=== PATIENT | female | born 1945 | race Caucasian/White ===

== ENCOUNTER → 2018-04-21 13:24 | Outpatient (CLI) | payer MEDICARE, OTHER, SELFPAY ==
--- NOTE | 2018-04-21 | DI.MG.S_ITS ---
BILATERAL DIGITAL SCREENING MAMMOGRAM 3D/2D WITH CAD: 04/21/2018 CLINICAL: Routine screening. Comparison is made to exams dated: 05/31/2012 mammogram and 01/06/2005 mammogram - [facility]. The tissue of both breasts is predominantly fatty. Current study was also evaluated with a Computer Aided Detection (CAD) system. No significant masses, calcifications, or other findings are seen in either breast. There has been no significant interval change. IMPRESSION: NEGATIVE There is no mammographic evidence of malignancy. A 1 year screening mammogram is recommended.(04/22/2019) This exam was interpreted at Station ID: [id number]. NOTE: For mammograms, a report in lay terms will be sent to the patient. Approximately 15% of breast malignancies will not be visualized mammographically. In the management of a palpable breast mass, a negative mammogram must not discourage biopsy of a clinically suspicious lesion. Electronically Signed By: Diana [email or web address]:04/21/2018 14:06:22 letter sent: Normal Exam ACR BI-RADS Category 1: Negative 3341F
== END ==
PROVIDERS: PCP Physician Assistant; Visit Provider Physician Assistant
DX: Z12.31 Encounter for screening mammogram for malignant neoplasm of breast (principal)
CPT/HCPCS: 77063; 77067

== ENCOUNTER → 2020-05-06 19:31 | Outpatient (ROUT) | payer MEDICARE, OTHER, SELFPAY ==
[2020-05-06 20:04] LABS: Alanine Aminotransferase 18 IU/L (<35); Albumin 4.3 g/dL (3.5-5.0); Albumin Globulin Ratio 1.4 (1.0-2.8); Alkaline Phosphatase 97 U/L (38-126); Aspartate Aminotransferase 25 IU/L (14-36); BUN Creatinine Ratio 23.1 (6-22); Bilirubin Total 0.5 mg/dL (0.2-1.3); Blood Urea Nitrogen 12 mg/dL (7-17); Calcium 9.4 mg/dL (8.4-10.2); Carbon Dioxide 30 mmol/L (22-32); Chloride 105 mmol/L (98-107); Cholesterol 258 mg/dL (140-199); Estimated Glomerular Filt Rate > 60.0 mL/min (>60); Globulin 3.1 g/dL (1.7-4.1); Glucose 105 mg/dL (80-110); HDL Cholesterol 58 mg/dL (40-60); HEMOLYSIS < 15 (0-50); LDL Cholesterol Calculated 154 mg/dL (<100); Potassium 4.4 mmol/L (3.4-5.1); Sodium 140 mmol/L (137-145); Total Protein 7.4 g/dL (6.3-8.2); Triglycerides 229 mg/dL (35-150)
== END ==
PROVIDERS: PCP Physician Assistant; Visit Provider Internal Medicine
DX: E78.5 Hyperlipidemia, unspecified (principal); I10 Essential (primary) hypertension
CPT/HCPCS: 80053; 80061

== ENCOUNTER → 2020-07-08 12:13 | Outpatient (CLI) | payer MEDICARE, OTHER, SELFPAY ==
--- NOTE | 2020-07-08 | DI.MG.S_ITS ---
BILATERAL DIGITAL SCREENING MAMMOGRAM 3D/2D WITH CAD: 07/08/2020 CLINICAL: Routine screening. Comparison is made to exams dated: 04/21/2018 mammogram - [facility], 05/31/2012 mammogram, and 01/06/2005 mammogram - [facility]. The tissue of both breasts is predominantly fatty. Current study was also evaluated with a Computer Aided Detection (CAD) system. There is a stable benign focal asymmetry in the right breast 2cm posterior to the nipple. No significant masses, calcifications, or other findings are seen in either breast. There has been no significant interval change. IMPRESSION: BENIGN There is no mammographic evidence of malignancy. A 1 year screening mammogram is recommended. This exam was interpreted at Station ID: [id number]. NOTE: For mammograms, a report in lay terms will be sent to the patient. Approximately 15% of breast malignancies will not be visualized mammographically. In the management of a palpable breast mass, a negative mammogram must not discourage biopsy of a clinically suspicious lesion. Electronically Signed By: Carlo Melo acr/:07/08/2020 12:54:03 letter sent: Normal Exam ACR BI-RADS Category 2: Benign Finding(s) 3342F
== END ==
PROVIDERS: PCP Internal Medicine; Referring Provider Internal Medicine; Visit Provider Internal Medicine
DX: Z12.31 Encounter for screening mammogram for malignant neoplasm of breast (principal); M85.88 Other specified disorders of bone density and structure, other site; Z78.0 Asymptomatic menopausal state; Z90.722 Acquired absence of ovaries, bilateral; Z87.891 Personal history of nicotine dependence
CPT/HCPCS: 77063; 77067; 77080

== ENCOUNTER → 2023-05-19 14:44 | Outpatient (CLI) | payer MEDICARE, OTHER, SELFPAY ==
--- NOTE | 2023-05-19 | DI.RAD.S_ITS ---
Bone Density Report Name: DEEDEE LIN Age: 77 Sex: Female Ethnicity: White Date of : 1945 Indication: osteopenia; Referring Provider: FANI CONTRERAS Study: Bone densitometry was performed. Exam Date: May 19, 2023 Accession number: [id number] Bone Density: Region BMD T-score Z-score Classification AP Spine(L1-L4) 0.950 -0.9 1.6 Normal Femoral Neck (Left) 0.681 -1.5 0.6 Osteopenia Total Hip (Left) 0.829 -0.9 0.9 Normal Femoral Neck (Right) 0.744 -0.9 1.2 Normal Total Hip (Right) 0.790 -1.2 0.6 Osteopenia Total Hip Mean 0.809 -1.1 0.8 Osteopenia World Health Organization criteria for BMD impression classify patients as: Normal (T-score at or above -1.0), Osteopenia (T-score between -1.0 and -2.5), or Osteoporosis (T-score at or below -2.5). 10-year Fracture Risk(1): Major Osteoporotic Fracture 12% Hip Fracture 2.5% Reported Risk Factors: [place] (), Neck BMD=0.681, BMI=28.7 (1) FRAX(R) Version 3.08. Fracture probability calculated for an untreated patient. Fracture probability may be lower if the patient has received treatment. Previous Exams: -- Region Exam Age BMD T-score BMD Change BMD Change Date g/cm2 vs Baseline vs Previous -- AP Spine (L1-L4) 05/19/2023 77 0.950 -0.9 0.002 (0.3%)# 0.002 (0.3%)# 07/08/2020 74 0.948 -0.9 Total Hip(Left) 05/19/2023 77 0.829 -0.9 0.031 (3.9%)# 0.031 (3.9%)# 07/08/2020 74 0.798 -1.2 Total Hip(Right) 05/19/2023 77 0.790 -1.2 0.027 (3.6%)# 0.027 (3.6%)# 07/08/2020 74 0.763 -1.5 -- *Denotes significance at 95% confidence level, LSC for AP Spine = 0.022 g/cm2, LSC for Total Hip = 0.027 g/cm2 # Denotes dissimilar scan types or analysis methods Impression: The patient has low bone mass, based on the Left Femoral Neck T-score. The patient has an estimated ten-year risk of hip fracture of 2.5% and an estimated ten-year risk of major fracture of 12%, based on the WHO FRAX algorithm. No significant bone loss was observed. Discussion: BONE DENSITY IS LOW AT ONE OR MORE SKELETAL SITES. This patient's lowest T-score is low at one or more skeletal sites. It meets the World Health Organization's (WHO) criteria for low bone mass (T-score between -1.0 and -2.5). The patient's 10-year risk of fracture as calculated by FRAX is less than the threshold where pharmacological therapy is recommended by the National Osteoporosis Foundation (NOF). However, all treatment decisions require clinical judgment and consideration of individual patient factors, including patient preferences, comorbidities, previous drug use, risk factors not captured in the FRAX model (e.g., frailty, falls, vitamin D deficiency, increased bone turnover, interval significant decline in bone density) and possible under or overestimation of fracture risk by FRAX. The patient should follow a healthful lifestyle (good nutrition with adequate calcium and vitamin D, and appropriate weight-bearing exercise). Follow-Up: Consider repeating this study in 2 to 3 years to reassess this patient's status, or sooner if there is some new clinical indication. Reported by: JOVANI MOTT M.D. on 05/19/2023 3:09:00 PM.
== END ==
PROVIDERS: Family Provider Physician Assistant; PCP Internal Medicine; Referring Provider Internal Medicine; Visit Provider Internal Medicine
DX: Z78.0 Asymptomatic menopausal state (principal); M85.852 Other specified disorders of bone density and structure, left thigh
CPT/HCPCS: 77080

== ENCOUNTER 2023-07-04 09:00 | Outpatient (RCR) | payer MEDICARE, OTHER, SELFPAY ==
--- NOTE | 2023-03-29 12:04 | PT.OIE ---
Current Diagnoses Nondisplaced fracture of shaft of right clavicle, initial encounter for closed fracture (03/29/23) Visit Care Team Role Provider Type Abbie Sandhu MD Primary Care Provider Physician Specialty: Internal Medicine Address: [place], [address] Phone: Email: Baltazar Sanford PA-C Attending Provider Non-Staff Family Provider Referring Provider Specialty: Medical Address: [address] [place] [address], [id number] Phone: Email: Physical Therapy Initial Evaluation PT-OP-A Visit Information Start: 03/29/23 09:19 Freq: Status: Active Protocol: Document 03/29/23 09:22 AB (Rec: 03/29/23 12:03 AB [id number]) Out-Patient Physical Therapy Visit Information Visit Information Visit Type Initial Evaluation Visit Start Time 09:15 Visit Stop Time 10:00 Total Visit Minutes 45 Visit Number 1 Number of 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 She was in a sling for about 2 weeks, then was instructed to do minimal activity, but avoid reaching up or lifting anything. Currently, she reports a tightness on the right side of her chest near her clavicle, pain/tension on the right side of her neck. She also states she started to get carpal tunnel from wearing the sling, as she sometimes gets pain down to her arm, and was given carpal tunnel exercises. The pt states she was instructed by her doctor to only perform stretching for her right arm. She is right hand dominant. Future Testing and Treatments Planned 04/05/23 ortho follow up Treatment Goals Patient/Caregiver Goals To be able to perform ADLs, IADLs and recreational activities Prior Functional Status Baseline Function- ADL's Independent Baseline Function- Mobility Independent Baseline Function- Work/School Retired Baseline Function- Recreation/Hobbies Gardening/yard work Current Functional Impairments (Reported) Functional Limitations- ADL's Difficulty grooming and getting dressed due to mobility deficits Functional Limitations- Work/School Retired Functional Limitations- Recreation/ Unable to perform gardening or Hobbies yardwork Functional Limitations- Other Unable to perform heavier IADLs PT-OP-C Subjective Start: 03/29/23 09:19 Freq: Status: Active Protocol: Document 03/29/23 09:22 AB (Rec: 03/29/23 12:03 AB [id number]) OP-PT Subjective Patient Comments Patient Comments See hx of current condition Patient Questionnaires Neck Disability Index NDI Score 24/50 Neck Disability Index Impairment 40 to 59% Impaired (Score 20- 29) Quick Dash- Upper Extremity Quick Dash UE Score 63.6% Quick Dash UE Impairment 60 to 79% Impaired (Score 60- 79) PT-OP-J Posture/Palpation/Skin Start: 03/29/23 09:19 Freq: Status: Active Protocol: Document 03/29/23 09:22 AB (Rec: 03/29/23 12:03 AB [id number]) Posture Evaluation Position Sitting Shoulder Posture (L) Elevated PT-OP-K Range of Motion Start: 03/29/23 09:19 Freq: Status: Active Protocol: Document 03/29/23 09:22 AB (Rec: 03/29/23 12:03 AB [id number]) Cervical Spine Range of Motion Cervical Spine Active Degrees Testing Position Sitting Flexion 52 Extension 30 Rotation Left 46 Rotation Right 55 Lateral Flexion Left 20 Lateral Flexion Right 30 ROM Limitations Soft Tissue Tightness,Pain Comments mild pain with rotation and SB to left Shoulder Goniometric Range of Motion Shoulder Right Active Shoulder ROM WFL No Testing Position Sitting Flexion 108 Abduction 86 External Rotation at 0 degrees Abduction 60 Internal Rotation Behind Back (text) L4 Comments Functional ER: occiput Pain with all motions except ER at 0D of ABD Left Active Shoulder ROM WFL Yes Testing Position Sitting Flexion 147 Abduction 160 External Rotation at 0 degrees Abduction 65 Internal Rotation Behind Back (text) T10 Comments Functional ER: T3 PT-OP-M Strength Start: 03/29/23 09:19 Freq: Status: Active Protocol: Document 03/29/23 09:22 AB (Rec: 03/29/23 12:03 AB [id number]) Shoulder Strength Shoulder Manual Muscle Testing Right Flexion 3- Fair- Extension 4 Good Abduction (C5) 3 Fair External Rotation 4- Good- Internal Rotation 4- Good- Comments Pain with flexion and ABD Left Flexion 4+ Good+ Extension 5 Normal Abduction (C5) 4+ Good+ External Rotation 4+ Good+ Internal Rotation 4+ Good+ Elbow/Forearm Strength Elbow and Forearm Manual Muscle Testing Right Flexion (C6) 5 Normal Extension (C7) 5 Normal Left Flexion (C6) 5 Normal Extension (C7) 5 Normal 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/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 Strength Hand Dominance Hand Dominance Right Hand Strength Right Comments WFL Left Comments WFL PT-OP-Q Treatments Start: 03/29/23 09:19 Freq: Status: Active Protocol: Document 03/29/23 09:22 AB (Rec: 03/29/23 12:03 AB [id number]) Therapeutic Exercises Supine Exercises Cervical rotation Side bilateral Comments to be performed 2x10 ea, 3 sec hold Standing Exercises IR strap stretch Side right Equipment Used towel Reps/Minutes x2, 5 sec hold Comments to be performed 2x10, 10 sec holds Cane shldr ER AAROM Standing Exercise Name cane shoulder ER at 0D of ABD Side right Equipment Used dowel/stick Reps/Minutes x2, 5 sec hold Comments to be performed 2x10, 10 sec holds Cane shldr ABD AAROM Side right Equipment Used dowel/stick Reps/Minutes x2, 5 sec hold Comments to be performed 2x10, 10 sec holds Cane shldr flex AAROM Side right Equipment Used dowel/stick Reps/Minutes x2, 5 sec hold Comments to be performed 2x10, 10 sec holds Self-Care/Home Management Treatment Education Patient Education Home Exercise Program,Pain Management PT-OP-T Assessment and Plan Start: 03/29/23 09:19 Freq: Status: Active Protocol: Document 03/29/23 09:22 AB (Rec: 03/29/23 12:03 AB [id number]) Physical Therapy Assessment Rehab Potential Rehabilitation Potential Good Evaluation Complexity Number of Personal Factors/Comorbidities 1-2 Number of Body Systems Impaired 1-2 Clinical Presentation at Evaluation Stable Impairments Impairments Functional Activities,Pain, Posture,ROM,Soft Tissue Mobility,Strength Goals Seven Impairment Patient questionnaire Short Term Goal (STG) Pt's QuickDASH score to improve to 50% or better and NDI score to improve to 14/50 or better to demonstrate improving symptoms for an improved QOL. STG Duration 4 Penitentiary Goal (LTG) Pt's QuickDASH score to improve to 30% or better and NDI score to improve to 4/50 or better to demonstrate improving symptoms for an improved QOL. LTG Duration 8 Six Impairment C spine AROM deficits Short Term Goal (STG) Pt's cervical spine left lateral flexion AROM to improve to 25 degrees or better to show improving ROM in order to improve ability to perform ADLs and IADLs. STG Duration 4 Public Relations Supervisor Goal (LTG) Pt's cervical spine left lateral flexion AROM to improve to 30 degrees or better to show improving ROM in order to improve ability to perform ADLs and IADLs. Five Impairment C spine AROM deficits Short Term Goal (STG) Pt's cervical spine left rotation AROM to improve to 50 degrees or better to show improving ROM in order to improve ability to perform ADLs and IADLs. STG Duration 4 Penitentiary Goal (LTG) Pt's cervical spine left rotation AROM to improve to 55 degrees or better to show improving ROM in order to improve ability to perform ADLs and IADLs. LTG Duration 8 Four Impairment Shoulder AROM deficits Short Term Goal (STG) Pt to improve shoulder functional IR AROM to L1 or better to show improving ROM in order to improve ability to perform ADLs and IADLs. STG Duration 4 Penitentiary Goal (LTG) Pt to improve shoulder functional IR AROM to T10 or better to show improving ROM in order to improve ability to perform ADLs and IADLs. LTG Duration 8 Three Impairment Shoulder AROM deficits Short Term Goal (STG) Pt to improve shoulder functional ER AROM to C7 or better to show improving ROM in order to improve ability to perform ADLs and IADLs. STG Duration 4 Public Relations Supervisor Goal (LTG) Pt to improve shoulder functional ER AROM to T3 or better to show improving ROM in order to improve ability to perform ADLs and IADLs. LTG Duration 8 Two Impairment Shoulder AROM deficits Short Term Goal (STG) Pt to improve shoulder ABD AROM to 110 degrees or better to show improving ROM in order to improve ability to perform ADLs and IADLs. STG Duration 4 Public Relations Supervisor Goal (LTG) Pt to improve shoulder ABD AROM to 160 degrees or better to show improving ROM in order to improve ability to perform ADLs and IADLs. LTG Duration 8 One Impairment Shoulder AROM deficits Short Term Goal (STG) Pt to improve shoulder flexion AROM to 120 degrees or better to show improving ROM in order to improve ability to perform ADLs and IADLs. STG Duration 4 Public Relations Supervisor Goal (LTG) Pt to improve shoulder flexion AROM to 150 degrees or better to show improving ROM in order to improve ability to perform ADLs and IADLs. LTG Duration 8 Assessment Summary Assessment Nighat Hernandez is a 77 year old female patient presenting to outpatient PT clinic s/p right clavicle fracture which occurred on 01/13/23. Today's PT evaluation revealed deficits consistent with this type of injury including right UE AROM deficits, UE weakness , cervical spine AROM deficits, and pain that was reproduced with ROM and MMT testing. Based on these findings, the pt would benefit from skilled PT to improve these impairments in order to be able to perform ADLs, IADLs and recreational activities, to return to her PLOF. The pt' s rehab potential is good, based on her PLOF and motivation to improve her symptoms. Physical Therapy Plan Frequency and Duration Frequency of Treatment 2x/Week Duration of treatment (weeks) 8 Plan of Care Start Date 03/29/23 Plan of Care End Date 05/24/23 Therapeutic Interventions Therapeutic Interventions Home Exercise Program,Joint Mobilizations,Manual Therapy, Neuromuscular Re-education, Patient/Caregiver Education, Self-Care/Home Management,Soft Tissue Mobilization,Taping, Therapeutic Activities, Therapeutic Exercises Modalities Cold Pack/Ice Massage,Electric Stimulation,Hot Packs Next Visit Focus/Plan Next Note Type Treatment Note Next Visit Plan Review HEP. Add UE and cervical spine mobility exercises as tolerated, and low level periscapular strengthening exercises.
--- NOTE | 2023-03-29 12:05 | PT.OPPOC ---
Physical, Occupational & Speech Therapy At [facility] Current Diagnoses Nondisplaced fracture of shaft of right clavicle, initial encounter for closed fracture (03/29/23) Visit Care Team Role Provider Type Abbie Sandhu MD Primary Care Provider Physician Specialty: Internal Medicine Address: [place], [address] Phone: Email: Baltazar Sanford PA-C Attending Provider Non-Staff Family Provider Referring Provider Specialty: Medical Address: [address] [place] [address], [address] Phone: Email: Plan Of Care PT-OP-T Assessment and Plan Start: 03/29/23 09:19 Freq: Status: Active Protocol: Document 03/29/23 09:22 AB (Rec: 03/29/23 12:03 AB [id number]) Physical Therapy Assessment Rehab Potential Rehabilitation Potential Good Evaluation Complexity Number of Personal Factors/Comorbidities 1-2 Number of Body Systems Impaired 1-2 Clinical Presentation at Evaluation Stable Impairments Impairments Functional Activities,Pain, Posture,ROM,Soft Tissue Mobility,Strength Goals Seven Impairment Patient questionnaire Short Term Goal (STG) Pt's QuickDASH score to improve to 50% or better and NDI score to improve to 14/50 or better to demonstrate improving symptoms for an improved QOL. STG Duration 4 Paper Coater Goal (LTG) Pt's QuickDASH score to improve to 30% or better and NDI score to improve to 4/50 or better to demonstrate improving symptoms for an improved QOL. LTG Duration 8 Six Impairment C spine AROM deficits Short Term Goal (STG) Pt's cervical spine left lateral flexion AROM to improve to 25 degrees or better to show improving ROM in order to improve ability to perform ADLs and IADLs. STG Duration 4 Long-Term Goal (LTG) Pt's cervical spine left lateral flexion AROM to improve to 30 degrees or better to show improving ROM in order to improve ability to perform ADLs and IADLs. Five Impairment C spine AROM deficits Short Term Goal (STG) Pt's cervical spine left rotation AROM to improve to 50 degrees or better to show improving ROM in order to improve ability to perform ADLs and IADLs. STG Duration 4 Paper Coater Goal (LTG) Pt's cervical spine left rotation AROM to improve to 55 degrees or better to show improving ROM in order to improve ability to perform ADLs and IADLs. LTG Duration 8 Four Impairment Shoulder AROM deficits Short Term Goal (STG) Pt to improve shoulder functional IR AROM to L1 or better to show improving ROM in order to improve ability to perform ADLs and IADLs. STG Duration 4 Long-Term Goal (LTG) Pt to improve shoulder functional IR AROM to T10 or better to show improving ROM in order to improve ability to perform ADLs and IADLs. LTG Duration 8 Three Impairment Shoulder AROM deficits Short Term Goal (STG) Pt to improve shoulder functional ER AROM to C7 or better to show improving ROM in order to improve ability to perform ADLs and IADLs. STG Duration 4 Paper Coater Goal (LTG) Pt to improve shoulder functional ER AROM to T3 or better to show improving ROM in order to improve ability to perform ADLs and IADLs. LTG Duration 8 Two Impairment Shoulder AROM deficits Short Term Goal (STG) Pt to improve shoulder ABD AROM to 110 degrees or better to show improving ROM in order to improve ability to perform ADLs and IADLs. STG Duration 4 Paper Coater Goal (LTG) Pt to improve shoulder ABD AROM to 160 degrees or better to show improving ROM in order to improve ability to perform ADLs and IADLs. LTG Duration 8 One Impairment Shoulder AROM deficits Short Term Goal (STG) Pt to improve shoulder flexion AROM to 120 degrees or better to show improving ROM in order to improve ability to perform ADLs and IADLs. STG Duration 4 Paper Coater Goal (LTG) Pt to improve shoulder flexion AROM to 150 degrees or better to show improving ROM in order to improve ability to perform ADLs and IADLs. LTG Duration 8 Assessment Summary Assessment Nighat Hernandez is a 77 year old female patient presenting to outpatient PT clinic s/p right clavicle fracture which occurred on 01/13/23. Today's PT evaluation revealed deficits consistent with this type of injury including right UE AROM deficits, UE weakness , cervical spine AROM deficits, and pain that was reproduced with ROM and MMT testing. Based on these findings, the pt would benefit from skilled PT to improve these impairments in order to be able to perform ADLs, IADLs and recreational activities, to return to her PLOF. The pt' s rehab potential is good, based on her PLOF and motivation to improve her symptoms. Physical Therapy Plan Frequency and Duration Frequency of Treatment 2x/Week Duration of treatment (weeks) 8 Plan of Care Start Date 03/29/23 Plan of Care End Date 05/24/23 Therapeutic Interventions Therapeutic Interventions Home Exercise Program,Joint Mobilizations,Manual Therapy, Neuromuscular Re-education, Patient/Caregiver Education, Self-Care/Home Management,Soft Tissue Mobilization,Taping, Therapeutic Activities, Therapeutic Exercises Modalities Cold Pack/Ice Massage,Electric Stimulation,Hot Packs Next Visit Focus/Plan Next Note Type Treatment Note Next Visit Plan Review HEP. Add UE and cervical spine mobility exercises as tolerated, and low level periscapular strengthening exercises. Plan of Care Dates Plan of Care Start Date 03/29/23 Plan of Care End Date 05/24/23 Electronically Signed by: Luis Peoples, PT 03/29/23 1060 If you are in agreement with this Plan of Care, please return a signed and dated copy. I have reviewed this Plan of Care and certify that the skilled therapy services above are required to meet the patient?s needs. Physician Signature Date Printed Name and Credentials Clinical Instructor Signature Printed Name and Credentials
--- NOTE | 2023-04-01 08:15 | PT.OTN ---
Current Diagnoses Nondisplaced fracture of shaft of right clavicle, initial encounter for closed fracture (04/01/23) Physical Therapy Treatment Note PT-OP-A Visit Information Start: 03/29/23 09:19 Freq: Status: Active Protocol: Document 04/01/23 07:30 SP (Rec: 04/01/23 08:44 SP [id number]) Out-Patient Physical Therapy Visit Information Visit Information Visit Type Treatment Note Visit Start Time 07:30 Visit Stop Time 08:15 Total Visit Minutes 45 Visit Number 2 Number of MATTRESS PACKER Visits 1 Precautions Precautions Osteopenia PT-OP-B Current Condition Start: 03/29/23 09:19 Freq: Status: Active Protocol: Document 03/29/23 09:22 AB (Rec: 03/29/23 12:03 AB [id number]) Current Condition History of Current Condition Onset Date 01/13/23 History of Current Condition Pt reports she passed out after giving blood and fell, which caused a right clavicular fracture. She was in a sling for about 2 weeks, then was instructed to do minimal activity, but avoid reaching up or lifting anything. Currently, she reports a tightness on the right side of her chest near her clavicle, pain/tension on the right side of her neck. She also states she started to get carpal tunnel from wearing the sling, as she sometimes gets pain down to her arm, and was given carpal tunnel exercises. The pt states she was instructed by her doctor to only perform stretching for her right arm. She is right hand dominant. Future Testing and Treatments Planned 04/05/23 ortho follow up Treatment Goals Patient/Caregiver Goals To be able to perform ADLs, IADLs and recreational activities Prior Functional Status Baseline Function- ADL's Independent Baseline Function- Mobility Independent Baseline Function- Work/School Retired Baseline Function- Recreation/Hobbies Gardening/yard work Current Functional Impairments (Reported) Functional Limitations- ADL's Difficulty grooming and getting dressed due to mobility deficits Functional Limitations- Work/School Retired Functional Limitations- Recreation/ Unable to perform gardening or Hobbies yardwork Functional Limitations- Other Unable to perform heavier IADLs PT-OP-C Subjective Start: 03/29/23 09:19 Freq: Status: Active Protocol: Document 04/01/23 07:30 SP (Rec: 04/01/23 08:44 SP [id number]) OP-PT Subjective Patient Comments Patient Comments Pt reports did ok with HEP using wand and can't go as high as think the PT wanted. PT-OP-J Posture/Palpation/Skin Start: 03/29/23 09:19 Freq: Status: Active Protocol: Document 03/29/23 09:22 AB (Rec: 03/29/23 12:03 AB [id number]) Posture Evaluation Position Sitting Shoulder Posture (L) Elevated PT-OP-K Range of Motion Start: 03/29/23 09:19 Freq: Status: Active Protocol: Document 03/29/23 09:22 AB (Rec: 03/29/23 12:03 AB [id number]) Cervical Spine Range of Motion Cervical Spine Active Degrees Testing Position Sitting Flexion 52 Extension 30 Rotation Left 46 Rotation Right 55 Lateral Flexion Left 20 Lateral Flexion Right 30 ROM Limitations Soft Tissue Tightness,Pain Comments mild pain with rotation and SB to left Shoulder Goniometric Range of Motion Shoulder Right Active Shoulder ROM WFL No Testing Position Sitting Flexion 108 Abduction 86 External Rotation at 0 degrees Abduction 60 Internal Rotation Behind Back (text) L4 Comments Functional ER: occiput Pain with all motions except ER at 0D of ABD Left Active Shoulder ROM WFL Yes Testing Position Sitting Flexion 147 Abduction 160 External Rotation at 0 degrees Abduction 65 Internal Rotation Behind Back (text) T10 Comments Functional ER: T3 PT-OP-M Strength Start: 03/29/23 09:19 Freq: Status: Active Protocol: Document 03/29/23 09:22 AB (Rec: 03/29/23 12:03 AB [id number]) Shoulder Strength Shoulder Manual Muscle Testing Right Flexion 3- Fair- Extension 4 Good Abduction (C5) 3 Fair External Rotation 4- Good- Internal Rotation 4- Good- Comments Pain with flexion and ABD Left Flexion 4+ Good+ Extension 5 Normal Abduction (C5) 4+ Good+ External Rotation 4+ Good+ Internal Rotation 4+ Good+ Elbow/Forearm Strength Elbow and Forearm Manual Muscle Testing Right Flexion (C6) 5 Normal Extension (C7) 5 Normal Left Flexion (C6) 5 Normal Extension (C7) 5 Normal Hand Search Engine Marketing Specialist/Pinch Strength Hand Dominance Hand Dominance Right Hand Strength Right Comments WFL Left Comments WFL PT-OP-Q Treatments Start: 03/29/23 09:19 Freq: Status: Active Protocol: Document 04/01/23 07:30 SP (Rec: 04/01/23 08:44 SP [id number]) Therapeutic Exercises Supine Exercises Cervical rotation Supine Exercise Name HEP reviewed: supine, standing back to wall (towel behind head) Side bilateral Reps/Minutes 10 reps x3 SH during tx (2x10 HEP discussed) Comments occasional cue for chin tuck neutral before rotate. Sidelying Exercises open book Sidelying Exercise Name added HEP: modified hand on head Side right Reps/Minutes x5 reps Comments cued slow scapular retraction glide and TS rotation- good feedback response Sitting Exercises UT, LS, scalene stretch Sitting Exercise Name added HEP Side right Reps/Minutes 3 reps x10 SH Comments cued set up and gentle stretch - good response Standing Exercises scap retraction Standing Exercise Name added to HEP Side bilateral Reps/Minutes 5 reps x5 SH Comments discussed perform through day, good feedback less neck/R shld tension IR strap stretch Standing Exercise Name HEP reviewed Side right Equipment Used towel Reps/Minutes 2x10, 10 sec holds Cane shldr ER AAROM Standing Exercise Name cane shoulder ER at 0D of ABD: HEP reviewed Side right Equipment Used dowel/stick, towel between elbow/trunk Reps/Minutes 2x10, 10 sec holds Comments performed back to wall, awareness not let trunk rotate - helpful Cane shldr ABD AAROM Standing Exercise Name HEP reviewed Side right Equipment Used dowel/stick Reps/Minutes 2x10, 10 sec holds Comments good form Cane shldr flex AAROM Standing Exercise Name HEP reviewed Side right Equipment Used dowel/stick Reps/Minutes 2x10, 10 sec holds Comments good form Other Exercises Self STMs Other Exercise Name added HEP Side right Equipment Used racquetball wall Reps/Minutes 1 min Manual Therapy Treatment Soft Tissue Mobilization R shld Body Location supra, infras, pec, subclavius Mobilization Type Strumming,Sustained Pressure, Other Intensity/Depth Superficial Body Position Sidelying Comments manual and ed sustained pressure over pec MWM R UE small AROM, ed use ball wall over posterior scap for self massage decrease muscular tightness application home. neck Body Location suboccipitals, SOR, UT, LS Mobilization Type Strumming,Sustained Pressure Intensity/Depth Superficial Body Position Hooklying Comments manual, added stretching UT/ LS self Joint Mobilizations R scapulothoracic Direction retraction, depression Grade II Body Position Sidelying Reps/Duration 1 min Comments AAROM with STMs posterior scap , then ed self scap retraction , better fluid glide understanding, good feedback response less neck/shld tension. PT-OP-T Assessment and Plan Start: 03/29/23 09:19 Freq: Status: Active Protocol: Document 04/01/23 07:30 SP (Rec: 04/01/23 08:44 SP [id number]) Physical Therapy Assessment Goals Seven Impairment Patient questionnaire Short Term Goal (STG) Pt's QuickDASH score to improve to 50% or better and NDI score to improve to 14/50 or better to demonstrate improving symptoms for an improved QOL. STG Duration 4 Racing Driver Goal (LTG) Pt's QuickDASH score to improve to 30% or better and NDI score to improve to 4/50 or better to demonstrate improving symptoms for an improved QOL. LTG Duration 8 Six Impairment C spine AROM deficits Short Term Goal (STG) Pt's cervical spine left lateral flexion AROM to improve to 25 degrees or better to show improving ROM in order to improve ability to perform ADLs and IADLs. STG Duration 4 Racing Driver Goal (LTG) Pt's cervical spine left lateral flexion AROM to improve to 30 degrees or better to show improving ROM in order to improve ability to perform ADLs and IADLs. Five Impairment C spine AROM deficits Short Term Goal (STG) Pt's cervical spine left rotation AROM to improve to 50 degrees or better to show improving ROM in order to improve ability to perform ADLs and IADLs. STG Duration 4 Racing Driver Goal (LTG) Pt's cervical spine left rotation AROM to improve to 55 degrees or better to show improving ROM in order to improve ability to perform ADLs and IADLs. LTG Duration 8 Four Impairment Shoulder AROM deficits Short Term Goal (STG) Pt to improve shoulder functional IR AROM to L1 or better to show improving ROM in order to improve ability to perform ADLs and IADLs. STG Duration 4 Racing Driver Goal (LTG) Pt to improve shoulder functional IR AROM to T10 or better to show improving ROM in order to improve ability to perform ADLs and IADLs. LTG Duration 8 Three Impairment Shoulder AROM deficits Short Term Goal (STG) Pt to improve shoulder functional ER AROM to C7 or better to show improving ROM in order to improve ability to perform ADLs and IADLs. STG Duration 4 Racing Driver Goal (LTG) Pt to improve shoulder functional ER AROM to T3 or better to show improving ROM in order to improve ability to perform ADLs and IADLs. LTG Duration 8 Two Impairment Shoulder AROM deficits Short Term Goal (STG) Pt to improve shoulder ABD AROM to 110 degrees or better to show improving ROM in order to improve ability to perform ADLs and IADLs. STG Duration 4 Racing Driver Goal (LTG) Pt to improve shoulder ABD AROM to 160 degrees or better to show improving ROM in order to improve ability to perform ADLs and IADLs. LTG Duration 8 One Impairment Shoulder AROM deficits Short Term Goal (STG) Pt to improve shoulder flexion AROM to 120 degrees or better to show improving ROM in order to improve ability to perform ADLs and IADLs. STG Duration 4 Correction Goal (LTG) Pt to improve shoulder flexion AROM to 150 degrees or better to show improving ROM in order to improve ability to perform ADLs and IADLs. LTG Duration 8 Assessment Summary Assessment Pt responded well to manual and education for scapular fluid mobility with added scap retraction, modified open book and neck stretching, reported decreased neck and shoulder tension able to perform cane exercises more mobiltiy. Physical Therapy Plan Frequency and Duration Frequency of Treatment 2x/Week Duration of treatment (weeks) 8 Plan of Care Start Date 03/29/23 Plan of Care End Date 05/24/23 Therapeutic Interventions Therapeutic Interventions Home Exercise Program,Joint Mobilizations,Manual Therapy, Neuromuscular Re-education, Patient/Caregiver Education, Self-Care/Home Management,Soft Tissue Mobilization,Taping, Therapeutic Activities, Therapeutic Exercises Modalities Cold Pack/Ice Massage,Electric Stimulation,Hot Packs Next Visit Focus/Plan Next Note Type Treatment Note Next Visit Plan Review HEP. Assess manual to Lat, subscap, Teres for scap mobility to reach OH. POC: Add UE and cervical spine mobility exercises as tolerated, and low level periscapular strengthening exercises.
--- NOTE | 2023-04-04 10:45 | PT.OTN ---
Current Diagnoses Nondisplaced fracture of shaft of right clavicle, initial encounter for closed fracture (04/04/23) Physical Therapy Treatment Note PT-OP-A Visit Information Start: 03/29/23 09:19 Freq: Status: Active Protocol: Document 04/04/23 09:17 AB (Rec: 04/04/23 10:45 AB [id number]) Out-Patient Physical Therapy Visit Information Visit Information Visit Type Treatment Note Visit Start Time 09:17 Visit Stop Time 10:00 Total Visit Minutes 43 Visit Number 3 Number of DIRECTOR OF DEMENTIA OPERATIONS Visits 1 PT-OP-B Current Condition Start: 03/29/23 09:19 Freq: Status: Active Protocol: Document 03/29/23 09:22 AB (Rec: 03/29/23 12:03 AB [id number]) Current Condition History of Current Condition Onset Date 01/13/23 History of Current Condition Pt reports she passed out after giving blood and fell, which caused a right clavicular fracture. She was in a sling for about 2 weeks, then was instructed to do minimal activity, but avoid reaching up or lifting anything. Currently, she reports a tightness on the right side of her chest near her clavicle, pain/tension on the right side of her neck. She also states she started to get carpal tunnel from wearing the sling, as she sometimes gets pain down to her arm, and was given carpal tunnel exercises. The pt states she was instructed by her doctor to only perform stretching for her right arm. She is right hand dominant. Future Testing and Treatments Planned 04/05/23 ortho follow up Treatment Goals Patient/Caregiver Goals To be able to perform ADLs, IADLs and recreational activities Prior Functional Status Baseline Function- ADL's Independent Baseline Function- Mobility Independent Baseline Function- Work/School Retired Baseline Function- Recreation/Hobbies Gardening/yard work Current Functional Impairments (Reported) Functional Limitations- ADL's Difficulty grooming and getting dressed due to mobility deficits Functional Limitations- Work/School Retired Functional Limitations- Recreation/ Unable to perform gardening or Hobbies yardwork Functional Limitations- Other Unable to perform heavier IADLs PT-OP-C Subjective Start: 03/29/23 09:19 Freq: Status: Active Protocol: Document 04/04/23 09:17 AB (Rec: 04/04/23 10:45 AB [id number]) OP-PT Subjective Patient Comments Patient Comments The pt reports she is noticing improvements in her mobility and her neck pain discomfort is also improving. PT-OP-J Posture/Palpation/Skin Start: 03/29/23 09:19 Freq: Status: Active Protocol: Document 03/29/23 09:22 AB (Rec: 03/29/23 12:03 AB [id number]) Posture Evaluation Position Sitting Shoulder Posture (L) Elevated PT-OP-K Range of Motion Start: 03/29/23 09:19 Freq: Status: Active Protocol: Document 03/29/23 09:22 AB (Rec: 03/29/23 12:03 AB [id number]) Cervical Spine Range of Motion Cervical Spine Active Degrees Testing Position Sitting Flexion 52 Extension 30 Rotation Left 46 Rotation Right 55 Lateral Flexion Left 20 Lateral Flexion Right 30 ROM Limitations Soft Tissue Tightness,Pain Comments mild pain with rotation and SB to left Shoulder Goniometric Range of Motion Shoulder Right Active Shoulder ROM WFL No Testing Position Sitting Flexion 108 Abduction 86 External Rotation at 0 degrees Abduction 60 Internal Rotation Behind Back (text) L4 Comments Functional ER: occiput Pain with all motions except ER at 0D of ABD Left Active Shoulder ROM WFL Yes Testing Position Sitting Flexion 147 Abduction 160 External Rotation at 0 degrees Abduction 65 Internal Rotation Behind Back (text) T10 Comments Functional ER: T3 PT-OP-M Strength Start: 03/29/23 09:19 Freq: Status: Active Protocol: Document 03/29/23 09:22 AB (Rec: 03/29/23 12:03 AB [id number]) Shoulder Strength Shoulder Manual Muscle Testing Right Flexion 3- Fair- Extension 4 Good Abduction (C5) 3 Fair External Rotation 4- Good- Internal Rotation 4- Good- Comments Pain with flexion and ABD Left Flexion 4+ Good+ Extension 5 Normal Abduction (C5) 4+ Good+ External Rotation 4+ Good+ Internal Rotation 4+ Good+ Elbow/Forearm Strength Elbow and Forearm Manual Muscle Testing Right Flexion (C6) 5 Normal Extension (C7) 5 Normal Left Flexion (C6) 5 Normal Extension (C7) 5 Normal Hand Vat Operator/Pinch Strength Hand Dominance Hand Dominance Right Hand Strength Right Comments WFL Left Comments WFL PT-OP-Q Treatments Start: 03/29/23 09:19 Freq: Status: Active Protocol: Document 04/04/23 09:17 AB (Rec: 04/04/23 10:45 AB [id number]) Cardio Equipment Upper Body Ergometer (UBE) Duration (Minutes) 5 Other 2.5 fwd, 2.5 bwd Therapeutic Exercises Supine Exercises Snow angels on 1/2 foam roller Side bilateral Reps/Minutes x5 Comments cues for scap retraction Sidelying Exercises open book Sidelying Exercise Name reviewed; modified hand on head Side right Reps/Minutes x10 reps Sitting Exercises UT, LS, scalene stretch Sitting Exercise Name reviewed Side right Reps/Minutes 3 reps x10 SH Standing Exercises Corner pec stretch Standing Exercise Name Arms in A, W and Y position Side bilateral Reps/Minutes 2x20 sec ea TB rows Side bilateral Resistance peach TB Reps/Minutes 2x15 Comments cues for proper posture Ball on wall shldr flex Side bilateral Equipment Used blue montserratian ball Reps/Minutes 10x 5 sec hold Comments walk ball up wall scap retraction Standing Exercise Name reviewed Side bilateral Reps/Minutes 10 reps x5 SH PT-OP-T Assessment and Plan Start: 03/29/23 09:19 Freq: Status: Active Protocol: Document 04/04/23 09:17 AB (Rec: 04/04/23 10:45 AB [id number]) Physical Therapy Assessment Goals Seven Impairment Patient questionnaire Short Term Goal (STG) Pt's QuickDASH score to improve to 50% or better and NDI score to improve to 14/50 or better to demonstrate improving symptoms for an improved QOL. STG Duration 4 Half-Way Goal (LTG) Pt's QuickDASH score to improve to 30% or better and NDI score to improve to 4/50 or better to demonstrate improving symptoms for an improved QOL. LTG Duration 8 Six Impairment C spine AROM deficits Short Term Goal (STG) Pt's cervical spine left lateral flexion AROM to improve to 25 degrees or better to show improving ROM in order to improve ability to perform ADLs and IADLs. STG Duration 4 Certified Registered Nurse Anesthetist Goal (LTG) Pt's cervical spine left lateral flexion AROM to improve to 30 degrees or better to show improving ROM in order to improve ability to perform ADLs and IADLs. Five Impairment C spine AROM deficits Short Term Goal (STG) Pt's cervical spine left rotation AROM to improve to 50 degrees or better to show improving ROM in order to improve ability to perform ADLs and IADLs. STG Duration 4 Certified Registered Nurse Anesthetist Goal (LTG) Pt's cervical spine left rotation AROM to improve to 55 degrees or better to show improving ROM in order to improve ability to perform ADLs and IADLs. LTG Duration 8 Four Impairment Shoulder AROM deficits Short Term Goal (STG) Pt to improve shoulder functional IR AROM to L1 or better to show improving ROM in order to improve ability to perform ADLs and IADLs. STG Duration 4 Half-Way Goal (LTG) Pt to improve shoulder functional IR AROM to T10 or better to show improving ROM in order to improve ability to perform ADLs and IADLs. LTG Duration 8 Three Impairment Shoulder AROM deficits Short Term Goal (STG) Pt to improve shoulder functional ER AROM to C7 or better to show improving ROM in order to improve ability to perform ADLs and IADLs. STG Duration 4 Certified Registered Nurse Anesthetist Goal (LTG) Pt to improve shoulder functional ER AROM to T3 or better to show improving ROM in order to improve ability to perform ADLs and IADLs. LTG Duration 8 Two Impairment Shoulder AROM deficits Short Term Goal (STG) Pt to improve shoulder ABD AROM to 110 degrees or better to show improving ROM in order to improve ability to perform ADLs and IADLs. STG Duration 4 Half-Way Goal (LTG) Pt to improve shoulder ABD AROM to 160 degrees or better to show improving ROM in order to improve ability to perform ADLs and IADLs. LTG Duration 8 One Impairment Shoulder AROM deficits Short Term Goal (STG) Pt to improve shoulder flexion AROM to 120 degrees or better to show improving ROM in order to improve ability to perform ADLs and IADLs. STG Duration 4 Certified Registered Nurse Anesthetist Goal (LTG) Pt to improve shoulder flexion AROM to 150 degrees or better to show improving ROM in order to improve ability to perform ADLs and IADLs. LTG Duration 8 Assessment Summary Assessment The pt demonstrated good recall of HEP added last visit . Overall, she demonstrates some improvements in UE mobility but continues to require verbal cues for good posture and to retract shoulder blades for better GH and scapulothoracic mechanics. The pt continues to benefit from skilled PT to improve her deficits to increase her level of function. Physical Therapy Plan Frequency and Duration Frequency of Treatment 2x/Week Duration of treatment (weeks) 8 Plan of Care Start Date 03/29/23 Plan of Care End Date 05/24/23 Therapeutic Interventions Therapeutic Interventions Home Exercise Program,Joint Mobilizations,Manual Therapy, Neuromuscular Re-education, Patient/Caregiver Education, Self-Care/Home Management,Soft Tissue Mobilization,Taping, Therapeutic Activities, Therapeutic Exercises Modalities Cold Pack/Ice Massage,Electric Stimulation,Hot Packs Next Visit Focus/Plan Next Note Type Treatment Note Next Visit Plan Add UE and cervical spine mobility exercises as tolerated, and low level periscapular strengthening exercises.
--- NOTE | 2023-04-11 12:20 | PT.OTN ---
Current Diagnoses Nondisplaced fracture of shaft of right clavicle, initial encounter for closed fracture (04/11/23) Physical Therapy Treatment Note PT-OP-A Visit Information Start: 03/29/23 09:19 Freq: Status: Active Protocol: Document 04/11/23 11:31 NBM (Rec: 04/11/23 12:19 NBM [id number]) Out-Patient Physical Therapy Visit Information Visit Information Visit Type Treatment Note Visit Start Time 11:31 Visit Stop Time 12:15 Total Visit Minutes 44 Visit Number 4 Number of CHIEF ANALYTICS OFFICER Visits 1 Precautions Precautions Osteopenia PT-OP-B Current Condition Start: 03/29/23 09:19 Freq: Status: Active Protocol: Document 03/29/23 09:22 AB (Rec: 03/29/23 12:03 AB [id number]) Current Condition History of Current Condition Onset Date 01/13/23 History of Current Condition Pt reports she passed out after giving blood and fell, which caused a right clavicular fracture. She was in a sling for about 2 weeks, then was instructed to do minimal activity, but avoid reaching up or lifting anything. Currently, she reports a tightness on the right side of her chest near her clavicle, pain/tension on the right side of her neck. She also states she started to get carpal tunnel from wearing the sling, as she sometimes gets pain down to her arm, and was given carpal tunnel exercises. The pt states she was instructed by her doctor to only perform stretching for her right arm. She is right hand dominant. Future Testing and Treatments Planned 04/05/23 ortho follow up Treatment Goals Patient/Caregiver Goals To be able to perform ADLs, IADLs and recreational activities Prior Functional Status Baseline Function- ADL's Independent Baseline Function- Mobility Independent Baseline Function- Work/School Retired Baseline Function- Recreation/Hobbies Gardening/yard work Current Functional Impairments (Reported) Functional Limitations- ADL's Difficulty grooming and getting dressed due to mobility deficits Functional Limitations- Work/School Retired Functional Limitations- Recreation/ Unable to perform gardening or Hobbies yardwork Functional Limitations- Other Unable to perform heavier IADLs PT-OP-C Subjective Start: 03/29/23 09:19 Freq: Status: Active Protocol: Document 04/11/23 11:31 NBM (Rec: 04/11/23 12:19 NBM [id number]) OP-PT Subjective Patient Comments Patient Comments Nighat reports her range is improving and she can reach her top shelf in the cupboard. She can bend over and pick things up off the floor now. Flower pots are still too heavy to move. She has one corner in the house to do pec stretch but it's a bit difficult. Open book stretch is not comfortable and sometimes hurts. She has an appt with orthopedic surgeon this week or next. She dropped spouse of at ER today. PT-OP-J Posture/Palpation/Skin Start: 03/29/23 09:19 Freq: Status: Active Protocol: Document 03/29/23 09:22 AB (Rec: 03/29/23 12:03 AB [id number]) Posture Evaluation Position Sitting Shoulder Posture (L) Elevated PT-OP-K Range of Motion Start: 03/29/23 09:19 Freq: Status: Active Protocol: Document 03/29/23 09:22 AB (Rec: 03/29/23 12:03 AB [id number]) Cervical Spine Range of Motion Cervical Spine Active Degrees Testing Position Sitting Flexion 52 Extension 30 Rotation Left 46 Rotation Right 55 Lateral Flexion Left 20 Lateral Flexion Right 30 ROM Limitations Soft Tissue Tightness,Pain Comments mild pain with rotation and SB to left Shoulder Goniometric Range of Motion Shoulder Right Active Shoulder ROM WFL No Testing Position Sitting Flexion 108 Abduction 86 External Rotation at 0 degrees Abduction 60 Internal Rotation Behind Back (text) L4 Comments Functional ER: occiput Pain with all motions except ER at 0D of ABD Left Active Shoulder ROM WFL Yes Testing Position Sitting Flexion 147 Abduction 160 External Rotation at 0 degrees Abduction 65 Internal Rotation Behind Back (text) T10 Comments Functional ER: T3 PT-OP-M Strength Start: 03/29/23 09:19 Freq: Status: Active Protocol: Document 03/29/23 09:22 AB (Rec: 03/29/23 12:03 AB [id number]) Shoulder Strength Shoulder Manual Muscle Testing Right Flexion 3- Fair- Extension 4 Good Abduction (C5) 3 Fair External Rotation 4- Good- Internal Rotation 4- Good- Comments Pain with flexion and ABD Left Flexion 4+ Good+ Extension 5 Normal Abduction (C5) 4+ Good+ External Rotation 4+ Good+ Internal Rotation 4+ Good+ Elbow/Forearm Strength Elbow and Forearm Manual Muscle Testing Right Flexion (C6) 5 Normal Extension (C7) 5 Normal Left Flexion (C6) 5 Normal Extension (C7) 5 Normal Hand Rough Planer Tender/Pinch Strength Hand Dominance Hand Dominance Right Hand Strength Right Comments WFL Left Comments WFL PT-OP-Q Treatments Start: 03/29/23 09:19 Freq: Status: Active Protocol: Document 04/11/23 11:31 [facility] (Rec: 04/11/23 12:19 [facility] [id number]) Cardio Equipment Upper Body Ergometer (UBE) Duration (Minutes) 5 Other 2.5 fwd, 2.5 bwd Therapeutic Exercises Supine Exercises Cervical rotation Supine Exercise Name verbal review Standing Exercises Y of the wall Side bilateral Equipment Used wall Reps/Minutes x8 Comments cues for UT overactivation bandwalking Side bilateral Resistance Lvl 1 Tb peach Equipment Used handrail Reps/Minutes x20ft ea Comments no pain reported Corner pec stretch Standing Exercise Name Arms in A, W and Y position Side bilateral Equipment Used corner>doorway Reps/Minutes 2x30 sec ea Comments pt cued to inch up from W to Y pain-free range gradually Ball on wall shldr flex Standing Exercise Name 1. shld flex 2. shld abd Side bilateral Equipment Used blue qatari ball Reps/Minutes 10x 5 sec hold Comments walk ball up wall scap retraction Standing Exercise Name reviewed w/ UBE Side bilateral Reps/Minutes 10 reps x5 Manual Therapy Treatment Soft Tissue Mobilization R shld Body Location pec, subclavius Mobilization Type Strumming,Sustained Pressure, Other Intensity/Depth Superficial Body Position Sidelying neck Body Location R>L UT, LS Mobilization Type Strumming,Sustained Pressure Intensity/Depth Superficial Body Position Hooklying PT-OP-T Assessment and Plan Start: 03/29/23 09:19 Freq: Status: Active Protocol: Document 04/11/23 11:31 [facility] (Rec: 04/11/23 12:19 [facility] [id number]) Physical Therapy Assessment Goals Seven Impairment Patient questionnaire Short Term Goal (STG) Pt's QuickDASH score to improve to 50% or better and NDI score to improve to 14/50 or better to demonstrate improving symptoms for an improved QOL. STG Duration 4 Fci Goal (LTG) Pt's QuickDASH score to improve to 30% or better and NDI score to improve to 4/50 or better to demonstrate improving symptoms for an improved QOL. LTG Duration 8 Six Impairment C spine AROM deficits Short Term Goal (STG) Pt's cervical spine left lateral flexion AROM to improve to 25 degrees or better to show improving ROM in order to improve ability to perform ADLs and IADLs. STG Duration 4 In Shop Service Technician Goal (LTG) Pt's cervical spine left lateral flexion AROM to improve to 30 degrees or better to show improving ROM in order to improve ability to perform ADLs and IADLs. Five Impairment C spine AROM deficits Short Term Goal (STG) Pt's cervical spine left rotation AROM to improve to 50 degrees or better to show improving ROM in order to improve ability to perform ADLs and IADLs. STG Duration 4 In Shop Service Technician Goal (LTG) Pt's cervical spine left rotation AROM to improve to 55 degrees or better to show improving ROM in order to improve ability to perform ADLs and IADLs. LTG Duration 8 Four Impairment Shoulder AROM deficits Short Term Goal (STG) Pt to improve shoulder functional IR AROM to L1 or better to show improving ROM in order to improve ability to perform ADLs and IADLs. STG Duration 4 Fci Goal (LTG) Pt to improve shoulder functional IR AROM to T10 or better to show improving ROM in order to improve ability to perform ADLs and IADLs. LTG Duration 8 Three Impairment Shoulder AROM deficits Short Term Goal (STG) Pt to improve shoulder functional ER AROM to C7 or better to show improving ROM in order to improve ability to perform ADLs and IADLs. STG Duration 4 Fci Goal (LTG) Pt to improve shoulder functional ER AROM to T3 or better to show improving ROM in order to improve ability to perform ADLs and IADLs. LTG Duration 8 Two Impairment Shoulder AROM deficits Short Term Goal (STG) Pt to improve shoulder ABD AROM to 110 degrees or better to show improving ROM in order to improve ability to perform ADLs and IADLs. STG Duration 4 Fci Goal (LTG) Pt to improve shoulder ABD AROM to 160 degrees or better to show improving ROM in order to improve ability to perform ADLs and IADLs. LTG Duration 8 One Impairment Shoulder AROM deficits Short Term Goal (STG) Pt to improve shoulder flexion AROM to 120 degrees or better to show improving ROM in order to improve ability to perform ADLs and IADLs. STG Duration 4 Fci Goal (LTG) Pt to improve shoulder flexion AROM to 150 degrees or better to show improving ROM in order to improve ability to perform ADLs and IADLs. LTG Duration 8 Assessment Summary Assessment Nighat is better able to perform open book stretch with positive feedback response with cues for UT overactivation, scapular setting, and spinal alignment. Pec stretch is modified from corner to doorway per pt's home, and pt is encouraged to increase range from W to Y gradual staying in pain-free range of motion. Educated on sleeping positions - HO given. She requires occasional cues for breathholding and posture but demonstrates improved self -awareness by end of treatment session. Palpable tension to R UT and LS decreases after manual therapy. Physical Therapy Plan Frequency and Duration Frequency of Treatment 2x/Week Duration of treatment (weeks) 8 Plan of Care Start Date 03/29/23 Plan of Care End Date 05/24/23 Therapeutic Interventions Therapeutic Interventions Home Exercise Program,Joint Mobilizations,Manual Therapy, Neuromuscular Re-education, Patient/Caregiver Education, Self-Care/Home Management,Soft Tissue Mobilization,Taping, Therapeutic Activities, Therapeutic Exercises Modalities Cold Pack/Ice Massage,Electric Stimulation,Hot Packs Next Visit Focus/Plan Next Note Type Treatment Note Next Visit Plan Add UE and cervical spine mobility exercises as tolerated, and low level periscapular strengthening exercises.
--- NOTE | 2023-04-25 10:21 | PT.OTN ---
Current Diagnoses Nondisplaced fracture of shaft of right clavicle, initial encounter for closed fracture (04/25/23) Physical Therapy Treatment Note PT-OP-A Visit Information Start: 03/29/23 09:19 Freq: Status: Active Protocol: Document 04/25/23 09:21 AB (Rec: 04/25/23 10:17 AB [id number]) Out-Patient Physical Therapy Visit Information Visit Information Visit Type Treatment Note Visit Start Time 09:18 Visit Stop Time 10:00 Total Visit Minutes 42 Visit Number 5 PT-OP-B Current Condition Start: 03/29/23 09:19 Freq: Status: Active Protocol: Document 03/29/23 09:22 AB (Rec: 03/29/23 12:03 AB [id number]) Current Condition History of Current Condition Onset Date 01/13/23 History of Current Condition Pt reports she passed out after giving blood and fell, which caused a right clavicular fracture. She was in a sling for about 2 weeks, then was instructed to do minimal activity, but avoid reaching up or lifting anything. Currently, she reports a tightness on the right side of her chest near her clavicle, pain/tension on the right side of her neck. She also states she started to get carpal tunnel from wearing the sling, as she sometimes gets pain down to her arm, and was given carpal tunnel exercises. The pt states she was instructed by her doctor to only perform stretching for her right arm. She is right hand dominant. Future Testing and Treatments Planned 04/05/23 ortho follow up Treatment Goals Patient/Caregiver Goals To be able to perform ADLs, IADLs and recreational activities Prior Functional Status Baseline Function- ADL's Independent Baseline Function- Mobility Independent Baseline Function- Work/School Retired Baseline Function- Recreation/Hobbies Gardening/yard work Current Functional Impairments (Reported) Functional Limitations- ADL's Difficulty grooming and getting dressed due to mobility deficits Functional Limitations- Work/School Retired Functional Limitations- Recreation/ Unable to perform gardening or Hobbies yardwork Functional Limitations- Other Unable to perform heavier IADLs PT-OP-C Subjective Start: 03/29/23 09:19 Freq: Status: Active Protocol: Document 04/25/23 09:21 AB (Rec: 04/25/23 10:17 AB [id number]) OP-PT Subjective Patient Comments Patient Comments Pt reports she has been able to do all her chores with only reports of tightness. She reports she is able to sleep through the night as well. Patient Reported Progress Improving PT-OP-J Posture/Palpation/Skin Start: 03/29/23 09:19 Freq: Status: Active Protocol: Document 03/29/23 09:22 AB (Rec: 03/29/23 12:03 AB [id number]) Posture Evaluation Position Sitting Shoulder Posture (L) Elevated PT-OP-K Range of Motion Start: 03/29/23 09:19 Freq: Status: Active Protocol: Document 03/29/23 09:22 AB (Rec: 03/29/23 12:03 AB [id number]) Cervical Spine Range of Motion Cervical Spine Active Degrees Testing Position Sitting Flexion 52 Extension 30 Rotation Left 46 Rotation Right 55 Lateral Flexion Left 20 Lateral Flexion Right 30 ROM Limitations Soft Tissue Tightness,Pain Comments mild pain with rotation and SB to left Shoulder Goniometric Range of Motion Shoulder Right Active Shoulder ROM WFL No Testing Position Sitting Flexion 108 Abduction 86 External Rotation at 0 degrees Abduction 60 Internal Rotation Behind Back (text) L4 Comments Functional ER: occiput Pain with all motions except ER at 0D of ABD Left Active Shoulder ROM WFL Yes Testing Position Sitting Flexion 147 Abduction 160 External Rotation at 0 degrees Abduction 65 Internal Rotation Behind Back (text) T10 Comments Functional ER: T3 PT-OP-M Strength Start: 03/29/23 09:19 Freq: Status: Active Protocol: Document 03/29/23 09:22 AB (Rec: 03/29/23 12:03 AB [id number]) Shoulder Strength Shoulder Manual Muscle Testing Right Flexion 3- Fair- Extension 4 Good Abduction (C5) 3 Fair External Rotation 4- Good- Internal Rotation 4- Good- Comments Pain with flexion and ABD Left Flexion 4+ Good+ Extension 5 Normal Abduction (C5) 4+ Good+ External Rotation 4+ Good+ Internal Rotation 4+ Good+ Elbow/Forearm Strength Elbow and Forearm Manual Muscle Testing Right Flexion (C6) 5 Normal Extension (C7) 5 Normal Left Flexion (C6) 5 Normal Extension (C7) 5 Normal Hand Wallpaper Remover Steam/Pinch Strength Hand Dominance Hand Dominance Right Hand Strength Right Comments WFL Left Comments WFL PT-OP-Q Treatments Start: 03/29/23 09:19 Freq: Status: Active Protocol: Document 04/25/23 09:21 AB (Rec: 04/25/23 10:17 AB [id number]) Cardio Equipment Upper Body Ergometer (UBE) Duration (Minutes) 5 Other 2.5 fwd, 2.5 bwd Therapeutic Exercises Sitting Exercises Prayer stretch Reps/Minutes 2x15 sec hold Comments sitting on stool UT, LS, scalene stretch Sitting Exercise Name UT stretch only Side right Reps/Minutes 1x15 Standing Exercises Front and lat raises Side bilateral Resistance 2# DBs front raises, 0# lat raises Reps/Minutes 2x10 TB shldr ext Side bilateral Resistance peach TB Reps/Minutes 2x10 TB IR and ER Standing Exercise Name IR and ER walk outs Side right Resistance peach TB Reps/Minutes 2x10 Comments VCs to keep UE in proper position TB rows Side bilateral Resistance [place] green TB Reps/Minutes 2x15 Comments cues for proper posture PT-OP-T Assessment and Plan Start: 03/29/23 09:19 Freq: Status: Active Protocol: Document 04/25/23 09:21 AB (Rec: 04/25/23 10:17 AB [id number]) Physical Therapy Assessment Goals Seven Impairment Patient questionnaire Short Term Goal (STG) Pt's QuickDASH score to improve to 50% or better and NDI score to improve to 14/50 or better to demonstrate improving symptoms for an improved QOL. STG Duration 4 Decating Machine Operator Goal (LTG) Pt's QuickDASH score to improve to 30% or better and NDI score to improve to 4/50 or better to demonstrate improving symptoms for an improved QOL. LTG Duration 8 Six Impairment C spine AROM deficits Short Term Goal (STG) Pt's cervical spine left lateral flexion AROM to improve to 25 degrees or better to show improving ROM in order to improve ability to perform ADLs and IADLs. STG Duration 4 Decating Machine Operator Goal (LTG) Pt's cervical spine left lateral flexion AROM to improve to 30 degrees or better to show improving ROM in order to improve ability to perform ADLs and IADLs. Five Impairment C spine AROM deficits Short Term Goal (STG) Pt's cervical spine left rotation AROM to improve to 50 degrees or better to show improving ROM in order to improve ability to perform ADLs and IADLs. STG Duration 4 Fdc Goal (LTG) Pt's cervical spine left rotation AROM to improve to 55 degrees or better to show improving ROM in order to improve ability to perform ADLs and IADLs. LTG Duration 8 Four Impairment Shoulder AROM deficits Short Term Goal (STG) Pt to improve shoulder functional IR AROM to L1 or better to show improving ROM in order to improve ability to perform ADLs and IADLs. STG Duration 4 Decating Machine Operator Goal (LTG) Pt to improve shoulder functional IR AROM to T10 or better to show improving ROM in order to improve ability to perform ADLs and IADLs. LTG Duration 8 Three Impairment Shoulder AROM deficits Short Term Goal (STG) Pt to improve shoulder functional ER AROM to C7 or better to show improving ROM in order to improve ability to perform ADLs and IADLs. STG Duration 4 Fdc Goal (LTG) Pt to improve shoulder functional ER AROM to T3 or better to show improving ROM in order to improve ability to perform ADLs and IADLs. LTG Duration 8 Two Impairment Shoulder AROM deficits Short Term Goal (STG) Pt to improve shoulder ABD AROM to 110 degrees or better to show improving ROM in order to improve ability to perform ADLs and IADLs. STG Duration 4 Fdc Goal (LTG) Pt to improve shoulder ABD AROM to 160 degrees or better to show improving ROM in order to improve ability to perform ADLs and IADLs. LTG Duration 8 One Impairment Shoulder AROM deficits Short Term Goal (STG) Pt to improve shoulder flexion AROM to 120 degrees or better to show improving ROM in order to improve ability to perform ADLs and IADLs. STG Duration 4 Decating Machine Operator Goal (LTG) Pt to improve shoulder flexion AROM to 150 degrees or better to show improving ROM in order to improve ability to perform ADLs and IADLs. LTG Duration 8 Assessment Summary Assessment A brief shoulder AROM screen revealed the pt's RUE AROM is nearly symmetrical to LUE AROM , with pt lacking less than 5D in flexion and ABD compared to LUE, and still lacking some mild functional IR. Based on her improvement, she was progressed today by adding strengthening exercises to periscapular and RTC musculature. The pt reported mild ache and muscule fatigue, but denied pain. Some of these exercises should be added to an updated HEP next visit if the pt reports good tolerance to today's session. The pt continues to benefit from skilled PT to improve her symptoms and return to PLOF. Physical Therapy Plan Frequency and Duration Frequency of Treatment 2x/Week Duration of treatment (weeks) 8 Plan of Care Start Date 03/29/23 Plan of Care End Date 05/24/23 Therapeutic Interventions Therapeutic Interventions Home Exercise Program,Joint Mobilizations,Manual Therapy, Neuromuscular Re-education, Patient/Caregiver Education, Self-Care/Home Management,Soft Tissue Mobilization,Taping, Therapeutic Activities, Therapeutic Exercises Modalities Cold Pack/Ice Massage,Electric Stimulation,Hot Packs Next Visit Focus/Plan Next Note Type Treatment Note Next Visit Plan Add therex performed today to HEP if pt reported good tolerance to today's session.
--- NOTE | 2023-04-28 15:44 | PT.OTN ---
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 She was in a sling for about 2 weeks, then was instructed to do minimal activity, but avoid reaching up or lifting anything. Currently, she reports a tightness on the right side of her chest near her clavicle, pain/tension on the right side of her neck. She also states she started to get carpal tunnel from wearing the sling, as she sometimes gets pain down to her arm, and was given carpal tunnel exercises. The pt states she was instructed by her doctor to only perform stretching for her right arm. She is right hand dominant. Future Testing and Treatments Planned 04/05/23 ortho follow up Treatment Goals Patient/Caregiver Goals To be able to perform ADLs, IADLs and recreational activities Prior Functional Status Baseline Function- ADL's Independent Baseline Function- Mobility Independent Baseline Function- Work/School Retired Baseline Function- Recreation/Hobbies Gardening/yard work Current Functional Impairments (Reported) Functional Limitations- ADL's Difficulty grooming and getting dressed due to mobility deficits Functional Limitations- Work/School Retired Functional Limitations- Recreation/ Unable to perform gardening or Hobbies yardwork Functional Limitations- Other Unable to perform heavier IADLs PT-OP-C Subjective Start: 03/29/23 09:19 Freq: Status: Active Protocol: Document 04/28/23 14:46 SW (Rec: 04/28/23 15:44 SW [id number]) OP-PT Subjective Patient Comments Patient Comments Pt reports she has tightness, and soreness two days after, maybe did a little more because how it was feeling. Pt was reaching up more, cleaning gutters and in cabinets. PT-OP-J Posture/Palpation/Skin Start: 03/29/23 09:19 Freq: Status: Active Protocol: Document 03/29/23 09:22 AB (Rec: 03/29/23 12:03 AB [id number]) Posture Evaluation Position Sitting Shoulder Posture (L) Elevated PT-OP-K Range of Motion Start: 03/29/23 09:19 Freq: Status: Active Protocol: Document 03/29/23 09:22 AB (Rec: 03/29/23 12:03 AB [id number]) Cervical Spine Range of Motion Cervical Spine Active Degrees Testing Position Sitting Flexion 52 Extension 30 Rotation Left 46 Rotation Right 55 Lateral Flexion Left 20 Lateral Flexion Right 30 ROM Limitations Soft Tissue Tightness,Pain Comments mild pain with rotation and SB to left Shoulder Goniometric Range of Motion Shoulder Right Active Shoulder ROM WFL No Testing Position Sitting Flexion 108 Abduction 86 External Rotation at 0 degrees Abduction 60 Internal Rotation Behind Back (text) L4 Comments Functional ER: occiput Pain with all motions except ER at 0D of ABD Left Active Shoulder ROM WFL Yes Testing Position Sitting Flexion 147 Abduction 160 External Rotation at 0 degrees Abduction 65 Internal Rotation Behind Back (text) T10 Comments Functional ER: T3 PT-OP-M Strength Start: 03/29/23 09:19 Freq: Status: Active Protocol: Document 03/29/23 09:22 AB (Rec: 03/29/23 12:03 AB [id number]) Shoulder Strength Shoulder Manual Muscle Testing Right Flexion 3- Fair- Extension 4 Good Abduction (C5) 3 Fair External Rotation 4- Good- Internal Rotation 4- Good- Comments Pain with flexion and ABD Left Flexion 4+ Good+ Extension 5 Normal Abduction (C5) 4+ Good+ External Rotation 4+ Good+ Internal Rotation 4+ Good+ Elbow/Forearm Strength Elbow and Forearm Manual Muscle Testing Right Flexion (C6) 5 Normal Extension (C7) 5 Normal Left Flexion (C6) 5 Normal Extension (C7) 5 Normal Hand Child Day Care Provider/Pinch Strength Hand Dominance Hand Dominance Right Hand Strength Right Comments WFL Left Comments WFL PT-OP-Q Treatments Start: 03/29/23 09:19 Freq: Status: Active Protocol: Document 04/28/23 14:46 (Rec: 04/28/23 15:44 [id number]) Cardio Equipment Upper Body Ergometer (UBE) Duration (Minutes) 5 Other 2.5 fwd, 2.5 bwd Therapeutic Exercises Sidelying Exercises open book Sidelying Exercise Name reviewed; modified hand on head Side right Reps/Minutes x10 reps Sitting Exercises Prayer stretch Reps/Minutes 2x15 sec hold Comments sitting on stool UT, LS, scalene stretch Sitting Exercise Name UT stretch only Side right Reps/Minutes 1x15 Standing Exercises Front and lat raises Side bilateral Resistance 2# DBs front raises, 0# lat raises Reps/Minutes 2x10 TB shldr ext Side bilateral Resistance peach TB Reps/Minutes 2x10 TB IR and ER Standing Exercise Name IR and ER walk outs Side right Resistance peach TB Reps/Minutes 2x10 Comments VCs to keep UE in proper position, extended time for education TB rows Side bilateral Resistance [place] TB Reps/Minutes 2x15 Comments cues for proper posture PT-OP-T Assessment and Plan Start: 03/29/23 09:19 Freq: Status: Active Protocol: Document 04/28/23 14:46 (Rec: 04/28/23 15:44 [id number]) Physical Therapy Assessment Goals Seven Impairment Patient questionnaire Short Term Goal (STG) Pt's QuickDASH score to improve to 50% or better and NDI score to improve to 14/50 or better to demonstrate improving symptoms for an improved QOL. STG Duration 4 Assisted Goal (LTG) Pt's QuickDASH score to improve to 30% or better and NDI score to improve to 4/50 or better to demonstrate improving symptoms for an improved QOL. LTG Duration 8 Six Impairment C spine AROM deficits Short Term Goal (STG) Pt's cervical spine left lateral flexion AROM to improve to 25 degrees or better to show improving ROM in order to improve ability to perform ADLs and IADLs. STG Duration 4 Assisted Goal (LTG) Pt's cervical spine left lateral flexion AROM to improve to 30 degrees or better to show improving ROM in order to improve ability to perform ADLs and IADLs. Five Impairment C spine AROM deficits Short Term Goal (STG) Pt's cervical spine left rotation AROM to improve to 50 degrees or better to show improving ROM in order to improve ability to perform ADLs and IADLs. STG Duration 4 Assisted Goal (LTG) Pt's cervical spine left rotation AROM to improve to 55 degrees or better to show improving ROM in order to improve ability to perform ADLs and IADLs. LTG Duration 8 Four Impairment Shoulder AROM deficits Short Term Goal (STG) Pt to improve shoulder functional IR AROM to L1 or better to show improving ROM in order to improve ability to perform ADLs and IADLs. STG Duration 4 Audio Specialist Goal (LTG) Pt to improve shoulder functional IR AROM to T10 or better to show improving ROM in order to improve ability to perform ADLs and IADLs. LTG Duration 8 Three Impairment Shoulder AROM deficits Short Term Goal (STG) Pt to improve shoulder functional ER AROM to C7 or better to show improving ROM in order to improve ability to perform ADLs and IADLs. STG Duration 4 Assisted Goal (LTG) Pt to improve shoulder functional ER AROM to T3 or better to show improving ROM in order to improve ability to perform ADLs and IADLs. LTG Duration 8 Two Impairment Shoulder AROM deficits Short Term Goal (STG) Pt to improve shoulder ABD AROM to 110 degrees or better to show improving ROM in order to improve ability to perform ADLs and IADLs. STG Duration 4 Audio Specialist Goal (LTG) Pt to improve shoulder ABD AROM to 160 degrees or better to show improving ROM in order to improve ability to perform ADLs and IADLs. LTG Duration 8 One Impairment Shoulder AROM deficits Short Term Goal (STG) Pt to improve shoulder flexion AROM to 120 degrees or better to show improving ROM in order to improve ability to perform ADLs and IADLs. STG Duration 4 Assisted Goal (LTG) Pt to improve shoulder flexion AROM to 150 degrees or better to show improving ROM in order to improve ability to perform ADLs and IADLs. LTG Duration 8 Assessment Summary Assessment Pt reports increased soreness and discomfort but was unsure whether it was from the strenthening exercises started last session. Reviewed last sessions progressions and instructed patient to take note of symptoms throughout the next few days. Did not add last sessions ex to HEP d/t pt increased symptoms. Plan to get a better assessment of tolerance next session and review exercises for form prior to issueing; pt required frequent verbal cues for form and visual cues for activation of the correct muscles. Physical Therapy Plan Frequency and Duration Frequency of Treatment 2x/Week Duration of treatment (weeks) 8 Plan of Care Start Date 03/29/23 Plan of Care End Date 05/24/23 Therapeutic Interventions Therapeutic Interventions Home Exercise Program,Joint Mobilizations,Manual Therapy, Neuromuscular Re-education, Patient/Caregiver Education, Self-Care/Home Management,Soft Tissue Mobilization,Taping, Therapeutic Activities, Therapeutic Exercises Modalities Cold Pack/Ice Massage,Electric Stimulation,Hot Packs Next Visit Focus/Plan Next Note Type Treatment Note Next Visit Plan Add therex performed today to HEP if pt reported good tolerance to today's session.
--- NOTE | 2023-05-02 10:25 | PT.OTN ---
Current Diagnoses Nondisplaced fracture of shaft of right clavicle, initial encounter for closed fracture (05/02/23) Physical Therapy Treatment Note PT-OP-A Visit Information Start: 03/29/23 09:19 Freq: Status: Active Protocol: Document 05/02/23 09:21 AB (Rec: 05/02/23 10:25 AB [id number]) Out-Patient Physical Therapy Visit Information Visit Information Visit Type Treatment Note Visit Start Time 09:17 Visit Stop Time 10:00 Total Visit Minutes 42 Visit Number 7 Evaluation Information Evaluation Date 03/29/23 PT-OP-B Current Condition Start: 03/29/23 09:19 Freq: Status: Active Protocol: Document 03/29/23 09:22 AB (Rec: 03/29/23 12:03 AB [id number]) Current Condition History of Current Condition Onset Date 01/13/23 History of Current Condition Pt reports she passed out after giving blood and fell, which caused a right clavicular fracture. She was in a sling for about 2 weeks, then was instructed to do minimal activity, but avoid reaching up or lifting anything. Currently, she reports a tightness on the right side of her chest near her clavicle, pain/tension on the right side of her neck. She also states she started to get carpal tunnel from wearing the sling, as she sometimes gets pain down to her arm, and was given carpal tunnel exercises. The pt states she was instructed by her doctor to only perform stretching for her right arm. She is right hand dominant. Future Testing and Treatments Planned 04/05/23 ortho follow up Treatment Goals Patient/Caregiver Goals To be able to perform ADLs, IADLs and recreational activities Prior Functional Status Baseline Function- ADL's Independent Baseline Function- Mobility Independent Baseline Function- Work/School Retired Baseline Function- Recreation/Hobbies Gardening/yard work Current Functional Impairments (Reported) Functional Limitations- ADL's Difficulty grooming and getting dressed due to mobility deficits Functional Limitations- Work/School Retired Functional Limitations- Recreation/ Unable to perform gardening or Hobbies yardwork Functional Limitations- Other Unable to perform heavier IADLs PT-OP-C Subjective Start: 03/29/23 09:19 Freq: Status: Active Protocol: Document 05/02/23 09:21 AB (Rec: 05/02/23 10:25 AB [id number]) OP-PT Subjective Patient Comments Patient Comments The pt reports she felt sore the day after her last session , but this resolved after a day with application of ice. Otherwise, she feels like she is progressing well. PT-OP-J Posture/Palpation/Skin Start: 03/29/23 09:19 Freq: Status: Active Protocol: Document 03/29/23 09:22 AB (Rec: 03/29/23 12:03 AB [id number]) Posture Evaluation Position Sitting Shoulder Posture (L) Elevated PT-OP-K Range of Motion Start: 03/29/23 09:19 Freq: Status: Active Protocol: Document 03/29/23 09:22 AB (Rec: 03/29/23 12:03 AB [id number]) Cervical Spine Range of Motion Cervical Spine Active Degrees Testing Position Sitting Flexion 52 Extension 30 Rotation Left 46 Rotation Right 55 Lateral Flexion Left 20 Lateral Flexion Right 30 ROM Limitations Soft Tissue Tightness,Pain Comments mild pain with rotation and SB to left Shoulder Goniometric Range of Motion Shoulder Right Active Shoulder ROM WFL No Testing Position Sitting Flexion 108 Abduction 86 External Rotation at 0 degrees Abduction 60 Internal Rotation Behind Back (text) L4 Comments Functional ER: occiput Pain with all motions except ER at 0D of ABD Left Active Shoulder ROM WFL Yes Testing Position Sitting Flexion 147 Abduction 160 External Rotation at 0 degrees Abduction 65 Internal Rotation Behind Back (text) T10 Comments Functional ER: T3 PT-OP-M Strength Start: 03/29/23 09:19 Freq: Status: Active Protocol: Document 03/29/23 09:22 AB (Rec: 03/29/23 12:03 AB [id number]) Shoulder Strength Shoulder Manual Muscle Testing Right Flexion 3- Fair- Extension 4 Good Abduction (C5) 3 Fair External Rotation 4- Good- Internal Rotation 4- Good- Comments Pain with flexion and ABD Left Flexion 4+ Good+ Extension 5 Normal Abduction (C5) 4+ Good+ External Rotation 4+ Good+ Internal Rotation 4+ Good+ Elbow/Forearm Strength Elbow and Forearm Manual Muscle Testing Right Flexion (C6) 5 Normal Extension (C7) 5 Normal Left Flexion (C6) 5 Normal Extension (C7) 5 Normal Hand Board Certified Family Physician/Pinch Strength Hand Dominance Hand Dominance Right Hand Strength Right Comments WFL Left Comments WFL PT-OP-Q Treatments Start: 03/29/23 09:19 Freq: Status: Active Protocol: Document 05/02/23 09:21 AB (Rec: 05/02/23 10:25 AB [id number]) Cardio Equipment Upper Body Ergometer (UBE) Duration (Minutes) 5 Other 2.5 fwd, 2.5 bwd Therapeutic Exercises Standing Exercises Cheerleaders Standing Exercise Name Horiz. ABD only (for today) Side bilateral Resistance peach TB Reps/Minutes 1x5 Comments add diagonals next visit Front and lat raises Side bilateral Resistance 1# DBs front raises, 0# lat raises Reps/Minutes 2x10 TB shldr ext Side bilateral Resistance peach TB Reps/Minutes 2x10 TB IR and ER Standing Exercise Name IR and ER walk outs Side right Resistance peach TB Reps/Minutes 2x10 Comments VCs to keep UE in proper position, extended time for education TB rows Side bilateral Resistance [place] green TB Reps/Minutes 2x15 Comments cues for proper posture Manual Therapy Treatment Taping 1 Body Location right pec major Treatment Focus improve swelling Type of Tape Kinesio Tape Skin Inspection No abnormalities noted Comments 4 tape cut into 4 strips on one end (end with 4 strips closer to midline and intact end towards shoulder) PT-OP-T Assessment and Plan Start: 03/29/23 09:19 Freq: Status: Active Protocol: Document 05/02/23 09:21 AB (Rec: 05/02/23 10:25 AB [id number]) Physical Therapy Assessment Goals Seven Impairment Patient questionnaire Short Term Goal (STG) Pt's QuickDASH score to improve to 50% or better and NDI score to improve to 14/50 or better to demonstrate improving symptoms for an improved QOL. STG Duration 4 Kaiako Kura [place] Goal (LTG) Pt's QuickDASH score to improve to 30% or better and NDI score to improve to 4/50 or better to demonstrate improving symptoms for an improved QOL. LTG Duration 8 Six Impairment C spine AROM deficits Short Term Goal (STG) Pt's cervical spine left lateral flexion AROM to improve to 25 degrees or better to show improving ROM in order to improve ability to perform ADLs and IADLs. STG Duration 4 Nursing Home Goal (LTG) Pt's cervical spine left lateral flexion AROM to improve to 30 degrees or better to show improving ROM in order to improve ability to perform ADLs and IADLs. Five Impairment C spine AROM deficits Short Term Goal (STG) Pt's cervical spine left rotation AROM to improve to 50 degrees or better to show improving ROM in order to improve ability to perform ADLs and IADLs. STG Duration 4 Kaiako Kura [place] Goal (LTG) Pt's cervical spine left rotation AROM to improve to 55 degrees or better to show improving ROM in order to improve ability to perform ADLs and IADLs. LTG Duration 8 Four Impairment Shoulder AROM deficits Short Term Goal (STG) Pt to improve shoulder functional IR AROM to L1 or better to show improving ROM in order to improve ability to perform ADLs and IADLs. STG Duration 4 Kaiako Kura [place] Goal (LTG) Pt to improve shoulder functional IR AROM to T10 or better to show improving ROM in order to improve ability to perform ADLs and IADLs. LTG Duration 8 Three Impairment Shoulder AROM deficits Short Term Goal (STG) Pt to improve shoulder functional ER AROM to C7 or better to show improving ROM in order to improve ability to perform ADLs and IADLs. STG Duration 4 Nursing Home Goal (LTG) Pt to improve shoulder functional ER AROM to T3 or better to show improving ROM in order to improve ability to perform ADLs and IADLs. LTG Duration 8 Two Impairment Shoulder AROM deficits Short Term Goal (STG) Pt to improve shoulder ABD AROM to 110 degrees or better to show improving ROM in order to improve ability to perform ADLs and IADLs. STG Duration 4 Nursing Home Goal (LTG) Pt to improve shoulder ABD AROM to 160 degrees or better to show improving ROM in order to improve ability to perform ADLs and IADLs. LTG Duration 8 One Impairment Shoulder AROM deficits Short Term Goal (STG) Pt to improve shoulder flexion AROM to 120 degrees or better to show improving ROM in order to improve ability to perform ADLs and IADLs. STG Duration 4 Kaiako Kura [place] Goal (LTG) Pt to improve shoulder flexion AROM to 150 degrees or better to show improving ROM in order to improve ability to perform ADLs and IADLs. LTG Duration 8 Assessment Summary Assessment The pt's HEP was updated with additional strength exercises that have been performed over the last 2 sessions. The pt reports some muscles fatigue and tightness over her pec major, but denies pain. She continues to require verbal cues to perform exercises with good posture. KinesioTape was applied to help improve swelling, as described above, with education to the pt regarding it's use and application. The pt would benefit from continued progression next session as tolerated. Physical Therapy Plan Next Visit Focus/Plan Next Note Type Treatment Note Next Visit Plan Review tolerance to updated HEP.
--- NOTE | 2023-05-05 14:30 | PT.OTN ---
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 She was in a sling for about 2 weeks, then was instructed to do minimal activity, but avoid reaching up or lifting anything. Currently, she reports a tightness on the right side of her chest near her clavicle, pain/tension on the right side of her neck. She also states she started to get carpal tunnel from wearing the sling, as she sometimes gets pain down to her arm, and was given carpal tunnel exercises. The pt states she was instructed by her doctor to only perform stretching for her right arm. She is right hand dominant. Future Testing and Treatments Planned 04/05/23 ortho follow up Treatment Goals Patient/Caregiver Goals To be able to perform ADLs, IADLs and recreational activities Prior Functional Status Baseline Function- ADL's Independent Baseline Function- Mobility Independent Baseline Function- Work/School Retired Baseline Function- Recreation/Hobbies Gardening/yard work Current Functional Impairments (Reported) Functional Limitations- ADL's Difficulty grooming and getting dressed due to mobility deficits Functional Limitations- Work/School Retired Functional Limitations- Recreation/ Unable to perform gardening or Hobbies yardwork Functional Limitations- Other Unable to perform heavier IADLs PT-OP-C Subjective Start: 03/29/23 09:19 Freq: Status: Active Protocol: Document 05/05/23 09:13 SW (Rec: 05/05/23 09:58 SW [id number]) OP-PT Subjective Patient Comments Patient Comments Pt reports the tape helped. Pt has been using real time, which has seemed to help as well. PT-OP-J Posture/Palpation/Skin Start: 03/29/23 09:19 Freq: Status: Active Protocol: Document 03/29/23 09:22 AB (Rec: 03/29/23 12:03 AB [id number]) Posture Evaluation Position Sitting Shoulder Posture (L) Elevated PT-OP-K Range of Motion Start: 03/29/23 09:19 Freq: Status: Active Protocol: Document 03/29/23 09:22 AB (Rec: 03/29/23 12:03 AB [id number]) Cervical Spine Range of Motion Cervical Spine Active Degrees Testing Position Sitting Flexion 52 Extension 30 Rotation Left 46 Rotation Right 55 Lateral Flexion Left 20 Lateral Flexion Right 30 ROM Limitations Soft Tissue Tightness,Pain Comments mild pain with rotation and SB to left Shoulder Goniometric Range of Motion Shoulder Right Active Shoulder ROM WFL No Testing Position Sitting Flexion 108 Abduction 86 External Rotation at 0 degrees Abduction 60 Internal Rotation Behind Back (text) L4 Comments Functional ER: occiput Pain with all motions except ER at 0D of ABD Left Active Shoulder ROM WFL Yes Testing Position Sitting Flexion 147 Abduction 160 External Rotation at 0 degrees Abduction 65 Internal Rotation Behind Back (text) T10 Comments Functional ER: T3 PT-OP-M Strength Start: 03/29/23 09:19 Freq: Status: Active Protocol: Document 03/29/23 09:22 AB (Rec: 03/29/23 12:03 AB [id number]) Shoulder Strength Shoulder Manual Muscle Testing Right Flexion 3- Fair- Extension 4 Good Abduction (C5) 3 Fair External Rotation 4- Good- Internal Rotation 4- Good- Comments Pain with flexion and ABD Left Flexion 4+ Good+ Extension 5 Normal Abduction (C5) 4+ Good+ External Rotation 4+ Good+ Internal Rotation 4+ Good+ Elbow/Forearm Strength Elbow and Forearm Manual Muscle Testing Right Flexion (C6) 5 Normal Extension (C7) 5 Normal Left Flexion (C6) 5 Normal Extension (C7) 5 Normal Hand Power Cutting Machine Operator/Pinch Strength Hand Dominance Hand Dominance Right Hand Strength Right Comments WFL Left Comments WFL PT-OP-Q Treatments Start: 03/29/23 09:19 Freq: Status: Active Protocol: Document 05/05/23 09:13 SW (Rec: 05/05/23 09:58 SW [id number]) Cardio Equipment Upper Body Ergometer (UBE) Duration (Minutes) 5 Other 2.5 fwd, 2.5 bwd Therapeutic Exercises Standing Exercises Pulleys Standing Exercise Name Shldr flex/abd stretch Equipment Used Pulleys Reps/Minutes 2x30 each Comments cues for stretch w/out increase in pn Cheerleaders Standing Exercise Name Horiz. ABD, Diagonals Side bilateral Resistance peach TB Reps/Minutes 1x10 Front and lat raises Side bilateral Resistance 1# DBs front raises, 0# lat raises Reps/Minutes 2x10 TB shldr ext Side bilateral Resistance peach TB Reps/Minutes 2x10 TB IR and ER Standing Exercise Name IR and ER walk outs Side right Resistance peach TB Reps/Minutes 2x10 Comments VCs to keep UE in proper position, extended time for education TB rows Side bilateral Resistance kaguyuk green TB Reps/Minutes 2x15 Comments cues for proper posture PT-OP-T Assessment and Plan Start: 03/29/23 09:19 Freq: Status: Active Protocol: Document 05/05/23 09:13 (Rec: 05/05/23 09:58 [id number]) Physical Therapy Assessment Goals Seven Impairment Patient questionnaire Short Term Goal (STG) Pt's QuickDASH score to improve to 50% or better and NDI score to improve to 14/50 or better to demonstrate improving symptoms for an improved QOL. STG Duration 4 Care Home Goal (LTG) Pt's QuickDASH score to improve to 30% or better and NDI score to improve to 4/50 or better to demonstrate improving symptoms for an improved QOL. LTG Duration 8 Six Impairment C spine AROM deficits Short Term Goal (STG) Pt's cervical spine left lateral flexion AROM to improve to 25 degrees or better to show improving ROM in order to improve ability to perform ADLs and IADLs. STG Duration 4 Care Home Goal (LTG) Pt's cervical spine left lateral flexion AROM to improve to 30 degrees or better to show improving ROM in order to improve ability to perform ADLs and IADLs. Five Impairment C spine AROM deficits Short Term Goal (STG) Pt's cervical spine left rotation AROM to improve to 50 degrees or better to show improving ROM in order to improve ability to perform ADLs and IADLs. STG Duration 4 Molder Foam Rubber Goal (LTG) Pt's cervical spine left rotation AROM to improve to 55 degrees or better to show improving ROM in order to improve ability to perform ADLs and IADLs. LTG Duration 8 Four Impairment Shoulder AROM deficits Short Term Goal (STG) Pt to improve shoulder functional IR AROM to L1 or better to show improving ROM in order to improve ability to perform ADLs and IADLs. STG Duration 4 Molder Foam Rubber Goal (LTG) Pt to improve shoulder functional IR AROM to T10 or better to show improving ROM in order to improve ability to perform ADLs and IADLs. LTG Duration 8 Three Impairment Shoulder AROM deficits Short Term Goal (STG) Pt to improve shoulder functional ER AROM to C7 or better to show improving ROM in order to improve ability to perform ADLs and IADLs. STG Duration 4 Care Home Goal (LTG) Pt to improve shoulder functional ER AROM to T3 or better to show improving ROM in order to improve ability to perform ADLs and IADLs. LTG Duration 8 Two Impairment Shoulder AROM deficits Short Term Goal (STG) Pt to improve shoulder ABD AROM to 110 degrees or better to show improving ROM in order to improve ability to perform ADLs and IADLs. STG Duration 4 Molder Foam Rubber Goal (LTG) Pt to improve shoulder ABD AROM to 160 degrees or better to show improving ROM in order to improve ability to perform ADLs and IADLs. LTG Duration 8 One Impairment Shoulder AROM deficits Short Term Goal (STG) Pt to improve shoulder flexion AROM to 120 degrees or better to show improving ROM in order to improve ability to perform ADLs and IADLs. STG Duration 4 Molder Foam Rubber Goal (LTG) Pt to improve shoulder flexion AROM to 150 degrees or better to show improving ROM in order to improve ability to perform ADLs and IADLs. LTG Duration 8 Assessment Summary Assessment Progressed pt with the addition of diagonals, widened dietary cook on TB for appropriate level of resistance, pt challenged, felt correct muscles working, denied pain. Added pulleys today for R shldr stretch to work toward ROM goal, minimal pn with abd, instructed in postural adjustments and to not push into pain. Physical Therapy Plan Frequency and Duration Frequency of Treatment 2x/Week Duration of treatment (weeks) 8 Plan of Care Start Date 03/29/23 Plan of Care End Date 05/24/23 Therapeutic Interventions Therapeutic Interventions Home Exercise Program,Joint Mobilizations,Manual Therapy, Neuromuscular Re-education, Patient/Caregiver Education, Self-Care/Home Management,Soft Tissue Mobilization,Taping, Therapeutic Activities, Therapeutic Exercises Modalities Cold Pack/Ice Massage,Electric Stimulation,Hot Packs Next Visit Focus/Plan Next Note Type Treatment Note Next Visit Plan Review tolerance to updated HEP.
--- NOTE | 2023-05-09 11:31 | PT.OTN ---
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 She was in a sling for about 2 weeks, then was instructed to do minimal activity, but avoid reaching up or lifting anything. Currently, she reports a tightness on the right side of her chest near her clavicle, pain/tension on the right side of her neck. She also states she started to get carpal tunnel from wearing the sling, as she sometimes gets pain down to her arm, and was given carpal tunnel exercises. The pt states she was instructed by her doctor to only perform stretching for her right arm. She is right hand dominant. Future Testing and Treatments Planned 04/05/23 ortho follow up Treatment Goals Patient/Caregiver Goals To be able to perform ADLs, IADLs and recreational activities Prior Functional Status Baseline Function- ADL's Independent Baseline Function- Mobility Independent Baseline Function- Work/School Retired Baseline Function- Recreation/Hobbies Gardening/yard work Current Functional Impairments (Reported) Functional Limitations- ADL's Difficulty grooming and getting dressed due to mobility deficits Functional Limitations- Work/School Retired Functional Limitations- Recreation/ Unable to perform gardening or Hobbies yardwork Functional Limitations- Other Unable to perform heavier IADLs PT-OP-C Subjective Start: 03/29/23 09:19 Freq: Status: Active Protocol: Document 05/09/23 10:37 NBM (Rec: 05/09/23 11:28 NBM [id number]) OP-PT Subjective Patient Comments Patient Comments Nighat reports she felt good after last visit but her shoulder is tight. She's been doing her ex's. Her grandkids visited. PT-OP-J Posture/Palpation/Skin Start: 03/29/23 09:19 Freq: Status: Active Protocol: Document 03/29/23 09:22 AB (Rec: 03/29/23 12:03 AB [id number]) Posture Evaluation Position Sitting Shoulder Posture (L) Elevated PT-OP-K Range of Motion Start: 03/29/23 09:19 Freq: Status: Active Protocol: Document 03/29/23 09:22 AB (Rec: 03/29/23 12:03 AB [id number]) Cervical Spine Range of Motion Cervical Spine Active Degrees Testing Position Sitting Flexion 52 Extension 30 Rotation Left 46 Rotation Right 55 Lateral Flexion Left 20 Lateral Flexion Right 30 ROM Limitations Soft Tissue Tightness,Pain Comments mild pain with rotation and SB to left Shoulder Goniometric Range of Motion Shoulder Right Active Shoulder ROM WFL No Testing Position Sitting Flexion 108 Abduction 86 External Rotation at 0 degrees Abduction 60 Internal Rotation Behind Back (text) L4 Comments Functional ER: occiput Pain with all motions except ER at 0D of ABD Left Active Shoulder ROM WFL Yes Testing Position Sitting Flexion 147 Abduction 160 External Rotation at 0 degrees Abduction 65 Internal Rotation Behind Back (text) T10 Comments Functional ER: T3 PT-OP-M Strength Start: 03/29/23 09:19 Freq: Status: Active Protocol: Document 03/29/23 09:22 AB (Rec: 03/29/23 12:03 AB [id number]) Shoulder Strength Shoulder Manual Muscle Testing Right Flexion 3- Fair- Extension 4 Good Abduction (C5) 3 Fair External Rotation 4- Good- Internal Rotation 4- Good- Comments Pain with flexion and ABD Left Flexion 4+ Good+ Extension 5 Normal Abduction (C5) 4+ Good+ External Rotation 4+ Good+ Internal Rotation 4+ Good+ Elbow/Forearm Strength Elbow and Forearm Manual Muscle Testing Right Flexion (C6) 5 Normal Extension (C7) 5 Normal Left Flexion (C6) 5 Normal Extension (C7) 5 Normal Hand Fish And Wildlife Warden/Pinch Strength Hand Dominance Hand Dominance Right Hand Strength Right Comments WFL Left Comments WFL PT-OP-Q Treatments Start: 03/29/23 09:19 Freq: Status: Active Protocol: Document 05/09/23 10:37 NBM (Rec: 05/09/23 11:28 [facility] [id number]) Cardio Equipment Upper Body Ergometer (UBE) Duration (Minutes) 6 Height 2.5 Other 3' fwd, 3' bwd Therapeutic Exercises Sitting Exercises UT, LS, scalene stretch Sitting Exercise Name UT/LS Side right Reps/Minutes 2 x 30s Comments chin tuck, w/ chair hold for R shoulder stabilization Standing Exercises Pulleys Standing Exercise Name Shldr flex/abd stretch Resistance sitting Equipment Used Pulleys Reps/Minutes 3x30 each Comments cues for stretch w/out increase in pn Front and lat raises Side bilateral Resistance 1# DBs front raises, 0#>1# lat raises Equipment Used mirror Reps/Minutes 2x10 Comments initial cues for R UT overactivation and chin tuck TB shldr ext Side bilateral Resistance peach TB Reps/Minutes 2x10 Corner pec stretch Standing Exercise Name Arms in A, W and Y position Side bilateral Equipment Used doorway Reps/Minutes 2x30 sec ea Comments pt cues for R justa UT overactivation TB rows Side bilateral Resistance hoh green TB Reps/Minutes 2x15 Comments cues for proper posture PT-OP-T Assessment and Plan Start: 03/29/23 09:19 Freq: Status: Active Protocol: Document 05/09/23 10:37 [facility] (Rec: 05/09/23 11:28 [facility] [id number]) Physical Therapy Assessment Goals Seven Impairment Patient questionnaire Short Term Goal (STG) Pt's QuickDASH score to improve to 50% or better and NDI score to improve to 14/50 or better to demonstrate improving symptoms for an improved QOL. STG Duration 4 Skilled Nursing Goal (LTG) Pt's QuickDASH score to improve to 30% or better and NDI score to improve to 4/50 or better to demonstrate improving symptoms for an improved QOL. LTG Duration 8 Six Impairment C spine AROM deficits Short Term Goal (STG) Pt's cervical spine left lateral flexion AROM to improve to 25 degrees or better to show improving ROM in order to improve ability to perform ADLs and IADLs. STG Duration 4 Skilled Nursing Goal (LTG) Pt's cervical spine left lateral flexion AROM to improve to 30 degrees or better to show improving ROM in order to improve ability to perform ADLs and IADLs. Five Impairment C spine AROM deficits Short Term Goal (STG) Pt's cervical spine left rotation AROM to improve to 50 degrees or better to show improving ROM in order to improve ability to perform ADLs and IADLs. STG Duration 4 Skilled Nursing Goal (LTG) Pt's cervical spine left rotation AROM to improve to 55 degrees or better to show improving ROM in order to improve ability to perform ADLs and IADLs. LTG Duration 8 Four Impairment Shoulder AROM deficits Short Term Goal (STG) Pt to improve shoulder functional IR AROM to L1 or better to show improving ROM in order to improve ability to perform ADLs and IADLs. STG Duration 4 Finger Lift Operator Goal (LTG) Pt to improve shoulder functional IR AROM to T10 or better to show improving ROM in order to improve ability to perform ADLs and IADLs. LTG Duration 8 Three Impairment Shoulder AROM deficits Short Term Goal (STG) Pt to improve shoulder functional ER AROM to C7 or better to show improving ROM in order to improve ability to perform ADLs and IADLs. STG Duration 4 Finger Lift Operator Goal (LTG) Pt to improve shoulder functional ER AROM to T3 or better to show improving ROM in order to improve ability to perform ADLs and IADLs. LTG Duration 8 Two Impairment Shoulder AROM deficits Short Term Goal (STG) Pt to improve shoulder ABD AROM to 110 degrees or better to show improving ROM in order to improve ability to perform ADLs and IADLs. STG Duration 4 Skilled Nursing Goal (LTG) Pt to improve shoulder ABD AROM to 160 degrees or better to show improving ROM in order to improve ability to perform ADLs and IADLs. LTG Duration 8 One Impairment Shoulder AROM deficits Short Term Goal (STG) Pt to improve shoulder flexion AROM to 120 degrees or better to show improving ROM in order to improve ability to perform ADLs and IADLs. STG Duration 4 Skilled Nursing Goal (LTG) Pt to improve shoulder flexion AROM to 150 degrees or better to show improving ROM in order to improve ability to perform ADLs and IADLs. LTG Duration 8 Assessment Summary Assessment Treatment focus on stretching, posture and UE strengthening. Pt requires cues with cervical stretches for chin tuck and R shoulder stabilization with positive feedback response. She requires cues for staying in pain-free ROM with AAROM on pulleys and consistent cues for R UT overactivation and eccentric control throughout treatment session. Pt's self- awareness and form for both improves with cueing and repetition and pt reports no pain, including w/ addition of 1# weights w/ lateral shoulder raises in mirror. Physical Therapy Plan Frequency and Duration Frequency of Treatment 2x/Week Duration of treatment (weeks) 8 Plan of Care Start Date 03/29/23 Plan of Care End Date 05/24/23 Therapeutic Interventions Therapeutic Interventions Home Exercise Program,Joint Mobilizations,Manual Therapy, Neuromuscular Re-education, Patient/Caregiver Education, Self-Care/Home Management,Soft Tissue Mobilization,Taping, Therapeutic Activities, Therapeutic Exercises Modalities Cold Pack/Ice Massage,Electric Stimulation,Hot Packs Next Visit Focus/Plan Next Note Type Treatment Note Next Visit Plan Review tolerance to updated HEP.
--- NOTE | 2023-05-12 12:44 | PT.OTN ---
Current Diagnoses Nondisplaced fracture of shaft of right clavicle, initial encounter for closed fracture (05/12/23) Physical Therapy Treatment Note PT-OP-A Visit Information Start: 03/29/23 09:19 Freq: Status: Active Protocol: Document 05/12/23 09:12 SW (Rec: 05/12/23 10:00 SW [id number]) Out-Patient Physical Therapy Visit Information Visit Information Visit Type Treatment Note Visit Start Time 09:15 Visit Stop Time 09:55 Total Visit Minutes 40 Visit Number 10 Number of COMPLIANCE PROJECT MANAGER Visits 3 Precautions Precautions Osteopenia PT-OP-B Current Condition Start: 03/29/23 09:19 Freq: Status: Active Protocol: Document 03/29/23 09:22 AB (Rec: 03/29/23 12:03 AB [id number]) Current Condition History of Current Condition Onset Date 01/13/23 History of Current Condition Pt reports she passed out after giving blood and fell, which caused a right clavicular fracture. She was in a sling for about 2 weeks, then was instructed to do minimal activity, but avoid reaching up or lifting anything. Currently, she reports a tightness on the right side of her chest near her clavicle, pain/tension on the right side of her neck. She also states she started to get carpal tunnel from wearing the sling, as she sometimes gets pain down to her arm, and was given carpal tunnel exercises. The pt states she was instructed by her doctor to only perform stretching for her right arm. She is right hand dominant. Future Testing and Treatments Planned 04/05/23 ortho follow up Treatment Goals Patient/Caregiver Goals To be able to perform ADLs, IADLs and recreational activities Prior Functional Status Baseline Function- ADL's Independent Baseline Function- Mobility Independent Baseline Function- Work/School Retired Baseline Function- Recreation/Hobbies Gardening/yard work Current Functional Impairments (Reported) Functional Limitations- ADL's Difficulty grooming and getting dressed due to mobility deficits Functional Limitations- Work/School Retired Functional Limitations- Recreation/ Unable to perform gardening or Hobbies yardwork Functional Limitations- Other Unable to perform heavier IADLs PT-OP-C Subjective Start: 03/29/23 09:19 Freq: Status: Active Protocol: Document 05/12/23 09:12 SW (Rec: 05/12/23 10:00 SW [id number]) OP-PT Subjective Patient Comments Patient Comments Pt reports she feels like it is getting better. Pt feels like she notices the pain more when driving. PT-OP-J Posture/Palpation/Skin Start: 03/29/23 09:19 Freq: Status: Active Protocol: Document 03/29/23 09:22 AB (Rec: 03/29/23 12:03 AB [id number]) Posture Evaluation Position Sitting Shoulder Posture (L) Elevated PT-OP-K Range of Motion Start: 03/29/23 09:19 Freq: Status: Active Protocol: Document 03/29/23 09:22 AB (Rec: 03/29/23 12:03 AB [id number]) Cervical Spine Range of Motion Cervical Spine Active Degrees Testing Position Sitting Flexion 52 Extension 30 Rotation Left 46 Rotation Right 55 Lateral Flexion Left 20 Lateral Flexion Right 30 ROM Limitations Soft Tissue Tightness,Pain Comments mild pain with rotation and SB to left Shoulder Goniometric Range of Motion Shoulder Right Active Shoulder ROM WFL No Testing Position Sitting Flexion 108 Abduction 86 External Rotation at 0 degrees Abduction 60 Internal Rotation Behind Back (text) L4 Comments Functional ER: occiput Pain with all motions except ER at 0D of ABD Left Active Shoulder ROM WFL Yes Testing Position Sitting Flexion 147 Abduction 160 External Rotation at 0 degrees Abduction 65 Internal Rotation Behind Back (text) T10 Comments Functional ER: T3 PT-OP-M Strength Start: 03/29/23 09:19 Freq: Status: Active Protocol: Document 03/29/23 09:22 AB (Rec: 03/29/23 12:03 AB [id number]) Shoulder Strength Shoulder Manual Muscle Testing Right Flexion 3- Fair- Extension 4 Good Abduction (C5) 3 Fair External Rotation 4- Good- Internal Rotation 4- Good- Comments Pain with flexion and ABD Left Flexion 4+ Good+ Extension 5 Normal Abduction (C5) 4+ Good+ External Rotation 4+ Good+ Internal Rotation 4+ Good+ Elbow/Forearm Strength Elbow and Forearm Manual Muscle Testing Right Flexion (C6) 5 Normal Extension (C7) 5 Normal Left Flexion (C6) 5 Normal Extension (C7) 5 Normal Hand Nut Grader/Pinch Strength Hand Dominance Hand Dominance Right Hand Strength Right Comments WFL Left Comments WFL PT-OP-Q Treatments Start: 03/29/23 09:19 Freq: Status: Active Protocol: Document 05/12/23 09:12 SW (Rec: 05/12/23 10:00 SW [id number]) Cardio Equipment Upper Body Ergometer (UBE) Duration (Minutes) 6 Height 2.5 Other 3' fwd, 3' bwd Therapeutic Exercises Sitting Exercises Cervical Isometrics Sitting Exercise Name Cervical Isometrics Resistance Therapist Assist Reps/Minutes 2 x 15 ea Standing Exercises Cervical retraction Standing Exercise Name Issued HEP Reps/Minutes 10x3 Ball on wall Standing Exercise Name IR/ER, circles Resistance Yellow ball Pulleys Standing Exercise Name Shldr flex/abd stretch Resistance sitting Equipment Used Pulleys Reps/Minutes 3x30 each Comments cues for stretch w/out increase in pn Front and lat raises Side bilateral Resistance 1# DBs front raises, 0#>1# lat raises Equipment Used mirror Reps/Minutes 2x10 Comments initial cues for R UT overactivation and chin tuck TB IR and ER Standing Exercise Name IR and ER Side right Resistance peach TB Reps/Minutes 2x10 Comments VCs to keep UE in proper position, extended time for education PT-OP-T Assessment and Plan Start: 03/29/23 09:19 Freq: Status: Active Protocol: Document 05/12/23 09:12 (Rec: 05/12/23 10:00 [id number]) Physical Therapy Assessment Goals Seven Impairment Patient questionnaire Short Term Goal (STG) Pt's QuickDASH score to improve to 50% or better and NDI score to improve to 14/50 or better to demonstrate improving symptoms for an improved QOL. STG Duration 4 Mcfp Goal (LTG) Pt's QuickDASH score to improve to 30% or better and NDI score to improve to 4/50 or better to demonstrate improving symptoms for an improved QOL. LTG Duration 8 Six Impairment C spine AROM deficits Short Term Goal (STG) Pt's cervical spine left lateral flexion AROM to improve to 25 degrees or better to show improving ROM in order to improve ability to perform ADLs and IADLs. STG Duration 4 In School Suspension Coordinator Goal (LTG) Pt's cervical spine left lateral flexion AROM to improve to 30 degrees or better to show improving ROM in order to improve ability to perform ADLs and IADLs. Five Impairment C spine AROM deficits Short Term Goal (STG) Pt's cervical spine left rotation AROM to improve to 50 degrees or better to show improving ROM in order to improve ability to perform ADLs and IADLs. STG Duration 4 Mcfp Goal (LTG) Pt's cervical spine left rotation AROM to improve to 55 degrees or better to show improving ROM in order to improve ability to perform ADLs and IADLs. LTG Duration 8 Four Impairment Shoulder AROM deficits Short Term Goal (STG) Pt to improve shoulder functional IR AROM to L1 or better to show improving ROM in order to improve ability to perform ADLs and IADLs. STG Duration 4 Mcfp Goal (LTG) Pt to improve shoulder functional IR AROM to T10 or better to show improving ROM in order to improve ability to perform ADLs and IADLs. LTG Duration 8 Three Impairment Shoulder AROM deficits Short Term Goal (STG) Pt to improve shoulder functional ER AROM to C7 or better to show improving ROM in order to improve ability to perform ADLs and IADLs. STG Duration 4 In School Suspension Coordinator Goal (LTG) Pt to improve shoulder functional ER AROM to T3 or better to show improving ROM in order to improve ability to perform ADLs and IADLs. LTG Duration 8 Two Impairment Shoulder AROM deficits Short Term Goal (STG) Pt to improve shoulder ABD AROM to 110 degrees or better to show improving ROM in order to improve ability to perform ADLs and IADLs. STG Duration 4 Mcfp Goal (LTG) Pt to improve shoulder ABD AROM to 160 degrees or better to show improving ROM in order to improve ability to perform ADLs and IADLs. LTG Duration 8 One Impairment Shoulder AROM deficits Short Term Goal (STG) Pt to improve shoulder flexion AROM to 120 degrees or better to show improving ROM in order to improve ability to perform ADLs and IADLs. STG Duration 4 Mcfp Goal (LTG) Pt to improve shoulder flexion AROM to 150 degrees or better to show improving ROM in order to improve ability to perform ADLs and IADLs. LTG Duration 8 Assessment Summary Assessment Progressed pt from shldr IR/ER isometric walkout to RROM, tolerated well with much improvement with form, compensating less and self correcting more. Pt still requires frequent cues for cervical alignment, but self correction is improveing during therapeutic exercise. Trialed cervical isometric today to work toward increasing cervical ROM as specified in goals, good tolerance. Physical Therapy Plan Frequency and Duration Frequency of Treatment 2x/Week Duration of treatment (weeks) 8 Plan of Care Start Date 03/29/23 Plan of Care End Date 05/24/23 Therapeutic Interventions Therapeutic Interventions Home Exercise Program,Joint Mobilizations,Manual Therapy, Neuromuscular Re-education, Patient/Caregiver Education, Self-Care/Home Management,Soft Tissue Mobilization,Taping, Therapeutic Activities, Therapeutic Exercises Modalities Cold Pack/Ice Massage,Electric Stimulation,Hot Packs Next Visit Focus/Plan Next Note Type Treatment Note Next Visit Plan Review tolerance to updated HEP.
--- NOTE | 2023-05-19 12:39 | PT.OTN ---
Current Diagnoses Nondisplaced fracture of shaft of right clavicle, initial encounter for closed fracture (05/19/23) Physical Therapy Treatment Note PT-OP-A Visit Information Start: 03/29/23 09:19 Freq: Status: Active Protocol: Document 05/19/23 09:11 SW (Rec: 05/19/23 10:02 SW [id number]) Out-Patient Physical Therapy Visit Information Visit Information Visit Type Treatment Note Visit Start Time 09:15 Visit Stop Time 10:00 Total Visit Minutes 45 Visit Number 11 Number of OFFICE COORDINATOR Visits 4 Precautions Precautions Osteopenia PT-OP-B Current Condition Start: 03/29/23 09:19 Freq: Status: Active Protocol: Document 03/29/23 09:22 AB (Rec: 03/29/23 12:03 AB [id number]) Current Condition History of Current Condition Onset Date 01/13/23 History of Current Condition Pt reports she passed out after giving blood and fell, which caused a right clavicular fracture. She was in a sling for about 2 weeks, then was instructed to do minimal activity, but avoid reaching up or lifting anything. Currently, she reports a tightness on the right side of her chest near her clavicle, pain/tension on the right side of her neck. She also states she started to get carpal tunnel from wearing the sling, as she sometimes gets pain down to her arm, and was given carpal tunnel exercises. The pt states she was instructed by her doctor to only perform stretching for her right arm. She is right hand dominant. Future Testing and Treatments Planned 04/05/23 ortho follow up Treatment Goals Patient/Caregiver Goals To be able to perform ADLs, IADLs and recreational activities Prior Functional Status Baseline Function- ADL's Independent Baseline Function- Mobility Independent Baseline Function- Work/School Retired Baseline Function- Recreation/Hobbies Gardening/yard work Current Functional Impairments (Reported) Functional Limitations- ADL's Difficulty grooming and getting dressed due to mobility deficits Functional Limitations- Work/School Retired Functional Limitations- Recreation/ Unable to perform gardening or Hobbies yardwork Functional Limitations- Other Unable to perform heavier IADLs PT-OP-C Subjective Start: 03/29/23 09:19 Freq: Status: Active Protocol: Document 05/19/23 09:11 SW (Rec: 05/19/23 10:02 SW [id number]) OP-PT Subjective Patient Comments Patient Comments Pt reports doing a lot of yard work, irritating R shoulder. Pt feels a pushing in area of break, no known cause. Pt feels like R shldr is gaining mobility. Pt wanting to lift 40# water jugs. PT-OP-J Posture/Palpation/Skin Start: 03/29/23 09:19 Freq: Status: Active Protocol: Document 03/29/23 09:22 AB (Rec: 03/29/23 12:03 AB [id number]) Posture Evaluation Position Sitting Shoulder Posture (L) Elevated PT-OP-K Range of Motion Start: 03/29/23 09:19 Freq: Status: Active Protocol: Document 03/29/23 09:22 AB (Rec: 03/29/23 12:03 AB [id number]) Cervical Spine Range of Motion Cervical Spine Active Degrees Testing Position Sitting Flexion 52 Extension 30 Rotation Left 46 Rotation Right 55 Lateral Flexion Left 20 Lateral Flexion Right 30 ROM Limitations Soft Tissue Tightness,Pain Comments mild pain with rotation and SB to left Shoulder Goniometric Range of Motion Shoulder Right Active Shoulder ROM WFL No Testing Position Sitting Flexion 108 Abduction 86 External Rotation at 0 degrees Abduction 60 Internal Rotation Behind Back (text) L4 Comments Functional ER: occiput Pain with all motions except ER at 0D of ABD Left Active Shoulder ROM WFL Yes Testing Position Sitting Flexion 147 Abduction 160 External Rotation at 0 degrees Abduction 65 Internal Rotation Behind Back (text) T10 Comments Functional ER: T3 PT-OP-M Strength Start: 03/29/23 09:19 Freq: Status: Active Protocol: Document 03/29/23 09:22 AB (Rec: 03/29/23 12:03 AB [id number]) Shoulder Strength Shoulder Manual Muscle Testing Right Flexion 3- Fair- Extension 4 Good Abduction (C5) 3 Fair External Rotation 4- Good- Internal Rotation 4- Good- Comments Pain with flexion and ABD Left Flexion 4+ Good+ Extension 5 Normal Abduction (C5) 4+ Good+ External Rotation 4+ Good+ Internal Rotation 4+ Good+ Elbow/Forearm Strength Elbow and Forearm Manual Muscle Testing Right Flexion (C6) 5 Normal Extension (C7) 5 Normal Left Flexion (C6) 5 Normal Extension (C7) 5 Normal Hand Research And Development Tester/Pinch Strength Hand Dominance Hand Dominance Right Hand Strength Right Comments WFL Left Comments WFL PT-OP-Q Treatments Start: 03/29/23 09:19 Freq: Status: Active Protocol: Document 05/19/23 09:11 (Rec: 05/19/23 10:02 [id number]) Cardio Equipment Upper Body Ergometer (UBE) Duration (Minutes) 6 Height 2.5 Other 3' fwd, 3' bwd Therapeutic Exercises Supine Exercises Shldr FF Supine Exercise Name Dowel with 2# weight Side bilateral Equipment Used 2# Comments Strength and lat stretch Standing Exercises Front and lat raises Side bilateral Resistance 2# DBs front raises, 2# scaption 2# lat raises Equipment Used mirror Reps/Minutes 2x10 Comments initial cues for R UT overactivation and chin tuck TB rows Standing Exercise Name rows, high low rows Side bilateral Resistance mcgrath green TB Reps/Minutes 2x15 Comments cues for proper posture Other Exercises Crate lifting Other Exercise Name High<>low Resistance 5#>10#>20# Comments mechanics, cues for compensations Self-Care/Home Management Treatment Education Patient Education Body Mechanics,Home Exercise Program,Safety Other Education Educated patient on proper lifting mechanics, discussed with pt options for weights and resistance with HEP exercises. Discussed the importance of appropriately loading the muscles to gain strength. PT-OP-T Assessment and Plan Start: 03/29/23 09:19 Freq: Status: Active Protocol: Document 05/19/23 09:11 (Rec: 05/19/23 10:02 [id number]) Physical Therapy Assessment Goals Seven Impairment Patient questionnaire Short Term Goal (STG) Pt's QuickDASH score to improve to 50% or better and NDI score to improve to 14/50 or better to demonstrate improving symptoms for an improved QOL. STG Duration 4 Lens Finisher Goal (LTG) Pt's QuickDASH score to improve to 30% or better and NDI score to improve to 4/50 or better to demonstrate improving symptoms for an improved QOL. LTG Duration 8 Six Impairment C spine AROM deficits Short Term Goal (STG) Pt's cervical spine left lateral flexion AROM to improve to 25 degrees or better to show improving ROM in order to improve ability to perform ADLs and IADLs. STG Duration 4 Longterm Goal (LTG) Pt's cervical spine left lateral flexion AROM to improve to 30 degrees or better to show improving ROM in order to improve ability to perform ADLs and IADLs. Five Impairment C spine AROM deficits Short Term Goal (STG) Pt's cervical spine left rotation AROM to improve to 50 degrees or better to show improving ROM in order to improve ability to perform ADLs and IADLs. STG Duration 4 Longterm Goal (LTG) Pt's cervical spine left rotation AROM to improve to 55 degrees or better to show improving ROM in order to improve ability to perform ADLs and IADLs. LTG Duration 8 Four Impairment Shoulder AROM deficits Short Term Goal (STG) Pt to improve shoulder functional IR AROM to L1 or better to show improving ROM in order to improve ability to perform ADLs and IADLs. STG Duration 4 Longterm Goal (LTG) Pt to improve shoulder functional IR AROM to T10 or better to show improving ROM in order to improve ability to perform ADLs and IADLs. LTG Duration 8 Three Impairment Shoulder AROM deficits Short Term Goal (STG) Pt to improve shoulder functional ER AROM to C7 or better to show improving ROM in order to improve ability to perform ADLs and IADLs. STG Duration 4 Longterm Goal (LTG) Pt to improve shoulder functional ER AROM to T3 or better to show improving ROM in order to improve ability to perform ADLs and IADLs. LTG Duration 8 Two Impairment Shoulder AROM deficits Short Term Goal (STG) Pt to improve shoulder ABD AROM to 110 degrees or better to show improving ROM in order to improve ability to perform ADLs and IADLs. STG Duration 4 Longterm Goal (LTG) Pt to improve shoulder ABD AROM to 160 degrees or better to show improving ROM in order to improve ability to perform ADLs and IADLs. LTG Duration 8 One Impairment Shoulder AROM deficits Short Term Goal (STG) Pt to improve shoulder flexion AROM to 120 degrees or better to show improving ROM in order to improve ability to perform ADLs and IADLs. STG Duration 4 Longterm Goal (LTG) Pt to improve shoulder flexion AROM to 150 degrees or better to show improving ROM in order to improve ability to perform ADLs and IADLs. LTG Duration 8 Assessment Summary Assessment Pt inquired about lifting limitations, reviewed chart did not locate specific limitations, advised pt to followup with orthopedic doctor. Progressed pt with lifting high<>low. Progressed strengthening in a functional capacity with lifting weighted crate high<>low, cued pt for compensations and proper lifting techniques, educated pt on load and safety. Discussed alternatives to weights for progressive strengthening with HEP. Physical Therapy Plan Frequency and Duration Frequency of Treatment 2x/Week Duration of treatment (weeks) 8 Plan of Care Start Date 03/29/23 Plan of Care End Date 05/24/23 Therapeutic Interventions Therapeutic Interventions Home Exercise Program,Joint Mobilizations,Manual Therapy, Neuromuscular Re-education, Patient/Caregiver Education, Self-Care/Home Management,Soft Tissue Mobilization,Taping, Therapeutic Activities, Therapeutic Exercises Modalities Cold Pack/Ice Massage,Electric Stimulation,Hot Packs Next Visit Focus/Plan Next Note Type Treatment Note Next Visit Plan Review tolerance to updated HEP.
--- NOTE | 2023-05-23 09:45 | PT.OPPOC ---
Physical, Occupational & Speech Therapy At [facility] Current Diagnoses Nondisplaced fracture of shaft of right clavicle, initial encounter for closed fracture (05/23/23) Visit Care Team Role Provider Type Abbie Sandhu MD Primary Care Provider Physician Specialty: Internal Medicine Address: [place], [address] Email: Baltazar Sanford PA-C Attending Provider Non-Staff Family Provider Referring Provider Specialty: Medical Address: [address] [place] [address], [id number] Phone: Email: Plan Of Care PT-OP-T Assessment and Plan Start: 03/29/23 09:19 Freq: Status: Active Protocol: Document 05/23/23 08:35 AB (Rec: 05/23/23 09:44 AB [id number]) Physical Therapy Assessment Goals Seven Impairment Patient questionnaire Short Term Goal (STG) Pt's QuickDASH score to improve to 50% or better and NDI score to improve to 14/50 or better to demonstrate improving symptoms for an improved QOL. STG Duration 4 Prison Goal (LTG) Pt's QuickDASH score to improve to 30% or better and NDI score to improve to 4/50 or better to demonstrate improving symptoms for an improved QOL. LTG Duration 8 Six Impairment C spine AROM deficits Short Term Goal (STG) Pt's cervical spine left lateral flexion AROM to improve to 25 degrees or better to show improving ROM in order to improve ability to perform ADLs and IADLs. STG Duration 4 Prison Goal (LTG) Pt's cervical spine left lateral flexion AROM to improve to 30 degrees or better to show improving ROM in order to improve ability to perform ADLs and IADLs. Five Impairment C spine AROM deficits Short Term Goal (STG) Pt's cervical spine left rotation AROM to improve to 50 degrees or better to show improving ROM in order to improve ability to perform ADLs and IADLs. STG Duration 4 Statistical Financial Analyst Goal (LTG) Pt's cervical spine left rotation AROM to improve to 55 degrees or better to show improving ROM in order to improve ability to perform ADLs and IADLs. LTG Duration 8 Four Impairment Shoulder AROM deficits Short Term Goal (STG) Pt to improve shoulder functional IR AROM to L1 or better to show improving ROM in order to improve ability to perform ADLs and IADLs. STG Duration 4 Statistical Financial Analyst Goal (LTG) Pt to improve shoulder functional IR AROM to T10 or better to show improving ROM in order to improve ability to perform ADLs and IADLs. LTG Duration 8 Three Impairment Shoulder AROM deficits Short Term Goal (STG) Pt to improve shoulder functional ER AROM to C7 or better to show improving ROM in order to improve ability to perform ADLs and IADLs. STG Duration 4 Statistical Financial Analyst Goal (LTG) Pt to improve shoulder functional ER AROM to T3 or better to show improving ROM in order to improve ability to perform ADLs and IADLs. LTG Duration 8 Two Impairment Shoulder AROM deficits Short Term Goal (STG) Pt to improve shoulder ABD AROM to 110 degrees or better to show improving ROM in order to improve ability to perform ADLs and IADLs. STG Duration 4 Statistical Financial Analyst Goal (LTG) Pt to improve shoulder ABD AROM to 160 degrees or better to show improving ROM in order to improve ability to perform ADLs and IADLs. LTG Duration 8 One Impairment Shoulder AROM deficits Short Term Goal (STG) Pt to improve shoulder flexion AROM to 120 degrees or better to show improving ROM in order to improve ability to perform ADLs and IADLs. STG Duration 4 Prison Goal (LTG) Pt to improve shoulder flexion AROM to 150 degrees or better to show improving ROM in order to improve ability to perform ADLs and IADLs. LTG Duration 8 Progress Towards Goals Progress Towards Goals Progressing Toward Goals Assessment Summary Assessment Nighat Hernandez has completed 11 visits of skilled PT to improve right UE impairments secondary to a clavicular fracture. The pt demonstrates significant improvement in her cervical spine and UE AROM, strength, and UE biomechanics. The pt also reports significant improvement in pain symptoms, as well as in her ability to perform ADLs and IADLs. She als demonstrates decreased UT compensation, but continues to require intermittent cues for posture. While the pt has made good progress towards her goals, she continues with AROM deficits, strength deficits, activity and load intolerance, and pain symptoms with more strenuous IADLs. Based on these findings, the pt would benefit from additional PT as per her updated POC in order to improve these remaining deficits. Physical Therapy Plan Frequency and Duration Frequency of Treatment 2x/Week Duration of treatment (weeks) 6 Plan of Care Start Date 05/23/23 Plan of Care End Date 07/04/23 Next Visit Focus/Plan Next Note Type Treatment Note Next Visit Plan Continue progressing UE strengthening exercises to improve load tolerance. Plan of Care Dates Plan of Care Start Date 05/23/23 Plan of Care End Date 07/04/23 Electronically Signed by: Luis Peoples, MORGAN 05/23/23 0945 If you are in agreement with this Plan of Care, please return a signed and dated copy. I have reviewed this Plan of Care and certify that the skilled therapy services above are required to meet the patient?s needs. Physician Signature Date Printed Name and Credentials Clinical Instructor Signature Printed Name and Credentials
--- NOTE | 2023-05-23 09:46 | PT.OTN ---
Current Diagnoses Nondisplaced fracture of shaft of right clavicle, initial encounter for closed fracture (05/23/23) Physical Therapy Treatment Note PT-OP-A Visit Information Start: 03/29/23 09:19 Freq: Status: Active Protocol: Document 05/23/23 08:35 AB (Rec: 05/23/23 09:44 AB [id number]) Out-Patient Physical Therapy Visit Information Visit Information Visit Type Progress Note Visit Start Time 08:30 Visit Stop Time 09:15 Total Visit Minutes 45 Visit Number 12 Evaluation Information Evaluation Date 03/29/23 Precautions Precautions Osteopenia PT-OP-B Current Condition Start: 03/29/23 09:19 Freq: Status: Active Protocol: Document 05/23/23 08:35 AB (Rec: 05/23/23 09:44 AB [id number]) Current Condition History of Current Condition Onset Date 01/13/23 History of Current Condition Pt reports she passed out after giving blood and fell, which caused a right clavicular fracture. She was in a sling for about 2 weeks, then was instructed to do minimal activity, but avoid reaching up or lifting anything. Currently, she reports a tightness on the right side of her chest near her clavicle, pain/tension on the right side of her neck. She also states she started to get carpal tunnel from wearing the sling, as she sometimes gets pain down to her arm, and was given carpal tunnel exercises. The pt states she was instructed by her doctor to only perform stretching for her right arm. She is right hand dominant. Future Testing and Treatments Planned 04/05/23 ortho follow up Treatment Goals Patient/Caregiver Goals To be able to perform ADLs, IADLs and recreational activities Current Functional Impairments (Reported) Functional Limitations- ADL's Able to perform all ADLs Functional Limitations- Work/School Retired Functional Limitations- Recreation/ Is able to perform all ADLs Hobbies and IADLs but becomes sore in her shoulder afterward Functional Limitations- Other Still difficult to lift heavier items (ex: cat iron pot) PT-OP-C Subjective Start: 03/29/23 09:19 Freq: Status: Active Protocol: Document 05/23/23 08:35 AB (Rec: 05/23/23 09:44 AB [id number]) OP-PT Subjective Patient Comments Patient Comments The pt reports she is doing much better overall compared to when she first started PT. She is now able to do most of her ADLs and IADLs, but continues to have difficulty with lifting heavy objects or when doing repetitive activities such as gardening. She reports she typically get woken up by R shoulder pain around 4-5AM, and is sometimes able to fall asleep, but other times it keeps her awake . Patient Questionnaires Quick Dash- Upper Extremity Quick Dash UE Score 29.54% Quick Dash UE Impairment 20 to 39% Impaired (Score 20- 39) PT-OP-J Posture/Palpation/Skin Start: 03/29/23 09:19 Freq: Status: Active Protocol: Document 05/23/23 09:44 AB (Rec: 05/23/23 09:44 AB [id number]) Posture Evaluation Position Sitting T-Spine Posture Increased Kyphosis Shoulder Posture (L) Elevated PT-OP-K Range of Motion Start: 03/29/23 09:19 Freq: Status: Active Protocol: Document 05/23/23 08:35 AB (Rec: 05/23/23 09:44 AB [id number]) Cervical Spine Range of Motion Cervical Spine Active Degrees Testing Position Sitting Flexion 35 Extension 60 Rotation Left 54 Rotation Right 65 Lateral Flexion Left 25 Lateral Flexion Right 35 ROM Limitations Soft Tissue Tightness Comments Denies pain with all motions Shoulder Goniometric Range of Motion Shoulder Right Active Shoulder ROM WFL Yes Testing Position Sitting Flexion 144 Abduction 146 External Rotation at 0 degrees Abduction 72 Internal Rotation Behind Back (text) T10 Comments Functional ER: C6 Denies pain but feels like she is straining more compared to her right Left Active Shoulder ROM WFL Yes Testing Position Sitting Flexion 150 Abduction 160 External Rotation at 0 degrees Abduction 75 Internal Rotation Behind Back (text) T10 Comments Functional ER: T3 PT-OP-M Strength Start: 03/29/23 09:19 Freq: Status: Active Protocol: Document 05/23/23 08:35 AB (Rec: 05/23/23 09:44 AB [id number]) Shoulder Strength Shoulder Manual Muscle Testing Right Flexion 4- Good- Extension 4+ Good+ Abduction (C5) 4 Good External Rotation 4 Good Internal Rotation 4+ Good+ Comments Pain with flexion Left Flexion 5 Normal Extension 5 Normal Abduction (C5) 4+ Good+ External Rotation 5 Normal Internal Rotation 5 Normal Elbow/Forearm Strength Elbow and Forearm Manual Muscle Testing Right Flexion (C6) 5 Normal Extension (C7) 5 Normal Left Flexion (C6) 5 Normal Extension (C7) 5 Normal PT-OP-Q Treatments Start: 03/29/23 09:19 Freq: Status: Active Protocol: Document 05/23/23 08:35 AB (Rec: 05/23/23 09:44 AB [id number]) Cardio Equipment Upper Body Ergometer (UBE) Duration (Minutes) 6 Height 2.5 Other 3' fwd, 3' bwd Therapeutic Exercises Sidelying Exercises open book Sidelying Exercise Name progressed to regular open book Side right Reps/Minutes x10 reps Standing Exercises Bicep curls Side bilateral Resistance 2# DBs Reps/Minutes 1x10 Front and lat raises Standing Exercise Name front, scap, lat raises Side bilateral Resistance 2# DBs Equipment Used mirror Reps/Minutes 1x10 TB IR and ER Standing Exercise Name IR and ER Side right Resistance orange TB Reps/Minutes 2x10 Comments VCs to keep UE in proper position, extended time for education TB rows Standing Exercise Name rows Side bilateral Resistance [place] green TB Reps/Minutes 2x15 Comments cues for proper posture Self-Care/Home Management Treatment Education Patient Education Body Mechanics,Home Exercise Program,Posture,Safety PT-OP-T Assessment and Plan Start: 03/29/23 09:19 Freq: Status: Active Protocol: Document 05/23/23 08:35 AB (Rec: 05/23/23 09:44 AB [id number]) Physical Therapy Assessment Goals Seven Impairment Patient questionnaire Short Term Goal (STG) Pt's QuickDASH score to improve to 50% or better and NDI score to improve to 14/50 or better to demonstrate improving symptoms for an improved QOL. STG Duration 4 Mcc Goal (LTG) Pt's QuickDASH score to improve to 30% or better and NDI score to improve to 4/50 or better to demonstrate improving symptoms for an improved QOL. LTG Duration 8 Six Impairment C spine AROM deficits Short Term Goal (STG) Pt's cervical spine left lateral flexion AROM to improve to 25 degrees or better to show improving ROM in order to improve ability to perform ADLs and IADLs. STG Duration 4 Repair Operator Goal (LTG) Pt's cervical spine left lateral flexion AROM to improve to 30 degrees or better to show improving ROM in order to improve ability to perform ADLs and IADLs. Five Impairment C spine AROM deficits Short Term Goal (STG) Pt's cervical spine left rotation AROM to improve to 50 degrees or better to show improving ROM in order to improve ability to perform ADLs and IADLs. STG Duration 4 Mcc Goal (LTG) Pt's cervical spine left rotation AROM to improve to 55 degrees or better to show improving ROM in order to improve ability to perform ADLs and IADLs. LTG Duration 8 Four Impairment Shoulder AROM deficits Short Term Goal (STG) Pt to improve shoulder functional IR AROM to L1 or better to show improving ROM in order to improve ability to perform ADLs and IADLs. STG Duration 4 Mcc Goal (LTG) Pt to improve shoulder functional IR AROM to T10 or better to show improving ROM in order to improve ability to perform ADLs and IADLs. LTG Duration 8 Three Impairment Shoulder AROM deficits Short Term Goal (STG) Pt to improve shoulder functional ER AROM to C7 or better to show improving ROM in order to improve ability to perform ADLs and IADLs. STG Duration 4 Mcc Goal (LTG) Pt to improve shoulder functional ER AROM to T3 or better to show improving ROM in order to improve ability to perform ADLs and IADLs. LTG Duration 8 Two Impairment Shoulder AROM deficits Short Term Goal (STG) Pt to improve shoulder ABD AROM to 110 degrees or better to show improving ROM in order to improve ability to perform ADLs and IADLs. STG Duration 4 Mcc Goal (LTG) Pt to improve shoulder ABD AROM to 160 degrees or better to show improving ROM in order to improve ability to perform ADLs and IADLs. LTG Duration 8 One Impairment Shoulder AROM deficits Short Term Goal (STG) Pt to improve shoulder flexion AROM to 120 degrees or better to show improving ROM in order to improve ability to perform ADLs and IADLs. STG Duration 4 Repair Operator Goal (LTG) Pt to improve shoulder flexion AROM to 150 degrees or better to show improving ROM in order to improve ability to perform ADLs and IADLs. LTG Duration 8 Progress Towards Goals Progress Towards Goals Progressing Toward Goals Assessment Summary Assessment Nighat Hernandez has completed 11 visits of skilled PT to improve right UE impairments secondary to a clavicular fracture. The pt demonstrates significant improvement in her cervical spine and UE AROM, strength, and UE biomechanics. The pt also reports significant improvement in pain symptoms, as well as in her ability to perform ADLs and IADLs. She also demonstrates decreased UT compensation, but continues to require intermittent cues for posture. While the pt has made good progress towards her goals, she continues with AROM deficits, strength deficits, activity and load intolerance, and pain symptoms with more strenuous IADLs. Based on these findings, the pt would benefit from additional PT as per her updated POC in order to improve these remaining deficits. Physical Therapy Plan Frequency and Duration Frequency of Treatment 2x/Week Duration of treatment (weeks) 6 Plan of Care Start Date 05/23/23 Plan of Care End Date 07/04/23 Next Visit Focus/Plan Next Note Type Treatment Note Next Visit Plan Continue progressing UE strengthening exercises to improve load tolerance.
--- NOTE | 2023-05-26 16:45 | PT.OTN ---
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 She was in a sling for about 2 weeks, then was instructed to do minimal activity, but avoid reaching up or lifting anything. Currently, she reports a tightness on the right side of her chest near her clavicle, pain/tension on the right side of her neck. She also states she started to get carpal tunnel from wearing the sling, as she sometimes gets pain down to her arm, and was given carpal tunnel exercises. The pt states she was instructed by her doctor to only perform stretching for her right arm. She is right hand dominant. Future Testing and Treatments Planned 04/05/23 ortho follow up Treatment Goals Patient/Caregiver Goals To be able to perform ADLs, IADLs and recreational activities Current Functional Impairments (Reported) Functional Limitations- ADL's Able to perform all ADLs Functional Limitations- Work/School Retired Functional Limitations- Recreation/ Is able to perform all ADLs Hobbies and IADLs but becomes sore in her shoulder afterward Functional Limitations- Other Still difficult to lift heavier items (ex: cat iron pot) PT-OP-C Subjective Start: 03/29/23 09:19 Freq: Status: Active Protocol: Document 05/26/23 09:09 SW (Rec: 05/26/23 10:43 [id number]) OP-PT Subjective Patient Comments Patient Comments No new c/o today. PT-OP-J Posture/Palpation/Skin Start: 03/29/23 09:19 Freq: Status: Active Protocol: Document 05/23/23 09:44 AB (Rec: 05/23/23 09:44 AB [id number]) Posture Evaluation Position Sitting T-Spine Posture Increased Kyphosis Shoulder Posture (L) Elevated PT-OP-K Range of Motion Start: 03/29/23 09:19 Freq: Status: Active Protocol: Document 05/23/23 08:35 AB (Rec: 05/23/23 09:44 AB [id number]) Cervical Spine Range of Motion Cervical Spine Active Degrees Testing Position Sitting Flexion 35 Extension 60 Rotation Left 54 Rotation Right 65 Lateral Flexion Left 25 Lateral Flexion Right 35 ROM Limitations Soft Tissue Tightness Comments Denies pain with all motions Shoulder Goniometric Range of Motion Shoulder Right Active Shoulder ROM WFL Yes Testing Position Sitting Flexion 144 Abduction 146 External Rotation at 0 degrees Abduction 72 Internal Rotation Behind Back (text) T10 Comments Functional ER: C6 Denies pain but feels like she is straining more compared to her right Left Active Shoulder ROM WFL Yes Testing Position Sitting Flexion 150 Abduction 160 External Rotation at 0 degrees Abduction 75 Internal Rotation Behind Back (text) T10 Comments Functional ER: T3 PT-OP-M Strength Start: 03/29/23 09:19 Freq: Status: Active Protocol: Document 05/23/23 08:35 AB (Rec: 05/23/23 09:44 AB [id number]) Shoulder Strength Shoulder Manual Muscle Testing Right Flexion 4- Good- Extension 4+ Good+ Abduction (C5) 4 Good External Rotation 4 Good Internal Rotation 4+ Good+ Comments Pain with flexion Left Flexion 5 Normal Extension 5 Normal Abduction (C5) 4+ Good+ External Rotation 5 Normal Internal Rotation 5 Normal Elbow/Forearm Strength Elbow and Forearm Manual Muscle Testing Right Flexion (C6) 5 Normal Extension (C7) 5 Normal Left Flexion (C6) 5 Normal Extension (C7) 5 Normal PT-OP-Q Treatments Start: 03/29/23 09:19 Freq: Status: Active Protocol: Document 05/26/23 09:09 SW (Rec: 05/26/23 10:43 SW [id number]) Cardio Equipment Upper Body Ergometer (UBE) Duration (Minutes) 6 Height 2.5 Other 3' fwd, 3' bwd Therapeutic Exercises Standing Exercises Shoulder ER stretch Standing Exercise Name elbow at side bent to 90 degrees Side right Equipment Used @ corner of wall Reps/Minutes 3 x 30 Comments cues for slow gentle stretch Tricep Resistance Level 1 Equipment Used [place] TB Reps/Minutes 2 x 10 Bicep curls Side bilateral Resistance 2# DBs Reps/Minutes 1x10 Pulleys Standing Exercise Name Shldr flex/abd stretch Resistance sitting Equipment Used Pulleys Reps/Minutes 3x30 each Comments cues for stretch w/out increase in pn Cheerleaders Standing Exercise Name Horiz. ABD, Diagonals Side bilateral Resistance peach TB Reps/Minutes 1x10 Front and lat raises Standing Exercise Name front, scap, lat raises Side bilateral Resistance 2# DBs Equipment Used mirror Reps/Minutes 3x10 TB IR and ER Standing Exercise Name IR and ER Side right Resistance orange TB Reps/Minutes 2x15 Comments VCs to keep UE in proper position, extended time for education TB rows Standing Exercise Name rows Side bilateral Resistance Blue TB Reps/Minutes 2x15 Comments cues for proper posture IR strap stretch Standing Exercise Name HEP reviewed Side right Equipment Used towel PT-OP-T Assessment and Plan Start: 03/29/23 09:19 Freq: Status: Active Protocol: Document 05/26/23 09:09 (Rec: 05/26/23 10:43 [id number]) Physical Therapy Assessment Goals Seven Impairment Patient questionnaire Short Term Goal (STG) Pt's QuickDASH score to improve to 50% or better and NDI score to improve to 14/50 or better to demonstrate improving symptoms for an improved QOL. STG Duration 4 Chcf Goal (LTG) Pt's QuickDASH score to improve to 30% or better and NDI score to improve to 4/50 or better to demonstrate improving symptoms for an improved QOL. LTG Duration 8 Six Impairment C spine AROM deficits Short Term Goal (STG) Pt's cervical spine left lateral flexion AROM to improve to 25 degrees or better to show improving ROM in order to improve ability to perform ADLs and IADLs. STG Duration 4 Chcf Goal (LTG) Pt's cervical spine left lateral flexion AROM to improve to 30 degrees or better to show improving ROM in order to improve ability to perform ADLs and IADLs. Five Impairment C spine AROM deficits Short Term Goal (STG) Pt's cervical spine left rotation AROM to improve to 50 degrees or better to show improving ROM in order to improve ability to perform ADLs and IADLs. STG Duration 4 Chcf Goal (LTG) Pt's cervical spine left rotation AROM to improve to 55 degrees or better to show improving ROM in order to improve ability to perform ADLs and IADLs. LTG Duration 8 Four Impairment Shoulder AROM deficits Short Term Goal (STG) Pt to improve shoulder functional IR AROM to L1 or better to show improving ROM in order to improve ability to perform ADLs and IADLs. STG Duration 4 Chcf Goal (LTG) Pt to improve shoulder functional IR AROM to T10 or better to show improving ROM in order to improve ability to perform ADLs and IADLs. LTG Duration 8 Three Impairment Shoulder AROM deficits Short Term Goal (STG) Pt to improve shoulder functional ER AROM to C7 or better to show improving ROM in order to improve ability to perform ADLs and IADLs. STG Duration 4 Needle Felt Making Machine Operator Goal (LTG) Pt to improve shoulder functional ER AROM to T3 or better to show improving ROM in order to improve ability to perform ADLs and IADLs. LTG Duration 8 Two Impairment Shoulder AROM deficits Short Term Goal (STG) Pt to improve shoulder ABD AROM to 110 degrees or better to show improving ROM in order to improve ability to perform ADLs and IADLs. STG Duration 4 Needle Felt Making Machine Operator Goal (LTG) Pt to improve shoulder ABD AROM to 160 degrees or better to show improving ROM in order to improve ability to perform ADLs and IADLs. LTG Duration 8 One Impairment Shoulder AROM deficits Short Term Goal (STG) Pt to improve shoulder flexion AROM to 120 degrees or better to show improving ROM in order to improve ability to perform ADLs and IADLs. STG Duration 4 Needle Felt Making Machine Operator Goal (LTG) Pt to improve shoulder flexion AROM to 150 degrees or better to show improving ROM in order to improve ability to perform ADLs and IADLs. LTG Duration 8 Assessment Summary Assessment Continued strengthening and ROM exercises this session toward goals. Reviewed shoulder ER stretch. Audible noise with discomfort in bicipital area where patient has had persistant pain, during shoulder internal rotation, pt denies pain with ROM post. Physical Therapy Plan Frequency and Duration Frequency of Treatment 2x/Week Duration of treatment (weeks) 6 Plan of Care Start Date 05/23/23 Plan of Care End Date 07/04/23 Therapeutic Interventions Therapeutic Interventions Home Exercise Program,Joint Mobilizations,Manual Therapy, Neuromuscular Re-education, Patient/Caregiver Education, Self-Care/Home Management,Soft Tissue Mobilization,Taping, Therapeutic Activities, Therapeutic Exercises Modalities Cold Pack/Ice Massage,Electric Stimulation,Hot Packs Next Visit Focus/Plan Next Note Type Treatment Note Next Visit Plan Continue progressing UE strengthening exercises to improve load tolerance.
--- NOTE | 2023-05-30 09:20 | PT.OTN ---
Current Diagnoses Nondisplaced fracture of shaft of right clavicle, initial encounter for closed fracture (05/30/23) Physical Therapy Treatment Note PT-OP-A Visit Information Start: 03/29/23 09:19 Freq: Status: Active Protocol: Document 05/30/23 08:37 AB (Rec: 05/30/23 09:20 AB [id number]) Out-Patient Physical Therapy Visit Information Visit Information Visit Type Treatment Note Visit Start Time 08:32 Visit Stop Time 09:15 Total Visit Minutes 43 Visit Number 14 Evaluation Information Evaluation Date 03/29/23 Precautions Precautions Osteopenia PT-OP-B Current Condition Start: 03/29/23 09:19 Freq: Status: Active Protocol: Document 05/23/23 08:35 AB (Rec: 05/23/23 09:44 AB [id number]) Current Condition History of Current Condition Onset Date 01/13/23 History of Current Condition Pt reports she passed out after giving blood and fell, which caused a right clavicular fracture. She was in a sling for about 2 weeks, then was instructed to do minimal activity, but avoid reaching up or lifting anything. Currently, she reports a tightness on the right side of her chest near her clavicle, pain/tension on the right side of her neck. She also states she started to get carpal tunnel from wearing the sling, as she sometimes gets pain down to her arm, and was given carpal tunnel exercises. The pt states she was instructed by her doctor to only perform stretching for her right arm. She is right hand dominant. Future Testing and Treatments Planned 04/05/23 ortho follow up Treatment Goals Patient/Caregiver Goals To be able to perform ADLs, IADLs and recreational activities Current Functional Impairments (Reported) Functional Limitations- ADL's Able to perform all ADLs Functional Limitations- Work/School Retired Functional Limitations- Recreation/ Is able to perform all ADLs Hobbies and IADLs but becomes sore in her shoulder afterward Functional Limitations- Other Still difficult to lift heavier items (ex: cat iron pot) PT-OP-C Subjective Start: 03/29/23 09:19 Freq: Status: Active Protocol: Document 05/30/23 08:37 AB (Rec: 05/30/23 09:20 AB [id number]) OP-PT Subjective Patient Comments Patient Comments The pt reports she has been doing fine overall. She reports one stretch that was added last visit did cause some pain, therefore it was discontinued. PT-OP-J Posture/Palpation/Skin Start: 03/29/23 09:19 Freq: Status: Active Protocol: Document 05/23/23 09:44 AB (Rec: 05/23/23 09:44 AB [id number]) Posture Evaluation Position Sitting T-Spine Posture Increased Kyphosis Shoulder Posture (L) Elevated PT-OP-K Range of Motion Start: 03/29/23 09:19 Freq: Status: Active Protocol: Document 05/23/23 08:35 AB (Rec: 05/23/23 09:44 AB [id number]) Cervical Spine Range of Motion Cervical Spine Active Degrees Testing Position Sitting Flexion 35 Extension 60 Rotation Left 54 Rotation Right 65 Lateral Flexion Left 25 Lateral Flexion Right 35 ROM Limitations Soft Tissue Tightness Comments Denies pain with all motions Shoulder Goniometric Range of Motion Shoulder Right Active Shoulder ROM WFL Yes Testing Position Sitting Flexion 144 Abduction 146 External Rotation at 0 degrees Abduction 72 Internal Rotation Behind Back (text) T10 Comments Functional ER: C6 Denies pain but feels like she is straining more compared to her right Left Active Shoulder ROM WFL Yes Testing Position Sitting Flexion 150 Abduction 160 External Rotation at 0 degrees Abduction 75 Internal Rotation Behind Back (text) T10 Comments Functional ER: T3 PT-OP-M Strength Start: 03/29/23 09:19 Freq: Status: Active Protocol: Document 05/23/23 08:35 AB (Rec: 05/23/23 09:44 AB [id number]) Shoulder Strength Shoulder Manual Muscle Testing Right Flexion 4- Good- Extension 4+ Good+ Abduction (C5) 4 Good External Rotation 4 Good Internal Rotation 4+ Good+ Comments Pain with flexion Left Flexion 5 Normal Extension 5 Normal Abduction (C5) 4+ Good+ External Rotation 5 Normal Internal Rotation 5 Normal Elbow/Forearm Strength Elbow and Forearm Manual Muscle Testing Right Flexion (C6) 5 Normal Extension (C7) 5 Normal Left Flexion (C6) 5 Normal Extension (C7) 5 Normal PT-OP-Q Treatments Start: 03/29/23 09:19 Freq: Status: Active Protocol: Document 05/30/23 08:37 AB (Rec: 05/30/23 09:20 AB [id number]) Cardio Equipment Upper Body Ergometer (UBE) Duration (Minutes) 6 Height 2.5 Other 3' fwd, 3' bwd Therapeutic Exercises Sidelying Exercises open book Sidelying Exercise Name progressed to regular open book Side right Reps/Minutes 2x10 Standing Exercises Tricep Equipment Used [place] TB Reps/Minutes 2x15 Bicep curls Standing Exercise Name Hammer curls Side bilateral Resistance 5# DBs Reps/Minutes 2x10 Cheerleaders Standing Exercise Name Horiz. ABD, Diagonals Side bilateral Resistance peach TB Reps/Minutes 2x5 ea Front and lat raises Standing Exercise Name front, scap, lat raises Side bilateral Resistance 2# DBs Equipment Used mirror Reps/Minutes 2x10 TB IR and ER Standing Exercise Name IR and ER Side right Resistance orange TB Reps/Minutes 2x15 Comments VCs to keep UE in proper position TB rows Standing Exercise Name rows Side bilateral Resistance Blue TB Reps/Minutes 2x15 Comments cues for proper posture Other Exercises Baez carries Side bilateral Resistance 10# DBs, 15# DBs Reps/Minutes 2 laps (112ft ea) PT-OP-T Assessment and Plan Start: 03/29/23 09:19 Freq: Status: Active Protocol: Document 05/30/23 08:37 AB (Rec: 05/30/23 09:20 AB [id number]) Physical Therapy Assessment Goals Seven Impairment Patient questionnaire Short Term Goal (STG) Pt's QuickDASH score to improve to 50% or better and NDI score to improve to 14/50 or better to demonstrate improving symptoms for an improved QOL. STG Duration 4 Well Digger Goal (LTG) Pt's QuickDASH score to improve to 30% or better and NDI score to improve to 4/50 or better to demonstrate improving symptoms for an improved QOL. LTG Duration 8 Six Impairment C spine AROM deficits Short Term Goal (STG) Pt's cervical spine left lateral flexion AROM to improve to 25 degrees or better to show improving ROM in order to improve ability to perform ADLs and IADLs. STG Duration 4 Well Digger Goal (LTG) Pt's cervical spine left lateral flexion AROM to improve to 30 degrees or better to show improving ROM in order to improve ability to perform ADLs and IADLs. Five Impairment C spine AROM deficits Short Term Goal (STG) Pt's cervical spine left rotation AROM to improve to 50 degrees or better to show improving ROM in order to improve ability to perform ADLs and IADLs. STG Duration 4 Well Digger Goal (LTG) Pt's cervical spine left rotation AROM to improve to 55 degrees or better to show improving ROM in order to improve ability to perform ADLs and IADLs. LTG Duration 8 Four Impairment Shoulder AROM deficits Short Term Goal (STG) Pt to improve shoulder functional IR AROM to L1 or better to show improving ROM in order to improve ability to perform ADLs and IADLs. STG Duration 4 Chcf Goal (LTG) Pt to improve shoulder functional IR AROM to T10 or better to show improving ROM in order to improve ability to perform ADLs and IADLs. LTG Duration 8 Three Impairment Shoulder AROM deficits Short Term Goal (STG) Pt to improve shoulder functional ER AROM to C7 or better to show improving ROM in order to improve ability to perform ADLs and IADLs. STG Duration 4 Chcf Goal (LTG) Pt to improve shoulder functional ER AROM to T3 or better to show improving ROM in order to improve ability to perform ADLs and IADLs. LTG Duration 8 Two Impairment Shoulder AROM deficits Short Term Goal (STG) Pt to improve shoulder ABD AROM to 110 degrees or better to show improving ROM in order to improve ability to perform ADLs and IADLs. STG Duration 4 Well Digger Goal (LTG) Pt to improve shoulder ABD AROM to 160 degrees or better to show improving ROM in order to improve ability to perform ADLs and IADLs. LTG Duration 8 One Impairment Shoulder AROM deficits Short Term Goal (STG) Pt to improve shoulder flexion AROM to 120 degrees or better to show improving ROM in order to improve ability to perform ADLs and IADLs. STG Duration 4 Chcf Goal (LTG) Pt to improve shoulder flexion AROM to 150 degrees or better to show improving ROM in order to improve ability to perform ADLs and IADLs. LTG Duration 8 Assessment Summary Assessment The pt was progressed today by adding baez carries to improve her tolerance to carrying heavy objects, as this is one of her goals ( along with lifting heavier objects). The pt was able to perform this exercise with up to 15# DBs on each side. Continued with other RTC and periscapular strengthening exercises, with progressions in sets/reps or resistance as noted above. She continues to require occasional VCs for proper posture and activation of periscapular muscles. The pt continues to benefit from skilled PT at this time to resolve her remaining deficits . Physical Therapy Plan Frequency and Duration Frequency of Treatment 2x/Week Duration of treatment (weeks) 6 Plan of Care Start Date 05/23/23 Plan of Care End Date 07/04/23 Therapeutic Interventions Therapeutic Interventions Home Exercise Program,Joint Mobilizations,Manual Therapy, Neuromuscular Re-education, Patient/Caregiver Education, Self-Care/Home Management,Soft Tissue Mobilization,Taping, Therapeutic Activities, Therapeutic Exercises Modalities Cold Pack/Ice Massage,Electric Stimulation,Hot Packs Next Visit Focus/Plan Next Note Type Treatment Note Next Visit Plan Continue progressing UE strengthening exercises to improve load tolerance.
--- NOTE | 2023-06-02 09:59 | PT.OTN ---
Current Diagnoses Nondisplaced fracture of shaft of right clavicle, initial encounter for closed fracture (06/02/23) Physical Therapy Treatment Note PT-OP-A Visit Information Start: 03/29/23 09:19 Freq: Status: Active Protocol: Document 06/02/23 09:07 SP (Rec: 06/02/23 10:21 SP [id number]) Out-Patient Physical Therapy Visit Information Visit Information Visit Type Treatment Note Visit Note 10/01 after PN Visit Start Time 09:07 Visit Stop Time 09:59 Total Visit Minutes 52 Visit Number 15 Number of MANAGER ASSET Visits 1 Evaluation Information Evaluation Date 03/29/23 Precautions Precautions Osteopenia PT-OP-B Current Condition Start: 03/29/23 09:19 Freq: Status: Active Protocol: Document 05/23/23 08:35 AB (Rec: 05/23/23 09:44 AB [id number]) Current Condition History of Current Condition Onset Date 01/13/23 History of Current Condition Pt reports she passed out after giving blood and fell, which caused a right clavicular fracture. She was in a sling for about 2 weeks, then was instructed to do minimal activity, but avoid reaching up or lifting anything. Currently, she reports a tightness on the right side of her chest near her clavicle, pain/tension on the right side of her neck. She also states she started to get carpal tunnel from wearing the sling, as she sometimes gets pain down to her arm, and was given carpal tunnel exercises. The pt states she was instructed by her doctor to only perform stretching for her right arm. She is right hand dominant. Future Testing and Treatments Planned 04/05/23 ortho follow up Treatment Goals Patient/Caregiver Goals To be able to perform ADLs, IADLs and recreational activities Current Functional Impairments (Reported) Functional Limitations- ADL's Able to perform all ADLs Functional Limitations- Work/School Retired Functional Limitations- Recreation/ Is able to perform all ADLs Hobbies and IADLs but becomes sore in her shoulder afterward Functional Limitations- Other Still difficult to lift heavier items (ex: cat iron pot) PT-OP-C Subjective Start: 03/29/23 09:19 Freq: Status: Active Protocol: Document 06/02/23 09:07 SP (Rec: 06/02/23 10:21 SP [id number]) OP-PT Subjective Patient Comments Patient Comments Pt reports muscle little tired after tx but pleased with ROM and strength gaining. She stated hasnt' purchased weights for home to perform HEP carryover, has been busy with her and spouse appts. She states does multiple trips with groceries so not to heavy if needed bringing into home. She is compliant with AROM HEP due to not PT-OP-J Posture/Palpation/Skin Start: 03/29/23 09:19 Freq: Status: Active Protocol: Document 05/23/23 09:44 AB (Rec: 05/23/23 09:44 AB [id number]) Posture Evaluation Position Sitting T-Spine Posture Increased Kyphosis Shoulder Posture (L) Elevated PT-OP-K Range of Motion Start: 03/29/23 09:19 Freq: Status: Active Protocol: Document 05/23/23 08:35 AB (Rec: 05/23/23 09:44 AB [id number]) Cervical Spine Range of Motion Cervical Spine Active Degrees Testing Position Sitting Flexion 35 Extension 60 Rotation Left 54 Rotation Right 65 Lateral Flexion Left 25 Lateral Flexion Right 35 ROM Limitations Soft Tissue Tightness Comments Denies pain with all motions Shoulder Goniometric Range of Motion Shoulder Right Active Shoulder ROM WFL Yes Testing Position Sitting Flexion 144 Abduction 146 External Rotation at 0 degrees Abduction 72 Internal Rotation Behind Back (text) T10 Comments Functional ER: C6 Denies pain but feels like she is straining more compared to her right Left Active Shoulder ROM WFL Yes Testing Position Sitting Flexion 150 Abduction 160 External Rotation at 0 degrees Abduction 75 Internal Rotation Behind Back (text) T10 Comments Functional ER: T3 PT-OP-M Strength Start: 03/29/23 09:19 Freq: Status: Active Protocol: Document 05/23/23 08:35 AB (Rec: 05/23/23 09:44 AB [id number]) Shoulder Strength Shoulder Manual Muscle Testing Right Flexion 4- Good- Extension 4+ Good+ Abduction (C5) 4 Good External Rotation 4 Good Internal Rotation 4+ Good+ Comments Pain with flexion Left Flexion 5 Normal Extension 5 Normal Abduction (C5) 4+ Good+ External Rotation 5 Normal Internal Rotation 5 Normal Elbow/Forearm Strength Elbow and Forearm Manual Muscle Testing Right Flexion (C6) 5 Normal Extension (C7) 5 Normal Left Flexion (C6) 5 Normal Extension (C7) 5 Normal PT-OP-Q Treatments Start: 03/29/23 09:19 Freq: Status: Active Protocol: Document 06/02/23 09:07 SP (Rec: 06/02/23 10:21 SP [id number]) Cardio Equipment Recumbent Elliptical (Biodex) Duration (Minutes) 6 Resistance 3 Seat Position 4 (closest) Other 50 SPM, UBE not available Therapeutic Exercises Supine Exercises Snow angels on 1/2 foam roller Supine Exercise Name HEP reviewed: pec stretch, FF, snow angle Side bilateral Resistance AROM tolerant- if want for scap/UE ROM Equipment Used 1/2 foam roller along spine ( noodle home), pillow under head Reps/Minutes x5 Comments cues for painfree ROM fluid slow movement decrease shoulder/scap tension Cervical rotation Supine Exercise Name verbal she likes and performs before gets up Reps/Minutes x5 reps each side Sidelying Exercises open book Sidelying Exercise Name open book (long arm) verbal review Side right Equipment Used HEP Comments review perform next Sitting Exercises UT, LS, scalene stretch Sitting Exercise Name UT/LS- verbal review 06/02 Side right Resistance pt states PRN needed Reps/Minutes 2 x 30s Comments chin tuck, w/ chair hold for R shoulder stabilization Standing Exercises Tricep Standing Exercise Name Hep Reviewed Equipment Used TB [place]> green #3 Reps/Minutes 2x15 Comments cued close and elbows tucked at side, elongated posture Bicep curls Standing Exercise Name Hammer curls- HEP reviewed Side bilateral Resistance 5# DBs, TB #2 orange (home use ) Reps/Minutes 2x10 DB, x10 TB Comments cued close and elbows tucked at side, elongated posture Cheerleaders Standing Exercise Name Horiz. ABD, Diagonals- hep reviewed Side bilateral Resistance peach TB Reps/Minutes 2x5 ea Comments cued slower pacing Front and lat raises Standing Exercise Name front, scap, lat raises- HEP reviewed Side bilateral Resistance 2# DBs Equipment Used mirror Reps/Minutes 2x10 Comments cued elongated posture, neutral CS retraction PT-OP-T Assessment and Plan Start: 03/29/23 09:19 Freq: Status: Active Protocol: Document 06/02/23 09:07 SP (Rec: 06/02/23 10:21 SP [id number]) Physical Therapy Assessment Goals Seven Impairment Patient questionnaire Short Term Goal (STG) Pt's QuickDASH score to improve to 50% or better and NDI score to improve to 14/50 or better to demonstrate improving symptoms for an improved QOL. STG Duration 4 Prison Goal (LTG) Pt's QuickDASH score to improve to 30% or better and NDI score to improve to 4/50 or better to demonstrate improving symptoms for an improved QOL. LTG Duration 8 Six Impairment C spine AROM deficits Short Term Goal (STG) Pt's cervical spine left lateral flexion AROM to improve to 25 degrees or better to show improving ROM in order to improve ability to perform ADLs and IADLs. STG Duration 4 Nut Roaster Goal (LTG) Pt's cervical spine left lateral flexion AROM to improve to 30 degrees or better to show improving ROM in order to improve ability to perform ADLs and IADLs. Five Impairment C spine AROM deficits Short Term Goal (STG) Pt's cervical spine left rotation AROM to improve to 50 degrees or better to show improving ROM in order to improve ability to perform ADLs and IADLs. STG Duration 4 Nut Roaster Goal (LTG) Pt's cervical spine left rotation AROM to improve to 55 degrees or better to show improving ROM in order to improve ability to perform ADLs and IADLs. LTG Duration 8 Four Impairment Shoulder AROM deficits Short Term Goal (STG) Pt to improve shoulder functional IR AROM to L1 or better to show improving ROM in order to improve ability to perform ADLs and IADLs. STG Duration 4 Prison Goal (LTG) Pt to improve shoulder functional IR AROM to T10 or better to show improving ROM in order to improve ability to perform ADLs and IADLs. LTG Duration 8 Three Impairment Shoulder AROM deficits Short Term Goal (STG) Pt to improve shoulder functional ER AROM to C7 or better to show improving ROM in order to improve ability to perform ADLs and IADLs. STG Duration 4 Nut Roaster Goal (LTG) Pt to improve shoulder functional ER AROM to T3 or better to show improving ROM in order to improve ability to perform ADLs and IADLs. LTG Duration 8 Two Impairment Shoulder AROM deficits Short Term Goal (STG) Pt to improve shoulder ABD AROM to 110 degrees or better to show improving ROM in order to improve ability to perform ADLs and IADLs. STG Duration 4 Nut Roaster Goal (LTG) Pt to improve shoulder ABD AROM to 160 degrees or better to show improving ROM in order to improve ability to perform ADLs and IADLs. LTG Duration 8 One Impairment Shoulder AROM deficits Short Term Goal (STG) Pt to improve shoulder flexion AROM to 120 degrees or better to show improving ROM in order to improve ability to perform ADLs and IADLs. STG Duration 4 Prison Goal (LTG) Pt to improve shoulder flexion AROM to 150 degrees or better to show improving ROM in order to improve ability to perform ADLs and IADLs. LTG Duration 8 Assessment Summary Assessment Pt good muscular effort no pain reported during ther ex. Cues as needed for elongated posturing and eccentric control during TB ex. Provided HOs and TBs for home use vs purchasing hand wts with reports similar muscle tiring and strength felt end tx. Pt reports pleased with PT gains and unsure how long will need to continue. Physical Therapy Plan Frequency and Duration Frequency of Treatment 2x/Week Duration of treatment (weeks) 6 Plan of Care Start Date 05/23/23 Plan of Care End Date 07/04/23 Therapeutic Interventions Therapeutic Interventions Home Exercise Program,Joint Mobilizations,Manual Therapy, Neuromuscular Re-education, Patient/Caregiver Education, Self-Care/Home Management,Soft Tissue Mobilization,Taping, Therapeutic Activities, Therapeutic Exercises Modalities Cold Pack/Ice Massage,Electric Stimulation,Hot Packs Next Visit Focus/Plan Next Note Type Treatment Note Next Visit Plan Recheck goal progression and feedback to pt porgress making if need utilize all scheduled visit. POC: Continue progressing UE strengthening exercises to improve load tolerance and incorporate functional activities assimulate for home ADLs.
--- NOTE | 2023-06-06 12:50 | PT.OTN ---
Current Diagnoses Nondisplaced fracture of shaft of right clavicle, initial encounter for closed fracture (06/06/23) Physical Therapy Treatment Note PT-OP-A Visit Information Start: 03/29/23 09:19 Freq: Status: Active Protocol: Document 06/06/23 09:08 NM (Rec: 06/06/23 09:46 NM [id number]) Out-Patient Physical Therapy Visit Information Visit Information Visit Type Treatment Note Visit Start Time 09:00 Visit Stop Time 09:45 Total Visit Minutes 45 Visit Number 16 PT-OP-B Current Condition Start: 03/29/23 09:19 Freq: Status: Active Protocol: Document 05/23/23 08:35 AB (Rec: 05/23/23 09:44 AB [id number]) Current Condition History of Current Condition Onset Date 01/13/23 History of Current Condition Pt reports she passed out after giving blood and fell, which caused a right clavicular fracture. She was in a sling for about 2 weeks, then was instructed to do minimal activity, but avoid reaching up or lifting anything. Currently, she reports a tightness on the right side of her chest near her clavicle, pain/tension on the right side of her neck. She also states she started to get carpal tunnel from wearing the sling, as she sometimes gets pain down to her arm, and was given carpal tunnel exercises. The pt states she was instructed by her doctor to only perform stretching for her right arm. She is right hand dominant. Future Testing and Treatments Planned 04/05/23 ortho follow up Treatment Goals Patient/Caregiver Goals To be able to perform ADLs, IADLs and recreational activities Current Functional Impairments (Reported) Functional Limitations- ADL's Able to perform all ADLs Functional Limitations- Work/School Retired Functional Limitations- Recreation/ Is able to perform all ADLs Hobbies and IADLs but becomes sore in her shoulder afterward Functional Limitations- Other Still difficult to lift heavier items (ex: cat iron pot) PT-OP-C Subjective Start: 03/29/23 09:19 Freq: Status: Active Protocol: Document 06/06/23 09:08 NM (Rec: 06/06/23 09:46 NM [id number]) OP-PT Subjective Patient Comments Patient Comments Pt reports that she is sore from the weekend due to raking and using the leaf blower. Reports compliance with HEP; bought 5# weights for HEP. Patient Reported Progress Improving PT-OP-J Posture/Palpation/Skin Start: 03/29/23 09:19 Freq: Status: Active Protocol: Document 05/23/23 09:44 AB (Rec: 05/23/23 09:44 AB [id number]) Posture Evaluation Position Sitting T-Spine Posture Increased Kyphosis Shoulder Posture (L) Elevated PT-OP-K Range of Motion Start: 03/29/23 09:19 Freq: Status: Active Protocol: Document 05/23/23 08:35 AB (Rec: 05/23/23 09:44 AB [id number]) Cervical Spine Range of Motion Cervical Spine Active Degrees Testing Position Sitting Flexion 35 Extension 60 Rotation Left 54 Rotation Right 65 Lateral Flexion Left 25 Lateral Flexion Right 35 ROM Limitations Soft Tissue Tightness Comments Denies pain with all motions Shoulder Goniometric Range of Motion Shoulder Right Active Shoulder ROM WFL Yes Testing Position Sitting Flexion 144 Abduction 146 External Rotation at 0 degrees Abduction 72 Internal Rotation Behind Back (text) T10 Comments Functional ER: C6 Denies pain but feels like she is straining more compared to her right Left Active Shoulder ROM WFL Yes Testing Position Sitting Flexion 150 Abduction 160 External Rotation at 0 degrees Abduction 75 Internal Rotation Behind Back (text) T10 Comments Functional ER: T3 PT-OP-M Strength Start: 03/29/23 09:19 Freq: Status: Active Protocol: Document 05/23/23 08:35 AB (Rec: 05/23/23 09:44 AB [id number]) Shoulder Strength Shoulder Manual Muscle Testing Right Flexion 4- Good- Extension 4+ Good+ Abduction (C5) 4 Good External Rotation 4 Good Internal Rotation 4+ Good+ Comments Pain with flexion Left Flexion 5 Normal Extension 5 Normal Abduction (C5) 4+ Good+ External Rotation 5 Normal Internal Rotation 5 Normal Elbow/Forearm Strength Elbow and Forearm Manual Muscle Testing Right Flexion (C6) 5 Normal Extension (C7) 5 Normal Left Flexion (C6) 5 Normal Extension (C7) 5 Normal PT-OP-Q Treatments Start: 03/29/23 09:19 Freq: Status: Active Protocol: Document 06/06/23 09:08 NM (Rec: 06/06/23 09:46 NM [id number]) Cardio Equipment Upper Body Ergometer (UBE) Duration (Minutes) 6 Height 2.5 Other 3' fwd, 3' bwd Therapeutic Exercises Sitting Exercises UT, LS, scalene stretch Sitting Exercise Name UT/LS Side right Reps/Minutes 2x30 Comments chin tuck Standing Exercises Tricep Equipment Used orange tb Reps/Minutes 2x15 Bicep curls Standing Exercise Name Hammer curls Side bilateral Resistance 5# db Equipment Used mirror for visual cues Reps/Minutes 2x10 Comments cues for chin tuck, breathing Cheerleaders Standing Exercise Name Horiz. ABD, Diagonals Side bilateral Resistance [place] green TB Reps/Minutes 2x5 Front and lat raises Standing Exercise Name front, scap, lat raises Side bilateral Resistance 3# db Equipment Used mirror Reps/Minutes 2x10 ea Other Exercises Baez carries Side bilateral Resistance 15# DB Reps/Minutes 2x 112' ea Comments performs well but fatigues Therapeutic Activity Therapeutic Activity Crate Lifting Reps/Minutes 8' (about 10 carries) Comments To simulate lifting and carrying water to/from the car , pt lifted a crate with 30# plates from a height about 18 from the ground to about 36 from the ground, carrying the crate about 8 feet, before lifting the crate and returning the crate to the starting height. Educated pt on performing a semi-squat prior to lifting the crate in order to offset load on arms and promote better body mechanics. Pt took about 30 break between carries. PT-OP-T Assessment and Plan Start: 03/29/23 09:19 Freq: Status: Active Protocol: Document 06/06/23 09:08 NM (Rec: 06/06/23 09:46 NM [id number]) Physical Therapy Assessment Goals Seven Impairment Patient questionnaire Short Term Goal (STG) Pt's QuickDASH score to improve to 50% or better and NDI score to improve to 14/50 or better to demonstrate improving symptoms for an improved QOL. STG Duration 4 Snf Goal (LTG) Pt's QuickDASH score to improve to 30% or better and NDI score to improve to 4/50 or better to demonstrate improving symptoms for an improved QOL. LTG Duration 8 Six Impairment C spine AROM deficits Short Term Goal (STG) Pt's cervical spine left lateral flexion AROM to improve to 25 degrees or better to show improving ROM in order to improve ability to perform ADLs and IADLs. STG Duration 4 Snf Goal (LTG) Pt's cervical spine left lateral flexion AROM to improve to 30 degrees or better to show improving ROM in order to improve ability to perform ADLs and IADLs. Five Impairment C spine AROM deficits Short Term Goal (STG) Pt's cervical spine left rotation AROM to improve to 50 degrees or better to show improving ROM in order to improve ability to perform ADLs and IADLs. STG Duration 4 Binder Operator Goal (LTG) Pt's cervical spine left rotation AROM to improve to 55 degrees or better to show improving ROM in order to improve ability to perform ADLs and IADLs. LTG Duration 8 Four Impairment Shoulder AROM deficits Short Term Goal (STG) Pt to improve shoulder functional IR AROM to L1 or better to show improving ROM in order to improve ability to perform ADLs and IADLs. STG Duration 4 Binder Operator Goal (LTG) Pt to improve shoulder functional IR AROM to T10 or better to show improving ROM in order to improve ability to perform ADLs and IADLs. LTG Duration 8 Three Impairment Shoulder AROM deficits Short Term Goal (STG) Pt to improve shoulder functional ER AROM to C7 or better to show improving ROM in order to improve ability to perform ADLs and IADLs. STG Duration 4 Binder Operator Goal (LTG) Pt to improve shoulder functional ER AROM to T3 or better to show improving ROM in order to improve ability to perform ADLs and IADLs. LTG Duration 8 Two Impairment Shoulder AROM deficits Short Term Goal (STG) Pt to improve shoulder ABD AROM to 110 degrees or better to show improving ROM in order to improve ability to perform ADLs and IADLs. STG Duration 4 Binder Operator Goal (LTG) Pt to improve shoulder ABD AROM to 160 degrees or better to show improving ROM in order to improve ability to perform ADLs and IADLs. LTG Duration 8 One Impairment Shoulder AROM deficits Short Term Goal (STG) Pt to improve shoulder flexion AROM to 120 degrees or better to show improving ROM in order to improve ability to perform ADLs and IADLs. STG Duration 4 Snf Goal (LTG) Pt to improve shoulder flexion AROM to 150 degrees or better to show improving ROM in order to improve ability to perform ADLs and IADLs. LTG Duration 8 Assessment Summary Assessment Pt tolerated treatment well with good effort and good endurance. Continued UE and scapular strengthening today, will progress exercises at next session. Emphasized lifting and carrying today as pt is most concerned about being able to carry 40# water bottles for her . Pt is able to perform crate carries with 30#, lifting and carrying the crate between 18 and 36 heights approximately 8 ft; educated on performing a small squat while lifting to prevent strain on UE/back and promote mechanical advantage. Pt is able to perform several repetitions with moderate cueing for form. Depending on pt's level of fatigue at next session, will progress weighted carry. Pt would continue to benefit from skilled PT to address impairments in strength, mobility, and to maximize activity tolerance prior to discharge. Physical Therapy Plan Frequency and Duration Frequency of Treatment 2x/Week Duration of treatment (weeks) 6 Plan of Care Start Date 05/23/23 Plan of Care End Date 07/04/23 Therapeutic Interventions Therapeutic Interventions Home Exercise Program,Joint Mobilizations,Manual Therapy, Neuromuscular Re-education, Patient/Caregiver Education, Self-Care/Home Management,Soft Tissue Mobilization,Taping, Therapeutic Activities, Therapeutic Exercises Modalities Cold Pack/Ice Massage,Electric Stimulation,Hot Packs Next Visit Focus/Plan Next Note Type Treatment Note Next Visit Plan Continue progressing UE exercises, add new exercises to improve load tolerance, progress lifting/carrying loads (attempt 35#-40# depending on tolerance)
--- NOTE | 2023-06-09 09:59 | PT.OTN ---
Current Diagnoses Nondisplaced fracture of shaft of right clavicle, initial encounter for closed fracture (06/09/23) Physical Therapy Treatment Note PT-OP-A Visit Information Start: 03/29/23 09:19 Freq: Status: Active Protocol: Document 06/09/23 09:04 NM (Rec: 06/09/23 09:57 NM [id number]) Out-Patient Physical Therapy Visit Information Visit Information Visit Type Treatment Note Visit Note 12/01 after PN Visit Start Time 09:01 Visit Stop Time 09:45 Total Visit Minutes 44 Visit Number 17 Number of TRANSPORTATION BROKER Visits 1 Evaluation Information Evaluation Date 03/29/23 PT-OP-B Current Condition Start: 03/29/23 09:19 Freq: Status: Active Protocol: Document 05/23/23 08:35 AB (Rec: 05/23/23 09:44 AB [id number]) Current Condition History of Current Condition Onset Date 01/13/23 History of Current Condition Pt reports she passed out after giving blood and fell, which caused a right clavicular fracture. She was in a sling for about 2 weeks, then was instructed to do minimal activity, but avoid reaching up or lifting anything. Currently, she reports a tightness on the right side of her chest near her clavicle, pain/tension on the right side of her neck. She also states she started to get carpal tunnel from wearing the sling, as she sometimes gets pain down to her arm, and was given carpal tunnel exercises. The pt states she was instructed by her doctor to only perform stretching for her right arm. She is right hand dominant. Future Testing and Treatments Planned 04/05/23 ortho follow up Treatment Goals Patient/Caregiver Goals To be able to perform ADLs, IADLs and recreational activities Current Functional Impairments (Reported) Functional Limitations- ADL's Able to perform all ADLs Functional Limitations- Work/School Retired Functional Limitations- Recreation/ Is able to perform all ADLs Hobbies and IADLs but becomes sore in her shoulder afterward Functional Limitations- Other Still difficult to lift heavier items (ex: cat iron pot) PT-OP-C Subjective Start: 03/29/23 09:19 Freq: Status: Active Protocol: Document 06/09/23 09:04 NM (Rec: 06/09/23 09:57 NM [id number]) OP-PT Subjective Patient Comments Patient Comments Pt reports that she is doing well and has been performing her exercises. She had mild soreness after the last session but it resolved within a day, and she has had no further issues. PT-OP-J Posture/Palpation/Skin Start: 03/29/23 09:19 Freq: Status: Active Protocol: Document 05/23/23 09:44 AB (Rec: 05/23/23 09:44 AB [id number]) Posture Evaluation Position Sitting T-Spine Posture Increased Kyphosis Shoulder Posture (L) Elevated PT-OP-K Range of Motion Start: 03/29/23 09:19 Freq: Status: Active Protocol: Document 05/23/23 08:35 AB (Rec: 05/23/23 09:44 AB [id number]) Cervical Spine Range of Motion Cervical Spine Active Degrees Testing Position Sitting Flexion 35 Extension 60 Rotation Left 54 Rotation Right 65 Lateral Flexion Left 25 Lateral Flexion Right 35 ROM Limitations Soft Tissue Tightness Comments Denies pain with all motions Shoulder Goniometric Range of Motion Shoulder Right Active Shoulder ROM WFL Yes Testing Position Sitting Flexion 144 Abduction 146 External Rotation at 0 degrees Abduction 72 Internal Rotation Behind Back (text) T10 Comments Functional ER: C6 Denies pain but feels like she is straining more compared to her right Left Active Shoulder ROM WFL Yes Testing Position Sitting Flexion 150 Abduction 160 External Rotation at 0 degrees Abduction 75 Internal Rotation Behind Back (text) T10 Comments Functional ER: T3 PT-OP-M Strength Start: 03/29/23 09:19 Freq: Status: Active Protocol: Document 05/23/23 08:35 AB (Rec: 05/23/23 09:44 AB [id number]) Shoulder Strength Shoulder Manual Muscle Testing Right Flexion 4- Good- Extension 4+ Good+ Abduction (C5) 4 Good External Rotation 4 Good Internal Rotation 4+ Good+ Comments Pain with flexion Left Flexion 5 Normal Extension 5 Normal Abduction (C5) 4+ Good+ External Rotation 5 Normal Internal Rotation 5 Normal Elbow/Forearm Strength Elbow and Forearm Manual Muscle Testing Right Flexion (C6) 5 Normal Extension (C7) 5 Normal Left Flexion (C6) 5 Normal Extension (C7) 5 Normal PT-OP-Q Treatments Start: 03/29/23 09:19 Freq: Status: Active Protocol: Document 06/09/23 09:04 NM (Rec: 06/09/23 09:57 NM [id number]) Cardio Equipment Upper Body Ergometer (UBE) Duration (Minutes) 6 Other 3' fwd, 3' bwd Therapeutic Exercises Sitting Exercises UT, LS, scalene stretch Sitting Exercise Name UT/LS Side right Reps/Minutes 2x30 Comments chin tuck Standing Exercises PNF Standing Exercise Name D2 flex, D1 ext Side right Resistance green tb (lvl 3) Reps/Minutes 2x12 Comments cues for trunk rotation, eyes to follow hands, for strengthening Bicep curls Standing Exercise Name Hammer curls Side bilateral Resistance 5# db Equipment Used mirror for visual cues Reps/Minutes 2x10 Comments cues for chin tuck, breathing Front and lat raises Standing Exercise Name front, scap, lat raises Side bilateral Resistance 3# db Equipment Used mirror Reps/Minutes 10 ea Comments cued elongated posture, neutral CS retraction Other Exercises Baez carries Other Exercise Name 1. 90/90dg OH carry, 2. baez carry Side bilateral Resistance 15# DB Reps/Minutes 2x 112' ea Comments decreased fatigue today Therapeutic Activity Therapeutic Activity Crate Lifting Reps/Minutes 10' (about 12 carries) Comments To simulate lifting and carrying water to/from the car , pt lifted a crate with 35# plates from a height about 18 from the ground to about 36 from the ground, carrying the crate about 8 feet, before lifting the crate and returning the crate to the starting height. Educated pt on performing a semi-squat prior to lifting the crate in order to offset load on arms and promote better body mechanics. Pt took about 30 break between carries. PT-OP-T Assessment and Plan Start: 03/29/23 09:19 Freq: Status: Active Protocol: Document 06/09/23 09:04 NM (Rec: 06/09/23 09:57 NM [id number]) Physical Therapy Assessment Goals Seven Impairment Patient questionnaire Short Term Goal (STG) Pt's QuickDASH score to improve to 50% or better and NDI score to improve to 14/50 or better to demonstrate improving symptoms for an improved QOL. STG Duration 4 Senior Living Goal (LTG) Pt's QuickDASH score to improve to 30% or better and NDI score to improve to 4/50 or better to demonstrate improving symptoms for an improved QOL. LTG Duration 8 Six Impairment C spine AROM deficits Short Term Goal (STG) Pt's cervical spine left lateral flexion AROM to improve to 25 degrees or better to show improving ROM in order to improve ability to perform ADLs and IADLs. STG Duration 4 Senior Living Goal (LTG) Pt's cervical spine left lateral flexion AROM to improve to 30 degrees or better to show improving ROM in order to improve ability to perform ADLs and IADLs. Five Impairment C spine AROM deficits Short Term Goal (STG) Pt's cervical spine left rotation AROM to improve to 50 degrees or better to show improving ROM in order to improve ability to perform ADLs and IADLs. STG Duration 4 Dietician Goal (LTG) Pt's cervical spine left rotation AROM to improve to 55 degrees or better to show improving ROM in order to improve ability to perform ADLs and IADLs. LTG Duration 8 Four Impairment Shoulder AROM deficits Short Term Goal (STG) Pt to improve shoulder functional IR AROM to L1 or better to show improving ROM in order to improve ability to perform ADLs and IADLs. STG Duration 4 Senior Living Goal (LTG) Pt to improve shoulder functional IR AROM to T10 or better to show improving ROM in order to improve ability to perform ADLs and IADLs. LTG Duration 8 Three Impairment Shoulder AROM deficits Short Term Goal (STG) Pt to improve shoulder functional ER AROM to C7 or better to show improving ROM in order to improve ability to perform ADLs and IADLs. STG Duration 4 Dietician Goal (LTG) Pt to improve shoulder functional ER AROM to T3 or better to show improving ROM in order to improve ability to perform ADLs and IADLs. LTG Duration 8 Two Impairment Shoulder AROM deficits Short Term Goal (STG) Pt to improve shoulder ABD AROM to 110 degrees or better to show improving ROM in order to improve ability to perform ADLs and IADLs. STG Duration 4 Dietician Goal (LTG) Pt to improve shoulder ABD AROM to 160 degrees or better to show improving ROM in order to improve ability to perform ADLs and IADLs. LTG Duration 8 One Impairment Shoulder AROM deficits Short Term Goal (STG) Pt to improve shoulder flexion AROM to 120 degrees or better to show improving ROM in order to improve ability to perform ADLs and IADLs. STG Duration 4 Senior Living Goal (LTG) Pt to improve shoulder flexion AROM to 150 degrees or better to show improving ROM in order to improve ability to perform ADLs and IADLs. LTG Duration 8 Assessment Summary Assessment Pt tolerated treatment well and demos good effort during exercises today, no pain. Progressed diagonal tb exercises to UE PNF patterns for multi-plane strengthening and rotational movement. Pt able to perform exercise with fair neuromuscular control, but required frequent cues for proper execution during rotational aspect. Continued with lifting/carrying today in order to simulate pt having to carry 's water bottles; now up to 35#, which was fatiguing but pt able to perform increased reps while demonstrating good body mechanics and upright posture. Will continue to progress UE/ scapular strengthening and resisted carrying activities in future sessions. Pt would benefit from skilled PT for strengthening and to improve activity tolerance in order to return to PLOF. Physical Therapy Plan Frequency and Duration Frequency of Treatment 2x/Week Duration of treatment (weeks) 6 Plan of Care Start Date 05/23/23 Plan of Care End Date 07/04/23 Therapeutic Interventions Therapeutic Interventions Home Exercise Program,Joint Mobilizations,Manual Therapy, Neuromuscular Re-education, Patient/Caregiver Education, Self-Care/Home Management,Soft Tissue Mobilization,Taping, Therapeutic Activities, Therapeutic Exercises Modalities Cold Pack/Ice Massage,Electric Stimulation,Hot Packs Next Visit Focus/Plan Next Note Type Treatment Note Next Visit Plan Continue progressing UE exercises, add new exercises to improve load tolerance, progress lifting/carrying loads (attempt 35#-40# depending on tolerance)
--- NOTE | 2023-06-13 11:11 | PT.OTN ---
Current Diagnoses Nondisplaced fracture of shaft of right clavicle, initial encounter for closed fracture (06/13/23) Physical Therapy Treatment Note PT-OP-A Visit Information Start: 03/29/23 09:19 Freq: Status: Active Protocol: Document 06/13/23 09:05 NM (Rec: 06/13/23 09:45 NM [id number]) Out-Patient Physical Therapy Visit Information Visit Information Visit Type Treatment Note Visit Note 01/01 after PN Visit Start Time 09:01 Visit Stop Time 09:44 Total Visit Minutes 43 Visit Number 18 PT-OP-B Current Condition Start: 03/29/23 09:19 Freq: Status: Active Protocol: Document 05/23/23 08:35 AB (Rec: 05/23/23 09:44 AB [id number]) Current Condition History of Current Condition Onset Date 01/13/23 History of Current Condition Pt reports she passed out after giving blood and fell, which caused a right clavicular fracture. She was in a sling for about 2 weeks, then was instructed to do minimal activity, but avoid reaching up or lifting anything. Currently, she reports a tightness on the right side of her chest near her clavicle, pain/tension on the right side of her neck. She also states she started to get carpal tunnel from wearing the sling, as she sometimes gets pain down to her arm, and was given carpal tunnel exercises. The pt states she was instructed by her doctor to only perform stretching for her right arm. She is right hand dominant. Future Testing and Treatments Planned 04/05/23 ortho follow up Treatment Goals Patient/Caregiver Goals To be able to perform ADLs, IADLs and recreational activities Current Functional Impairments (Reported) Functional Limitations- ADL's Able to perform all ADLs Functional Limitations- Work/School Retired Functional Limitations- Recreation/ Is able to perform all ADLs Hobbies and IADLs but becomes sore in her shoulder afterward Functional Limitations- Other Still difficult to lift heavier items (ex: cat iron pot) PT-OP-C Subjective Start: 03/29/23 09:19 Freq: Status: Active Protocol: Document 06/13/23 09:05 NM (Rec: 06/13/23 09:45 NM [id number]) OP-PT Subjective Patient Comments Patient Comments Pt reports that she is doing well. She has no shoulder pain ; however, she feels tightness in the near the R pec muscle. Patient Reported Progress Improving PT-OP-J Posture/Palpation/Skin Start: 03/29/23 09:19 Freq: Status: Active Protocol: Document 05/23/23 09:44 AB (Rec: 05/23/23 09:44 AB [id number]) Posture Evaluation Position Sitting T-Spine Posture Increased Kyphosis Shoulder Posture (L) Elevated PT-OP-K Range of Motion Start: 03/29/23 09:19 Freq: Status: Active Protocol: Document 05/23/23 08:35 AB (Rec: 05/23/23 09:44 AB [id number]) Cervical Spine Range of Motion Cervical Spine Active Degrees Testing Position Sitting Flexion 35 Extension 60 Rotation Left 54 Rotation Right 65 Lateral Flexion Left 25 Lateral Flexion Right 35 ROM Limitations Soft Tissue Tightness Comments Denies pain with all motions Shoulder Goniometric Range of Motion Shoulder Right Active Shoulder ROM WFL Yes Testing Position Sitting Flexion 144 Abduction 146 External Rotation at 0 degrees Abduction 72 Internal Rotation Behind Back (text) T10 Comments Functional ER: C6 Denies pain but feels like she is straining more compared to her right Left Active Shoulder ROM WFL Yes Testing Position Sitting Flexion 150 Abduction 160 External Rotation at 0 degrees Abduction 75 Internal Rotation Behind Back (text) T10 Comments Functional ER: T3 PT-OP-M Strength Start: 03/29/23 09:19 Freq: Status: Active Protocol: Document 05/23/23 08:35 AB (Rec: 05/23/23 09:44 AB [id number]) Shoulder Strength Shoulder Manual Muscle Testing Right Flexion 4- Good- Extension 4+ Good+ Abduction (C5) 4 Good External Rotation 4 Good Internal Rotation 4+ Good+ Comments Pain with flexion Left Flexion 5 Normal Extension 5 Normal Abduction (C5) 4+ Good+ External Rotation 5 Normal Internal Rotation 5 Normal Elbow/Forearm Strength Elbow and Forearm Manual Muscle Testing Right Flexion (C6) 5 Normal Extension (C7) 5 Normal Left Flexion (C6) 5 Normal Extension (C7) 5 Normal PT-OP-Q Treatments Start: 03/29/23 09:19 Freq: Status: Active Protocol: Document 06/13/23 09:05 NM (Rec: 06/13/23 09:45 NM [id number]) Cardio Equipment Upper Body Ergometer (UBE) Duration (Minutes) 3 Other 1.5' fwd, 1.5' bwd Therapeutic Exercises Sitting Exercises Cervical ROM towel strethc Sitting Exercise Name 1. lateral flex, 2. rot Side bilateral Equipment Used towel Reps/Minutes 2x30 ea UT, LS, scalene stretch Sitting Exercise Name UT/LS Side right Reps/Minutes 2x30 Comments chin tuck Standing Exercises Shoulder press Standing Exercise Name issued HEP Side bilateral Equipment Used 5# db Reps/Minutes 2x8 Comments W > Y press, cues for chin tuck PNF Standing Exercise Name D2 flex, D1 ext Side right Resistance green tb (lvl 3) Reps/Minutes 2x12 Comments cues for eyes to follow hands Corner pec stretch Standing Exercise Name 1. 90 deg, 2. pec min str Side right Equipment Used wall Reps/Minutes 2x30 Other Exercises Pallof Press Other Exercise Name for core stab, upright posture /chin tuck Side bilateral Resistance lvl 3 green tb Reps/Minutes x30 ea side Comments encourage core activation, prevent excess lordosis during lifts Baez carries Other Exercise Name 1. contralateral carry (1 UE OH, other by side) Side bilateral Resistance 8# db Reps/Minutes 2x112' ea Comments difficult and fatiguing; continue next time Therapeutic Activity Therapeutic Activity Crate Lifting Reps/Minutes 10' Comments To simulate lifting and carrying water to/from the car , pt lifted a bucket with 40# plates from a height about 18 from the ground to about 36 from the ground, carrying the bucket about 8 feet, before lifting the bucket and returning the crate to the starting height. Educated pt on performing a semi-squat prior to lifting the bucket in order to offset load on arms and promote better body mechanics. Pt took about 30 break between carries. PT-OP-T Assessment and Plan Start: 03/29/23 09:19 Freq: Status: Active Protocol: Document 06/13/23 09:05 NM (Rec: 06/13/23 09:45 NM [id number]) Physical Therapy Assessment Goals Seven Impairment Patient questionnaire Short Term Goal (STG) Pt's QuickDASH score to improve to 50% or better and NDI score to improve to 14/50 or better to demonstrate improving symptoms for an improved QOL. STG Duration 4 Mortgage Lender Goal (LTG) Pt's QuickDASH score to improve to 30% or better and NDI score to improve to 4/50 or better to demonstrate improving symptoms for an improved QOL. LTG Duration 8 Six Impairment C spine AROM deficits Short Term Goal (STG) Pt's cervical spine left lateral flexion AROM to improve to 25 degrees or better to show improving ROM in order to improve ability to perform ADLs and IADLs. STG Duration 4 Mortgage Lender Goal (LTG) Pt's cervical spine left lateral flexion AROM to improve to 30 degrees or better to show improving ROM in order to improve ability to perform ADLs and IADLs. Five Impairment C spine AROM deficits Short Term Goal (STG) Pt's cervical spine left rotation AROM to improve to 50 degrees or better to show improving ROM in order to improve ability to perform ADLs and IADLs. STG Duration 4 Mortgage Lender Goal (LTG) Pt's cervical spine left rotation AROM to improve to 55 degrees or better to show improving ROM in order to improve ability to perform ADLs and IADLs. LTG Duration 8 Four Impairment Shoulder AROM deficits Short Term Goal (STG) Pt to improve shoulder functional IR AROM to L1 or better to show improving ROM in order to improve ability to perform ADLs and IADLs. STG Duration 4 Mcfp Goal (LTG) Pt to improve shoulder functional IR AROM to T10 or better to show improving ROM in order to improve ability to perform ADLs and IADLs. LTG Duration 8 Three Impairment Shoulder AROM deficits Short Term Goal (STG) Pt to improve shoulder functional ER AROM to C7 or better to show improving ROM in order to improve ability to perform ADLs and IADLs. STG Duration 4 Mortgage Lender Goal (LTG) Pt to improve shoulder functional ER AROM to T3 or better to show improving ROM in order to improve ability to perform ADLs and IADLs. LTG Duration 8 Two Impairment Shoulder AROM deficits Short Term Goal (STG) Pt to improve shoulder ABD AROM to 110 degrees or better to show improving ROM in order to improve ability to perform ADLs and IADLs. STG Duration 4 Mortgage Lender Goal (LTG) Pt to improve shoulder ABD AROM to 160 degrees or better to show improving ROM in order to improve ability to perform ADLs and IADLs. LTG Duration 8 One Impairment Shoulder AROM deficits Short Term Goal (STG) Pt to improve shoulder flexion AROM to 120 degrees or better to show improving ROM in order to improve ability to perform ADLs and IADLs. STG Duration 4 Mortgage Lender Goal (LTG) Pt to improve shoulder flexion AROM to 150 degrees or better to show improving ROM in order to improve ability to perform ADLs and IADLs. LTG Duration 8 Assessment Summary Assessment Pt tolerated tmt well with good effort today. She demos improved trunk and cervical rotation today during PNF patterns. Progressed strengthening exercises to more overhead activities including shoulder press. Pt demos need for increased for core activation during lifting activities, therefore initiated pallof press for core strengthening. Progressed bucket carries to 40# to simulate carrying water bottles; pt tolerated increased load well and was able to perform lifts/carries with safe body mechanics. Pt is progressing well toward meeting her goals and will likely meet most of them by discharge. She continues to be limited in cervical rotation and lateral flexion ROM, but is improved since initial evaluation. HEP updated to include stretches for cervical ROM and shoulder press. Pt would benefit from skilled PT to address ROM deficits, strength deficits, and to promote progressive loading for return to PLOF. Physical Therapy Plan Frequency and Duration Frequency of Treatment 2x/Week Duration of treatment (weeks) 6 Plan of Care Start Date 05/23/23 Plan of Care End Date 07/04/23 Therapeutic Interventions Therapeutic Interventions Home Exercise Program,Joint Mobilizations,Manual Therapy, Neuromuscular Re-education, Patient/Caregiver Education, Self-Care/Home Management,Soft Tissue Mobilization,Taping, Therapeutic Activities, Therapeutic Exercises Modalities Cold Pack/Ice Massage,Electric Stimulation,Hot Packs Next Visit Focus/Plan Next Note Type Treatment Note Next Visit Plan Continue progressing UE strengthening, load tolerance during lifting. Cervical ROM
--- NOTE | 2023-06-15 11:24 | PT.OTN ---
Current Diagnoses Nondisplaced fracture of shaft of right clavicle, initial encounter for closed fracture (06/15/23) Physical Therapy Treatment Note PT-OP-A Visit Information Start: 03/29/23 09:19 Freq: Status: Active Protocol: Document 06/15/23 09:52 NM (Rec: 06/15/23 10:53 NM [id number]) Out-Patient Physical Therapy Visit Information Visit Information Visit Type Treatment Note Visit Note 01/31 after PN Visit Start Time 09:46 Visit Stop Time 10:30 Total Visit Minutes 44 Visit Number 19 PT-OP-B Current Condition Start: 03/29/23 09:19 Freq: Status: Active Protocol: Document 05/23/23 08:35 AB (Rec: 05/23/23 09:44 AB [id number]) Current Condition History of Current Condition Onset Date 01/13/23 History of Current Condition Pt reports she passed out after giving blood and fell, which caused a right clavicular fracture. She was in a sling for about 2 weeks, then was instructed to do minimal activity, but avoid reaching up or lifting anything. Currently, she reports a tightness on the right side of her chest near her clavicle, pain/tension on the right side of her neck. She also states she started to get carpal tunnel from wearing the sling, as she sometimes gets pain down to her arm, and was given carpal tunnel exercises. The pt states she was instructed by her doctor to only perform stretching for her right arm. She is right hand dominant. Future Testing and Treatments Planned 04/05/23 ortho follow up Treatment Goals Patient/Caregiver Goals To be able to perform ADLs, IADLs and recreational activities Current Functional Impairments (Reported) Functional Limitations- ADL's Able to perform all ADLs Functional Limitations- Work/School Retired Functional Limitations- Recreation/ Is able to perform all ADLs Hobbies and IADLs but becomes sore in her shoulder afterward Functional Limitations- Other Still difficult to lift heavier items (ex: cat iron pot) PT-OP-C Subjective Start: 03/29/23 09:19 Freq: Status: Active Protocol: Document 06/15/23 09:52 NM (Rec: 06/15/23 10:53 NM [id number]) OP-PT Subjective Patient Comments Patient Comments Pt reports that she has been pretty active recently and does not report any pain or stiffness. She states that fell against the counter top in her house yesterday but was able to catch herself, no new pain or reported symptoms, only stiffness in neck and shoulders. PT-OP-J Posture/Palpation/Skin Start: 03/29/23 09:19 Freq: Status: Active Protocol: Document 05/23/23 09:44 AB (Rec: 05/23/23 09:44 AB [id number]) Posture Evaluation Position Sitting T-Spine Posture Increased Kyphosis Shoulder Posture (L) Elevated PT-OP-K Range of Motion Start: 03/29/23 09:19 Freq: Status: Active Protocol: Document 05/23/23 08:35 AB (Rec: 05/23/23 09:44 AB [id number]) Cervical Spine Range of Motion Cervical Spine Active Degrees Testing Position Sitting Flexion 35 Extension 60 Rotation Left 54 Rotation Right 65 Lateral Flexion Left 25 Lateral Flexion Right 35 ROM Limitations Soft Tissue Tightness Comments Denies pain with all motions Shoulder Goniometric Range of Motion Shoulder Right Active Shoulder ROM WFL Yes Testing Position Sitting Flexion 144 Abduction 146 External Rotation at 0 degrees Abduction 72 Internal Rotation Behind Back (text) T10 Comments Functional ER: C6 Denies pain but feels like she is straining more compared to her right Left Active Shoulder ROM WFL Yes Testing Position Sitting Flexion 150 Abduction 160 External Rotation at 0 degrees Abduction 75 Internal Rotation Behind Back (text) T10 Comments Functional ER: T3 PT-OP-M Strength Start: 03/29/23 09:19 Freq: Status: Active Protocol: Document 05/23/23 08:35 AB (Rec: 05/23/23 09:44 AB [id number]) Shoulder Strength Shoulder Manual Muscle Testing Right Flexion 4- Good- Extension 4+ Good+ Abduction (C5) 4 Good External Rotation 4 Good Internal Rotation 4+ Good+ Comments Pain with flexion Left Flexion 5 Normal Extension 5 Normal Abduction (C5) 4+ Good+ External Rotation 5 Normal Internal Rotation 5 Normal Elbow/Forearm Strength Elbow and Forearm Manual Muscle Testing Right Flexion (C6) 5 Normal Extension (C7) 5 Normal Left Flexion (C6) 5 Normal Extension (C7) 5 Normal PT-OP-Q Treatments Start: 03/29/23 09:19 Freq: Status: Active Protocol: Document 06/15/23 09:52 NM (Rec: 06/15/23 10:53 NM [id number]) Cardio Equipment Upper Body Ergometer (UBE) Duration (Minutes) 3 Other 1.5' fwd, 1.5' bwd Therapeutic Exercises Sitting Exercises Cervical ROM towel strethc Sitting Exercise Name 1. lateral flex, 2. rot Side bilateral Equipment Used towel Reps/Minutes 2x30 ea UT, LS, scalene stretch Sitting Exercise Name UT/LS Side right Reps/Minutes 2x30 Comments chin tuck Standing Exercises Push up plus Standing Exercise Name mini push up > scap protraction Side bilateral Equipment Used wall Reps/Minutes 1x10 Upright row Side bilateral Resistance 5# db Reps/Minutes 2x15 Comments cues for upright posture, core activation Shoulder press Standing Exercise Name W> Y Side bilateral Equipment Used 3# db Reps/Minutes 1x8 Comments cues for chin tuck, shldr flex Corner pec stretch Standing Exercise Name 1. 90 deg, 2. pec min str Side right Equipment Used wall Reps/Minutes 2x30 Cane shldr flex AAROM Reps/Minutes 2x15 Comments for UE stiffness today Manual Therapy Treatment Soft Tissue Mobilization neck Body Location UT, LS, SCM, Scalenes Mobilization Type Myofascial Release,Rolling, Sustained Pressure Intensity/Depth Moderate Body Position Hooklying Comments Limited soft tissue mobility today, tenderness of UT and scalenes PT-OP-T Assessment and Plan Start: 03/29/23 09:19 Freq: Status: Active Protocol: Document 06/15/23 09:52 NM (Rec: 06/15/23 10:53 NM [id number]) Physical Therapy Assessment Goals Seven Impairment Patient questionnaire Short Term Goal (STG) Pt's QuickDASH score to improve to 50% or better and NDI score to improve to 14/50 or better to demonstrate improving symptoms for an improved QOL. STG Duration 4 Fpc Goal (LTG) Pt's QuickDASH score to improve to 30% or better and NDI score to improve to 4/50 or better to demonstrate improving symptoms for an improved QOL. LTG Duration 8 Six Impairment C spine AROM deficits Short Term Goal (STG) Pt's cervical spine left lateral flexion AROM to improve to 25 degrees or better to show improving ROM in order to improve ability to perform ADLs and IADLs. STG Duration 4 Fpc Goal (LTG) Pt's cervical spine left lateral flexion AROM to improve to 30 degrees or better to show improving ROM in order to improve ability to perform ADLs and IADLs. Five Impairment C spine AROM deficits Short Term Goal (STG) Pt's cervical spine left rotation AROM to improve to 50 degrees or better to show improving ROM in order to improve ability to perform ADLs and IADLs. STG Duration 4 Gold Tooler Goal (LTG) Pt's cervical spine left rotation AROM to improve to 55 degrees or better to show improving ROM in order to improve ability to perform ADLs and IADLs. LTG Duration 8 Four Impairment Shoulder AROM deficits Short Term Goal (STG) Pt to improve shoulder functional IR AROM to L1 or better to show improving ROM in order to improve ability to perform ADLs and IADLs. STG Duration 4 Fpc Goal (LTG) Pt to improve shoulder functional IR AROM to T10 or better to show improving ROM in order to improve ability to perform ADLs and IADLs. LTG Duration 8 Three Impairment Shoulder AROM deficits Short Term Goal (STG) Pt to improve shoulder functional ER AROM to C7 or better to show improving ROM in order to improve ability to perform ADLs and IADLs. STG Duration 4 Fpc Goal (LTG) Pt to improve shoulder functional ER AROM to T3 or better to show improving ROM in order to improve ability to perform ADLs and IADLs. LTG Duration 8 Two Impairment Shoulder AROM deficits Short Term Goal (STG) Pt to improve shoulder ABD AROM to 110 degrees or better to show improving ROM in order to improve ability to perform ADLs and IADLs. STG Duration 4 Gold Tooler Goal (LTG) Pt to improve shoulder ABD AROM to 160 degrees or better to show improving ROM in order to improve ability to perform ADLs and IADLs. LTG Duration 8 One Impairment Shoulder AROM deficits Short Term Goal (STG) Pt to improve shoulder flexion AROM to 120 degrees or better to show improving ROM in order to improve ability to perform ADLs and IADLs. STG Duration 4 Gold Tooler Goal (LTG) Pt to improve shoulder flexion AROM to 150 degrees or better to show improving ROM in order to improve ability to perform ADLs and IADLs. LTG Duration 8 Assessment Summary Assessment Pt tolerated treatment fair. She presented with some UE and neck soreness after falling onto her arm on the countertop at home yesterday and due to cleaning. PT did not progress amount of resistance today, and tmt focused on mobility and endurance strengthening. Pt performed stretches of shoulder, chest, and cervical spine; ROM improved with repetition. Soft tissue mobilization of cervical spine to improve ROM and decrease soreness. Pt is interested in discharging soon; will assess and discuss with pt at next session (progress note). Pt would benefit from skilled PT to further maximize UE strength and mobility to return to PLOF. Physical Therapy Plan Frequency and Duration Frequency of Treatment 2x/Week Duration of treatment (weeks) 6 Plan of Care Start Date 05/23/23 Plan of Care End Date 07/04/23 Therapeutic Interventions Therapeutic Interventions Home Exercise Program,Joint Mobilizations,Manual Therapy, Neuromuscular Re-education, Patient/Caregiver Education, Self-Care/Home Management,Soft Tissue Mobilization,Taping, Therapeutic Activities, Therapeutic Exercises Modalities Cold Pack/Ice Massage,Electric Stimulation,Hot Packs Next Visit Focus/Plan Next Note Type Progress Note Next Visit Plan Cervical and UE ROM. Continue strengthening and progressing load tolerance
--- NOTE | 2023-06-20 12:12 | PT.OTN ---
Current Diagnoses Nondisplaced fracture of shaft of right clavicle, initial encounter for closed fracture (06/20/23) Physical Therapy Treatment Note PT-OP-A Visit Information Start: 03/29/23 09:19 Freq: Status: Active Protocol: Document 06/20/23 09:07 NM (Rec: 06/20/23 09:46 NM [id number]) Out-Patient Physical Therapy Visit Information Visit Information Visit Type Treatment Note Visit Note 03/03 after PN Visit Start Time 09:45 Visit Stop Time 10:28 Total Visit Minutes 43 Visit Number 20 PT-OP-B Current Condition Start: 03/29/23 09:19 Freq: Status: Active Protocol: Document 05/23/23 08:35 AB (Rec: 05/23/23 09:44 AB [id number]) Current Condition History of Current Condition Onset Date 01/13/23 History of Current Condition Pt reports she passed out after giving blood and fell, which caused a right clavicular fracture. She was in a sling for about 2 weeks, then was instructed to do minimal activity, but avoid reaching up or lifting anything. Currently, she reports a tightness on the right side of her chest near her clavicle, pain/tension on the right side of her neck. She also states she started to get carpal tunnel from wearing the sling, as she sometimes gets pain down to her arm, and was given carpal tunnel exercises. The pt states she was instructed by her doctor to only perform stretching for her right arm. She is right hand dominant. Future Testing and Treatments Planned 04/05/23 ortho follow up Treatment Goals Patient/Caregiver Goals To be able to perform ADLs, IADLs and recreational activities Current Functional Impairments (Reported) Functional Limitations- ADL's Able to perform all ADLs Functional Limitations- Work/School Retired Functional Limitations- Recreation/ Is able to perform all ADLs Hobbies and IADLs but becomes sore in her shoulder afterward Functional Limitations- Other Still difficult to lift heavier items (ex: cat iron pot) PT-OP-C Subjective Start: 03/29/23 09:19 Freq: Status: Active Protocol: Document 06/20/23 09:07 NM (Rec: 06/20/23 09:46 NM [id number]) OP-PT Subjective Patient Comments Patient Comments Pt reports no pain or stiffness today. She has been doing her exercises at home. PT-OP-J Posture/Palpation/Skin Start: 03/29/23 09:19 Freq: Status: Active Protocol: Document 05/23/23 09:44 AB (Rec: 05/23/23 09:44 AB [id number]) Posture Evaluation Position Sitting T-Spine Posture Increased Kyphosis Shoulder Posture (L) Elevated PT-OP-K Range of Motion Start: 03/29/23 09:19 Freq: Status: Active Protocol: Document 05/23/23 08:35 AB (Rec: 05/23/23 09:44 AB [id number]) Cervical Spine Range of Motion Cervical Spine Active Degrees Testing Position Sitting Flexion 35 Extension 60 Rotation Left 54 Rotation Right 65 Lateral Flexion Left 25 Lateral Flexion Right 35 ROM Limitations Soft Tissue Tightness Comments Denies pain with all motions Shoulder Goniometric Range of Motion Shoulder Right Active Shoulder ROM WFL Yes Testing Position Sitting Flexion 144 Abduction 146 External Rotation at 0 degrees Abduction 72 Internal Rotation Behind Back (text) T10 Comments Functional ER: C6 Denies pain but feels like she is straining more compared to her right Left Active Shoulder ROM WFL Yes Testing Position Sitting Flexion 150 Abduction 160 External Rotation at 0 degrees Abduction 75 Internal Rotation Behind Back (text) T10 Comments Functional ER: T3 PT-OP-M Strength Start: 03/29/23 09:19 Freq: Status: Active Protocol: Document 05/23/23 08:35 AB (Rec: 05/23/23 09:44 AB [id number]) Shoulder Strength Shoulder Manual Muscle Testing Right Flexion 4- Good- Extension 4+ Good+ Abduction (C5) 4 Good External Rotation 4 Good Internal Rotation 4+ Good+ Comments Pain with flexion Left Flexion 5 Normal Extension 5 Normal Abduction (C5) 4+ Good+ External Rotation 5 Normal Internal Rotation 5 Normal Elbow/Forearm Strength Elbow and Forearm Manual Muscle Testing Right Flexion (C6) 5 Normal Extension (C7) 5 Normal Left Flexion (C6) 5 Normal Extension (C7) 5 Normal PT-OP-Q Treatments Start: 03/29/23 09:19 Freq: Status: Active Protocol: Document 06/20/23 09:07 NM (Rec: 06/20/23 09:46 NM [id number]) Therapeutic Exercises Standing Exercises Push-up Side bilateral Equipment Used wall, full push up Reps/Minutes 2x10 Comments with added scap protraction at end; cues to breathe Serratus foam roll Standing Exercise Name for serratus and rotator cuff strengthening Side bilateral Resistance green tb (lvl 3) Equipment Used foam foam roller, band around forearms Reps/Minutes 2x10 (1 set with band, 1 set without) Comments cues for shldr ER, pushing forearms into roller Wall clock Standing Exercise Name for serratus and rotator cuff strengthening Side bilateral Resistance green tb (lvl 3) Equipment Used wall Reps/Minutes 5 reps Comments cues for B shldr ER, chin tuck B Shldr ER Standing Exercise Name W raise (@ shldr ER 90 deg, 45 deg abd) Resistance blue tb Reps/Minutes 2x8 Comments cues for scap retraction for stability, core activation Front and lat raises Standing Exercise Name progressed to shldr fly Side bilateral Resistance blue tb Reps/Minutes 1x10 Comments cues for posture, PT-OP-T Assessment and Plan Start: 03/29/23 09:19 Freq: Status: Active Protocol: Document 06/20/23 09:07 NM (Rec: 06/20/23 09:46 NM [id number]) Physical Therapy Assessment Goals Seven Impairment Patient questionnaire Short Term Goal (STG) Pt's QuickDASH score to improve to 50% or better and NDI score to improve to 14/50 or better to demonstrate improving symptoms for an improved QOL. STG Duration 4 Head Packager Goal (LTG) Pt's QuickDASH score to improve to 30% or better and NDI score to improve to 4/50 or better to demonstrate improving symptoms for an improved QOL. LTG Duration 8 Six Impairment C spine AROM deficits Short Term Goal (STG) Pt's cervical spine left lateral flexion AROM to improve to 25 degrees or better to show improving ROM in order to improve ability to perform ADLs and IADLs. STG Duration 4 Mcc Goal (LTG) Pt's cervical spine left lateral flexion AROM to improve to 30 degrees or better to show improving ROM in order to improve ability to perform ADLs and IADLs. Five Impairment C spine AROM deficits Short Term Goal (STG) Pt's cervical spine left rotation AROM to improve to 50 degrees or better to show improving ROM in order to improve ability to perform ADLs and IADLs. STG Duration 4 Mcc Goal (LTG) Pt's cervical spine left rotation AROM to improve to 55 degrees or better to show improving ROM in order to improve ability to perform ADLs and IADLs. LTG Duration 8 Four Impairment Shoulder AROM deficits Short Term Goal (STG) Pt to improve shoulder functional IR AROM to L1 or better to show improving ROM in order to improve ability to perform ADLs and IADLs. STG Duration 4 Head Packager Goal (LTG) Pt to improve shoulder functional IR AROM to T10 or better to show improving ROM in order to improve ability to perform ADLs and IADLs. LTG Duration 8 Three Impairment Shoulder AROM deficits Short Term Goal (STG) Pt to improve shoulder functional ER AROM to C7 or better to show improving ROM in order to improve ability to perform ADLs and IADLs. STG Duration 4 Head Packager Goal (LTG) Pt to improve shoulder functional ER AROM to T3 or better to show improving ROM in order to improve ability to perform ADLs and IADLs. LTG Duration 8 Two Impairment Shoulder AROM deficits Short Term Goal (STG) Pt to improve shoulder ABD AROM to 110 degrees or better to show improving ROM in order to improve ability to perform ADLs and IADLs. STG Duration 4 Mcc Goal (LTG) Pt to improve shoulder ABD AROM to 160 degrees or better to show improving ROM in order to improve ability to perform ADLs and IADLs. LTG Duration 8 One Impairment Shoulder AROM deficits Short Term Goal (STG) Pt to improve shoulder flexion AROM to 120 degrees or better to show improving ROM in order to improve ability to perform ADLs and IADLs. STG Duration 4 Head Packager Goal (LTG) Pt to improve shoulder flexion AROM to 150 degrees or better to show improving ROM in order to improve ability to perform ADLs and IADLs. LTG Duration 8 Assessment Summary Assessment Pt tolerated treatment fair. Tmt focus today on periscapular strengthening; progressed UE strengthening into more multi-directional movement today. Trialed wall clocks and wall push-ups. Pt reported lightheadedness and a cold sweat after completing exercises; vitals taken 85/53 mmHg, and pt placed in supine with legs elevated. She reports that she does not normally eat prior to PT sessions, and she did not eat anything before coming to her session today. Blood pressure retaken about 10 min later, now 121/71 with symptom resolution, which pt reports is her normal BP. Session terminated at that point due to time. Pt instructed to reach out to her doctor if symptoms return or worsen. Progress note in 1-2 visits to determine possible pt discharge. Pt would benefit from skilled PT to address impairments in neck mobility and strength, R UE strength and activity tolerance to return to PLOF. Physical Therapy Plan Frequency and Duration Frequency of Treatment 2x/Week Duration of treatment (weeks) 6 Plan of Care Start Date 05/23/23 Plan of Care End Date 07/04/23 Therapeutic Interventions Therapeutic Interventions Home Exercise Program,Joint Mobilizations,Manual Therapy, Neuromuscular Re-education, Patient/Caregiver Education, Self-Care/Home Management,Soft Tissue Mobilization,Taping, Therapeutic Activities, Therapeutic Exercises Modalities Cold Pack/Ice Massage,Electric Stimulation,Hot Packs Next Visit Focus/Plan Next Note Type Treatment Note Next Visit Plan Cervical and UE ROM. Continue strengthening and progressing load tolerance
--- NOTE | 2023-06-23 09:59 | PT.OTN ---
Current Diagnoses Nondisplaced fracture of shaft of right clavicle, initial encounter for closed fracture (06/23/23) Physical Therapy Treatment Note PT-OP-A Visit Information Start: 03/29/23 09:19 Freq: Status: Active Protocol: Document 06/23/23 09:05 NM (Rec: 06/23/23 09:59 NM [id number]) Out-Patient Physical Therapy Visit Information Visit Information Visit Type Treatment Note Visit Note 04/03 Visit Start Time 09:03 Visit Stop Time 09:45 Total Visit Minutes 42 Visit Number 21 PT-OP-B Current Condition Start: 03/29/23 09:19 Freq: Status: Active Protocol: Document 05/23/23 08:35 AB (Rec: 05/23/23 09:44 AB [id number]) Current Condition History of Current Condition Onset Date 01/13/23 History of Current Condition Pt reports she passed out after giving blood and fell, which caused a right clavicular fracture. She was in a sling for about 2 weeks, then was instructed to do minimal activity, but avoid reaching up or lifting anything. Currently, she reports a tightness on the right side of her chest near her clavicle, pain/tension on the right side of her neck. She also states she started to get carpal tunnel from wearing the sling, as she sometimes gets pain down to her arm, and was given carpal tunnel exercises. The pt states she was instructed by her doctor to only perform stretching for her right arm. She is right hand dominant. Future Testing and Treatments Planned 04/05/23 ortho follow up Treatment Goals Patient/Caregiver Goals To be able to perform ADLs, IADLs and recreational activities Current Functional Impairments (Reported) Functional Limitations- ADL's Able to perform all ADLs Functional Limitations- Work/School Retired Functional Limitations- Recreation/ Is able to perform all ADLs Hobbies and IADLs but becomes sore in her shoulder afterward Functional Limitations- Other Still difficult to lift heavier items (ex: cat iron pot) PT-OP-C Subjective Start: 03/29/23 09:19 Freq: Status: Active Protocol: Document 06/23/23 09:05 NM (Rec: 06/23/23 09:59 NM [id number]) OP-PT Subjective Patient Comments Patient Comments Pt reports no pain but some soreness in her R shoulder. She ate and drank some gatorade prior to the appt; she did not have any other symptoms or issues after her last session. She is planning on keeping her remaining appts and will d/c at the end. PT-OP-J Posture/Palpation/Skin Start: 03/29/23 09:19 Freq: Status: Active Protocol: Document 05/23/23 09:44 AB (Rec: 05/23/23 09:44 AB [id number]) Posture Evaluation Position Sitting T-Spine Posture Increased Kyphosis Shoulder Posture (L) Elevated PT-OP-K Range of Motion Start: 03/29/23 09:19 Freq: Status: Active Protocol: Document 05/23/23 08:35 AB (Rec: 05/23/23 09:44 AB [id number]) Cervical Spine Range of Motion Cervical Spine Active Degrees Testing Position Sitting Flexion 35 Extension 60 Rotation Left 54 Rotation Right 65 Lateral Flexion Left 25 Lateral Flexion Right 35 ROM Limitations Soft Tissue Tightness Comments Denies pain with all motions Shoulder Goniometric Range of Motion Shoulder Right Active Shoulder ROM WFL Yes Testing Position Sitting Flexion 144 Abduction 146 External Rotation at 0 degrees Abduction 72 Internal Rotation Behind Back (text) T10 Comments Functional ER: C6 Denies pain but feels like she is straining more compared to her right Left Active Shoulder ROM WFL Yes Testing Position Sitting Flexion 150 Abduction 160 External Rotation at 0 degrees Abduction 75 Internal Rotation Behind Back (text) T10 Comments Functional ER: T3 PT-OP-M Strength Start: 03/29/23 09:19 Freq: Status: Active Protocol: Document 05/23/23 08:35 AB (Rec: 05/23/23 09:44 AB [id number]) Shoulder Strength Shoulder Manual Muscle Testing Right Flexion 4- Good- Extension 4+ Good+ Abduction (C5) 4 Good External Rotation 4 Good Internal Rotation 4+ Good+ Comments Pain with flexion Left Flexion 5 Normal Extension 5 Normal Abduction (C5) 4+ Good+ External Rotation 5 Normal Internal Rotation 5 Normal Elbow/Forearm Strength Elbow and Forearm Manual Muscle Testing Right Flexion (C6) 5 Normal Extension (C7) 5 Normal Left Flexion (C6) 5 Normal Extension (C7) 5 Normal PT-OP-Q Treatments Start: 03/29/23 09:19 Freq: Status: Active Protocol: Document 06/23/23 09:05 NM (Rec: 06/23/23 09:59 NM [id number]) Cardio Equipment Upper Body Ergometer (UBE) Duration (Minutes) 5 Other 2.5' fwd, 2.5' bwd Therapeutic Exercises Sitting Exercises Cervical ROM towel strethc Sitting Exercise Name Rotation with overpressure Side bilateral Equipment Used hands Reps/Minutes 2x30 UT, LS, scalene stretch Sitting Exercise Name UT/LS Side right Reps/Minutes 2x30 Comments chin tuck Standing Exercises Banded upper cut Standing Exercise Name 90 eg elbow flex in neutral, from hip > 90 deg shldr flex Side right Resistance lvl 3 green tb Reps/Minutes 2x10 Push-up Side bilateral Equipment Used wall, full push up Reps/Minutes 12 Comments with added scap protraction; better tolerance today Serratus foam roll Standing Exercise Name Serratus ball roll, arm ext @ 90 deg flex Side right Resistance yellow ball (2.2#) Reps/Minutes 30 CW, 30CCW Comments cues for shoulder protract Wall clock Standing Exercise Name for serratus and rotator cuff strengthening Side bilateral Resistance orange tb Equipment Used wall Reps/Minutes 5 reps Comments cues for B shldr ER, chin tuck B Shldr ER Standing Exercise Name W raise (@ shldr ER 90 deg, 45 deg abd) Resistance green tb Reps/Minutes 2x8 Comments cues for scap retraction for stability, core activation PNF Standing Exercise Name D2 flex Side right Resistance venetie green tb lvl 3 Reps/Minutes 2x12 TB IR and ER Standing Exercise Name @ 90/90 deg shoulder elevation Resistance orange tb Reps/Minutes 1x8 Comments only able to maintain 45 deg ER with arm elevated Manual Therapy Treatment Joint Mobilizations R Glenohumeral jt Direction A-P Grade III Body Position Hooklying Reps/Duration 8x30 Comments To increase GHJ ER, performed at 45 deg up to 90 deg HABD Manual Techniques PROM Type R GHJ- ER, IR + ADD Body Position Hooklying Reps/Duration 2x30 ea Comments To improve ER and IR at 90 deg HABD for end range ROM PT-OP-T Assessment and Plan Start: 03/29/23 09:19 Freq: Status: Active Protocol: Document 06/23/23 09:05 NM (Rec: 06/23/23 09:59 NM [id number]) Physical Therapy Assessment Rehab Potential Rehabilitation Potential Good Evaluation Complexity Number of Personal Factors/Comorbidities 1-2 Number of Body Systems Impaired 1-2 Clinical Presentation at Evaluation Stable Impairments Impairments Functional Activities,Pain, Posture,ROM,Soft Tissue Mobility,Strength Goals Seven Impairment Patient questionnaire Short Term Goal (STG) Pt's QuickDASH score to improve to 50% or better and NDI score to improve to 14/50 or better to demonstrate improving symptoms for an improved QOL. STG Duration 4 De[employer] Goal (LTG) Pt's QuickDASH score to improve to 30% or better and NDI score to improve to 4/50 or better to demonstrate improving symptoms for an improved QOL. LTG Duration 8 Six Impairment C spine AROM deficits Short Term Goal (STG) Pt's cervical spine left lateral flexion AROM to improve to 25 degrees or better to show improving ROM in order to improve ability to perform ADLs and IADLs. STG Duration 4 Deck[employer] Goal (LTG) Pt's cervical spine left lateral flexion AROM to improve to 30 degrees or better to show improving ROM in order to improve ability to perform ADLs and IADLs. Five Impairment C spine AROM deficits Short Term Goal (STG) Pt's cervical spine left rotation AROM to improve to 50 degrees or better to show improving ROM in order to improve ability to perform ADLs and IADLs. STG Duration 4 De[employer] Goal (LTG) Pt's cervical spine left rotation AROM to improve to 55 degrees or better to show improving ROM in order to improve ability to perform ADLs and IADLs. LTG Duration 8 Four Impairment Shoulder AROM deficits Short Term Goal (STG) Pt to improve shoulder functional IR AROM to L1 or better to show improving ROM in order to improve ability to perform ADLs and IADLs. STG Duration 4 De[employer] Goal (LTG) Pt to improve shoulder functional IR AROM to T10 or better to show improving ROM in order to improve ability to perform ADLs and IADLs. LTG Duration 8 Three Impairment Shoulder AROM deficits Short Term Goal (STG) Pt to improve shoulder functional ER AROM to C7 or better to show improving ROM in order to improve ability to perform ADLs and IADLs. STG Duration 4 [facility] Goal (LTG) Pt to improve shoulder functional ER AROM to T3 or better to show improving ROM in order to improve ability to perform ADLs and IADLs. LTG Duration 8 Two Impairment Shoulder AROM deficits Short Term Goal (STG) Pt to improve shoulder ABD AROM to 110 degrees or better to show improving ROM in order to improve ability to perform ADLs and IADLs. STG Duration 4 De[employer] Goal (LTG) Pt to improve shoulder ABD AROM to 160 degrees or better to show improving ROM in order to improve ability to perform ADLs and IADLs. LTG Duration 8 One Impairment Shoulder AROM deficits Short Term Goal (STG) Pt to improve shoulder flexion AROM to 120 degrees or better to show improving ROM in order to improve ability to perform ADLs and IADLs. STG Duration 4 [facility] Goal (LTG) Pt to improve shoulder flexion AROM to 150 degrees or better to show improving ROM in order to improve ability to perform ADLs and IADLs. LTG Duration 8 Progress Towards Goals Progress Towards Goals Progressing Toward Goals Assessment Summary Assessment Pt tolerated treatment well. Able to perform wall push-ups and all activities without pain or discomfort in R shoulder. Continued with periscapular & rotator cuff strengthening and shoulder stabilization; continued to work into multi-directional planes. Pt continues to demonstrate improvements in activity tolerance and shoulder stability. Pt demos limitations in R shoulder ER, especially at >90deg shoulder elevation. Manual tmt to improve shldr ER/IR uding grade II P-A mobilizations and PROM up to 90 deg HABD. PN next visit with plan to d/c with HEP in 3 visits. Pt would benefit from skilled PT to address cervical/R shoulder mobility and strength deficits in addition to progressive UE loading to return to PLOF. Physical Therapy Plan Frequency and Duration Frequency of Treatment 2x/Week Duration of treatment (weeks) 6 Plan of Care Start Date 05/23/23 Plan of Care End Date 07/04/23 Therapeutic Interventions Therapeutic Interventions Home Exercise Program,Joint Mobilizations,Manual Therapy, Neuromuscular Re-education, Patient/Caregiver Education, Self-Care/Home Management,Soft Tissue Mobilization,Taping, Therapeutic Activities, Therapeutic Exercises Modalities Cold Pack/Ice Massage,Electric Stimulation,Hot Packs Next Visit Focus/Plan Next Note Type Progress Note Next Visit Plan Assess Cervical/UE ROM and strength. Continue strengthening and progressing load tolerance
--- NOTE | 2023-06-27 09:45 | PT.OTN ---
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 She was in a sling for about 2 weeks, then was instructed to do minimal activity, but avoid reaching up or lifting anything. Currently, she reports a tightness on the right side of her chest near her clavicle, pain/tension on the right side of her neck. She also states she started to get carpal tunnel from wearing the sling, as she sometimes gets pain down to her arm, and was given carpal tunnel exercises. The pt states she was instructed by her doctor to only perform stretching for her right arm. She is right hand dominant. Future Testing and Treatments Planned 04/05/23 ortho follow up Treatment Goals Patient/Caregiver Goals To be able to perform ADLs, IADLs and recreational activities Current Functional Impairments (Reported) Functional Limitations- ADL's Able to perform all ADLs Functional Limitations- Work/School Retired Functional Limitations- Recreation/ Is able to perform all ADLs Hobbies and IADLs but becomes sore in her shoulder afterward Functional Limitations- Other Still difficult to lift heavier items (ex: cat iron pot) PT-OP-C Subjective Start: 03/29/23 09:19 Freq: Status: Active Protocol: Document 06/27/23 09:06 SP (Rec: 06/27/23 09:49 SP [id number]) OP-PT Subjective Patient Comments Patient Comments Pt reports had a touch of the flu since last tx and had to cancel last appt. She stated able to carry her 40 gal waterbottles now. PT-OP-J Posture/Palpation/Skin Start: 03/29/23 09:19 Freq: Status: Active Protocol: Document 05/23/23 09:44 AB (Rec: 05/23/23 09:44 AB [id number]) Posture Evaluation Position Sitting T-Spine Posture Increased Kyphosis Shoulder Posture (L) Elevated PT-OP-K Range of Motion Start: 03/29/23 09:19 Freq: Status: Active Protocol: Document 06/27/23 09:06 SP (Rec: 06/27/23 09:49 SP [id number]) Cervical Spine Range of Motion Cervical Spine Active Degrees Testing Position Sitting Flexion 55 Extension 40 Rotation Left 55 Rotation Right 60 Lateral Flexion Left 35 Lateral Flexion Right 35 ROM Limitations Soft Tissue Tightness Comments Denies pain with all motions Gained: Flexion:25 deg, 55* Ext: less 20 deg, 40* L rotation: gain 1 deg, 55* R rotation: less 5 deg, 60* L side bend: gained 10 deg, 35 R side bend: same 35* Shoulder Goniometric Range of Motion Shoulder Right Active Shoulder ROM WFL Yes Testing Position Sitting Flexion 135 Abduction 152 External Rotation at 0 degrees Abduction 85 Internal Rotation Behind Back (text) T11 Comments R UE AROM: FF loss 11 deg ROM, 135 * ABD gained 7 deg 152* ER gained 18 deg, 85* IT T11 Left Active Shoulder ROM WFL Yes Testing Position Sitting Flexion 150 Abduction 160 External Rotation at 0 degrees Abduction 75 Internal Rotation Behind Back (text) T10 Comments Functional ER: T3 PT-OP-M Strength Start: 03/29/23 09:19 Freq: Status: Active Protocol: Document 05/23/23 08:35 AB (Rec: 05/23/23 09:44 AB [id number]) Shoulder Strength Shoulder Manual Muscle Testing Right Flexion 4- Good- Extension 4+ Good+ Abduction (C5) 4 Good External Rotation 4 Good Internal Rotation 4+ Good+ Comments Pain with flexion Left Flexion 5 Normal Extension 5 Normal Abduction (C5) 4+ Good+ External Rotation 5 Normal Internal Rotation 5 Normal Elbow/Forearm Strength Elbow and Forearm Manual Muscle Testing Right Flexion (C6) 5 Normal Extension (C7) 5 Normal Left Flexion (C6) 5 Normal Extension (C7) 5 Normal PT-OP-Q Treatments Start: 03/29/23 09:19 Freq: Status: Active Protocol: Document 06/27/23 09:06 SP (Rec: 06/27/23 09:49 SP [id number]) Cardio Equipment Upper Body Ergometer (UBE) Duration (Minutes) 5 RPM 80 Seat Position 11 Height 2.5 Other 2.5' fwd, 2.5' bwd Therapeutic Exercises Sitting Exercises Cervical ROM towel strethc Sitting Exercise Name L SB, Rotation with overpressure Side bilateral Resistance good posture/elongated posture corrections post 1 cue Equipment Used hands better than towel SNAG rotation Reps/Minutes 5 reps total 15 or 5 breaths Comments cued pull across opp zygomatic arch toward that arm side- good stretch CS UT, LS, scalene stretch Sitting Exercise Name UT/LS Side right Reps/Minutes 2x30 Comments chin tuck Therapeutic Activity Therapeutic Activity ROM measurements Comments CS, R shld progression. PT-OP-T Assessment and Plan Start: 03/29/23 09:19 Freq: Status: Active Protocol: Document 06/27/23 09:06 SP (Rec: 06/27/23 09:49 SP [id number]) Physical Therapy Assessment Goals Seven Impairment Patient questionnaire Short Term Goal (STG) Pt's QuickDASH score to improve to 50% or better and NDI score to improve to 14/50 or better to demonstrate improving symptoms for an improved QOL. STG Duration 4 Jail Goal (LTG) Pt's QuickDASH score to improve to 30% or better and NDI score to improve to 4/50 or better to demonstrate improving symptoms for an improved QOL. LTG Duration 8 Six Impairment C spine AROM deficits Short Term Goal (STG) Pt's cervical spine left lateral flexion AROM to improve to 25 degrees or better to show improving ROM in order to improve ability to perform ADLs and IADLs. GOAL MET: 35 deg L SB STG Duration 4 GOAL MET Jail Goal (LTG) Pt's cervical spine left lateral flexion AROM to improve to 30 degrees or better to show improving ROM in order to improve ability to perform ADLs and IADLs. 06/27/23: GOAL MET: AROM 35 deg L SB LTG Duration GOAL MET Five Impairment C spine AROM deficits Short Term Goal (STG) Pt's cervical spine left rotation AROM to improve to 50 degrees or better to show improving ROM in order to improve ability to perform ADLs and IADLs. 06/27/23: GOAL MET: 55 deg flexion STG Duration 4 GOAL MET Chain Splitter Goal (LTG) Pt's cervical spine left rotation AROM to improve to 55 degrees or better to show improving ROM in order to improve ability to perform ADLs and IADLs. 06/27/23: MET GOAL: 55 deg LTG Duration 8 GOAL MET Four Impairment Shoulder AROM deficits Short Term Goal (STG) Pt to improve shoulder functional IR AROM to L1 or better to show improving ROM in order to improve ability to perform ADLs and IADLs. 06/27/23: GOAL MET: T11 STG Duration 4 GOAL MET Chain Splitter Goal (LTG) Pt to improve shoulder functional IR AROM to T10 or better to show improving ROM in order to improve ability to perform ADLs and IADLs. 06/27/23: almost met: T11 LTG Duration 8 almost met 06/27/23 Three Impairment Shoulder AROM deficits Short Term Goal (STG) Pt to improve shoulder functional ER AROM to C7 or better to show improving ROM in order to improve ability to perform ADLs and IADLs. 06/27/23: GOAL MET: T3 STG Duration 4 GOAL MET Jail Goal (LTG) Pt to improve shoulder functional ER AROM to T3 or better to show improving ROM in order to improve ability to perform ADLs and IADLs. 06/27/23: GOAL MET: T3 LTG Duration 8 GOAL MET Two Impairment Shoulder AROM deficits Short Term Goal (STG) Pt to improve shoulder ABD AROM to 110 degrees or better to show improving ROM in order to improve ability to perform ADLs and IADLs. STG Duration 4 Chain Splitter Goal (LTG) Pt to improve shoulder ABD AROM to 160 degrees or better to show improving ROM in order to improve ability to perform ADLs and IADLs. LTG Duration 8 One Impairment Shoulder AROM deficits Short Term Goal (STG) Pt to improve shoulder flexion AROM to 120 degrees or better to show improving ROM in order to improve ability to perform ADLs and IADLs. 06/27/23: GOAL MET: 135 deg STG Duration 4 GOAL MET Jail Goal (LTG) Pt to improve shoulder flexion AROM to 150 degrees or better to show improving ROM in order to improve ability to perform ADLs and IADLs. 06/27/23: progresssing FF 135 deg LTG Duration 8 goal progressing Progress Towards Goals Progress Towards Goals Progressing Toward Goals Progress Comments Denies pain with all motions Gained: Flexion:25 deg, 55* Ext: less 20 deg, 40* L rotation: gain 1 deg, 55* R rotation: less 5 deg, 60* L side bend: gained 10 deg, 35 R side bend: same 35* R UE AROM: FF loss 11 deg ROM, 135 * ABD gained 7 deg 152* ER gained 18 deg, 85* IT T11 Assessment Summary Assessment Pt making gains in CS ROM, meeting goals. Still lacking R shld flexion but reports ableto carry her 40 gal water bottles now. Good feedback stretching review. Pt has 2 more appts and will review HEP and give progression HEP if needed. Physical Therapy Plan Frequency and Duration Frequency of Treatment 2x/Week Duration of treatment (weeks) 6 Plan of Care Start Date 05/23/23 Plan of Care End Date 07/04/23 Therapeutic Interventions Therapeutic Interventions Home Exercise Program,Joint Mobilizations,Manual Therapy, Neuromuscular Re-education, Patient/Caregiver Education, Self-Care/Home Management,Soft Tissue Mobilization,Taping, Therapeutic Activities, Therapeutic Exercises Modalities Cold Pack/Ice Massage,Electric Stimulation,Hot Packs Next Visit Focus/Plan Next Note Type Progress Note Next Visit Plan Update HEP next visit. Complete questionaire goal feedback progression. POC: Assess Cervical/UE ROM and strength. Continue strengthening and progressing load tolerance
--- NOTE | 2023-06-30 09:48 | PT.OTN ---
Current Diagnoses Nondisplaced fracture of shaft of right clavicle, initial encounter for closed fracture (06/30/23) Physical Therapy Treatment Note PT-OP-A Visit Information Start: 03/29/23 09:19 Freq: Status: Active Protocol: Document 06/30/23 09:06 SP (Rec: 06/30/23 10:55 SP [id number]) Out-Patient Physical Therapy Visit Information Visit Information Visit Type Treatment Note Visit Note 06/03 Visit Start Time 09:06 Visit Stop Time 09:48 Total Visit Minutes 42 Visit Number 23 Number of SELF PAY REPRESENTATIVE Visits 2 Evaluation Information Evaluation Date 03/29/23 Precautions Precautions Osteopenia PT-OP-B Current Condition Start: 03/29/23 09:19 Freq: Status: Active Protocol: Document 05/23/23 08:35 AB (Rec: 05/23/23 09:44 AB [id number]) Current Condition History of Current Condition Onset Date 01/13/23 History of Current Condition Pt reports she passed out after giving blood and fell, which caused a right clavicular fracture. She was in a sling for about 2 weeks, then was instructed to do minimal activity, but avoid reaching up or lifting anything. Currently, she reports a tightness on the right side of her chest near her clavicle, pain/tension on the right side of her neck. She also states she started to get carpal tunnel from wearing the sling, as she sometimes gets pain down to her arm, and was given carpal tunnel exercises. The pt states she was instructed by her doctor to only perform stretching for her right arm. She is right hand dominant. Future Testing and Treatments Planned 04/05/23 ortho follow up Treatment Goals Patient/Caregiver Goals To be able to perform ADLs, IADLs and recreational activities Current Functional Impairments (Reported) Functional Limitations- ADL's Able to perform all ADLs Functional Limitations- Work/School Retired Functional Limitations- Recreation/ Is able to perform all ADLs Hobbies and IADLs but becomes sore in her shoulder afterward Functional Limitations- Other Still difficult to lift heavier items (ex: cat iron pot) PT-OP-C Subjective Start: 03/29/23 09:19 Freq: Status: Active Protocol: Document 06/30/23 09:06 SP (Rec: 06/30/23 10:55 SP [id number]) OP-PT Subjective Patient Comments Patient Comments Pt reports felt fine after last tx. She reported able to do gardening stuff, carry anything needed, put items away reaching OH. PT-OP-J Posture/Palpation/Skin Start: 03/29/23 09:19 Freq: Status: Active Protocol: Document 05/23/23 09:44 AB (Rec: 05/23/23 09:44 AB [id number]) Posture Evaluation Position Sitting T-Spine Posture Increased Kyphosis Shoulder Posture (L) Elevated PT-OP-K Range of Motion Start: 03/29/23 09:19 Freq: Status: Active Protocol: Document 06/27/23 09:06 SP (Rec: 06/27/23 09:49 SP [id number]) Cervical Spine Range of Motion Cervical Spine Active Degrees Testing Position Sitting Flexion 55 Extension 40 Rotation Left 55 Rotation Right 60 Lateral Flexion Left 35 Lateral Flexion Right 35 ROM Limitations Soft Tissue Tightness Comments Denies pain with all motions Gained: Flexion:25 deg, 55* Ext: less 20 deg, 40* L rotation: gain 1 deg, 55* R rotation: less 5 deg, 60* L side bend: gained 10 deg, 35 R side bend: same 35* Shoulder Goniometric Range of Motion Shoulder Right Active Shoulder ROM WFL Yes Testing Position Sitting Flexion 135 Abduction 152 External Rotation at 0 degrees Abduction 85 Internal Rotation Behind Back (text) T11 Comments R UE AROM: FF loss 11 deg ROM, 135 * ABD gained 7 deg 152* ER gained 18 deg, 85* IT T11 Left Active Shoulder ROM WFL Yes Testing Position Sitting Flexion 150 Abduction 160 External Rotation at 0 degrees Abduction 75 Internal Rotation Behind Back (text) T10 Comments Functional ER: T3 PT-OP-M Strength Start: 03/29/23 09:19 Freq: Status: Active Protocol: Document 05/23/23 08:35 AB (Rec: 05/23/23 09:44 AB [id number]) Shoulder Strength Shoulder Manual Muscle Testing Right Flexion 4- Good- Extension 4+ Good+ Abduction (C5) 4 Good External Rotation 4 Good Internal Rotation 4+ Good+ Comments Pain with flexion Left Flexion 5 Normal Extension 5 Normal Abduction (C5) 4+ Good+ External Rotation 5 Normal Internal Rotation 5 Normal Elbow/Forearm Strength Elbow and Forearm Manual Muscle Testing Right Flexion (C6) 5 Normal Extension (C7) 5 Normal Left Flexion (C6) 5 Normal Extension (C7) 5 Normal PT-OP-Q Treatments Start: 03/29/23 09:19 Freq: Status: Active Protocol: Document 06/30/23 09:06 SP (Rec: 06/30/23 10:55 SP [id number]) Cardio Equipment Recumbent Elliptical (Biodex) Duration (Minutes) 6 Resistance 3 Seat Position 4 (closest) Other 50 SPM, UBE not available Therapeutic Exercises Sidelying Exercises open book Sidelying Exercise Name review Side bilateral Reps/Minutes x10 Comments good ROM comfort, cued head turn with arm Sitting Exercises cervical retraction Sitting Exercise Name trialed in PT Resistance TB #1 Reps/Minutes x10 Comments good feedback, cued arms rest on chest only head retracts to neutral range Cervical ROM towel strethc Sitting Exercise Name L SB, Rotation with overpressure Side bilateral Resistance good posture/elongated posture corrections post 1 cue Equipment Used hands better than towel SNAG rotation Reps/Minutes 5 reps total 15 or 5 breaths Comments cued pull across opp zygomatic arch toward that arm side- good stretch CS Standing Exercises Banded upper cut Standing Exercise Name 90 eg elbow flex in neutral, from hip > 90 deg shldr flex Side bilateral Resistance lvl 3 green tb- alternate BUEs Reps/Minutes 2x10 Comments control eccentric return, front mirror for self shoulder /postural alignment Push-up Side bilateral Equipment Used incline rail (counter for home ) Reps/Minutes 12 Comments with added scap protraction; better tolerance today Wall clock Standing Exercise Name for serratus and rotator cuff strengthening Side bilateral Resistance orange tb Equipment Used wall Reps/Minutes 5 reps Comments cues for B shldr ER, chin tuck Upright row Standing Exercise Name HEP reviewed Side bilateral Resistance 5# db Equipment Used front mirror for self feedback level shld and no UT. Reps/Minutes 2x15 Comments cues DB contact, improved more LT recruitment stabilization Front and lat raises Standing Exercise Name FF, scaption, ABD Side bilateral Resistance lvl 1 TB under foot Reps/Minutes 10 reps each Comments cues for level shld and CS retraction neutral bandwalking Side bilateral Resistance Lvl 1 Tb light blue Equipment Used wall Reps/Minutes x20ft ea Comments no pain reported, shoulder muscles tiring PT-OP-T Assessment and Plan Start: 03/29/23 09:19 Freq: Status: Active Protocol: Document 06/30/23 09:06 SP (Rec: 06/30/23 10:55 SP [id number]) Physical Therapy Assessment Goals Seven Impairment Patient questionnaire Short Term Goal (STG) Pt's QuickDASH score to improve to 50% or better and NDI score to improve to 14/50 or better to demonstrate improving symptoms for an improved QOL. 06/30/23: will bring back minale next tx for feedback progression. STG Duration 4 Care Home Goal (LTG) Pt's QuickDASH score to improve to 30% or better and NDI score to improve to 4/50 or better to demonstrate improving symptoms for an improved QOL. LTG Duration 8 Six Impairment C spine AROM deficits Short Term Goal (STG) Pt's cervical spine left lateral flexion AROM to improve to 25 degrees or better to show improving ROM in order to improve ability to perform ADLs and IADLs. GOAL MET: 35 deg L SB STG Duration 4 GOAL MET Ivory Carver Goal (LTG) Pt's cervical spine left lateral flexion AROM to improve to 30 degrees or better to show improving ROM in order to improve ability to perform ADLs and IADLs. 06/27/23: GOAL MET: AROM 35 deg L SB LTG Duration GOAL MET Five Impairment C spine AROM deficits Short Term Goal (STG) Pt's cervical spine left rotation AROM to improve to 50 degrees or better to show improving ROM in order to improve ability to perform ADLs and IADLs. 06/27/23: GOAL MET: 55 deg flexion STG Duration 4 GOAL MET Ivory Carver Goal (LTG) Pt's cervical spine left rotation AROM to improve to 55 degrees or better to show improving ROM in order to improve ability to perform ADLs and IADLs. 06/27/23: MET GOAL: 55 deg LTG Duration 8 GOAL MET Four Impairment Shoulder AROM deficits Short Term Goal (STG) Pt to improve shoulder functional IR AROM to L1 or better to show improving ROM in order to improve ability to perform ADLs and IADLs. 06/27/23: GOAL MET: T11 STG Duration 4 GOAL MET Ivory Carver Goal (LTG) Pt to improve shoulder functional IR AROM to T10 or better to show improving ROM in order to improve ability to perform ADLs and IADLs. 06/27/23: almost met: T11 LTG Duration 8 almost met 06/27/23 Three Impairment Shoulder AROM deficits Short Term Goal (STG) Pt to improve shoulder functional ER AROM to C7 or better to show improving ROM in order to improve ability to perform ADLs and IADLs. 06/27/23: GOAL MET: T3 STG Duration 4 GOAL MET Ivory Carver Goal (LTG) Pt to improve shoulder functional ER AROM to T3 or better to show improving ROM in order to improve ability to perform ADLs and IADLs. 06/27/23: GOAL MET: T3 LTG Duration 8 GOAL MET Two Impairment Shoulder AROM deficits Short Term Goal (STG) Pt to improve shoulder ABD AROM to 110 degrees or better to show improving ROM in order to improve ability to perform ADLs and IADLs. 06/27/23: GOAL MET: R shld AROM : 152 deg STG Duration 4 goal MET Care Home Goal (LTG) Pt to improve shoulder ABD AROM to 160 degrees or better to show improving ROM in order to improve ability to perform ADLs and IADLs. 06/27/23: progressing : 152 deg LTG Duration 8 progressing 06/27/23 One Impairment Shoulder AROM deficits Short Term Goal (STG) Pt to improve shoulder flexion AROM to 120 degrees or better to show improving ROM in order to improve ability to perform ADLs and IADLs. 06/27/23: GOAL MET: 135 deg STG Duration 4 GOAL MET Care Home Goal (LTG) Pt to improve shoulder flexion AROM to 150 degrees or better to show improving ROM in order to improve ability to perform ADLs and IADLs. 06/27/23: progresssing FF 135 deg LTG Duration 8 goal progressing Assessment Summary Assessment Pt progressing ROM with ability to perform most ADL tasks used to do now. She tolerated ther ex against resistance today in free standing, cues for cervical alignment neutral retraction and use of mirror helped self postural corrections with gained LT engagement, less UT recruitment. Pt would benefit from 1 more appt to finalize HEP, condense if needed and ready to continue on her own. Physical Therapy Plan Frequency and Duration Frequency of Treatment 2x/Week Duration of treatment (weeks) 6 Plan of Care Start Date 05/23/23 Plan of Care End Date 07/04/23 Therapeutic Interventions Therapeutic Interventions Home Exercise Program,Joint Mobilizations,Manual Therapy, Neuromuscular Re-education, Patient/Caregiver Education, Self-Care/Home Management,Soft Tissue Mobilization,Taping, Therapeutic Activities, Therapeutic Exercises Modalities Cold Pack/Ice Massage,Electric Stimulation,Hot Packs Next Visit Focus/Plan Next Note Type Discharge Summary Next Visit Plan Finalize HEP/condense needed next visit for DC to HEP. Provided QuickDash questionaire and patient satisifaction survey to bring back next.
--- NOTE | 2023-07-04 13:37 | PT.OTN ---
Current Diagnoses Nondisplaced fracture of shaft of right clavicle, initial encounter for closed fracture (07/04/23) Physical Therapy Treatment Note PT-OP-A Visit Information Start: 03/29/23 09:19 Freq: Status: Active Protocol: Document 07/04/23 09:12 NM (Rec: 07/04/23 09:45 NM [id number]) Out-Patient Physical Therapy Visit Information Visit Information Visit Type Discharge Summary Visit Start Time 09:00 Visit Stop Time 09:45 Total Visit Minutes 45 Visit Number 24 Evaluation Information Evaluation Date 03/29/23 Precautions Precautions Osteopenia PT-OP-B Current Condition Start: 03/29/23 09:19 Freq: Status: Active Protocol: Document 05/23/23 08:35 AB (Rec: 05/23/23 09:44 AB [id number]) Current Condition History of Current Condition Onset Date 01/13/23 History of Current Condition Pt reports she passed out after giving blood and fell, which caused a right clavicular fracture. She was in a sling for about 2 weeks, then was instructed to do minimal activity, but avoid reaching up or lifting anything. Currently, she reports a tightness on the right side of her chest near her clavicle, pain/tension on the right side of her neck. She also states she started to get carpal tunnel from wearing the sling, as she sometimes gets pain down to her arm, and was given carpal tunnel exercises. The pt states she was instructed by her doctor to only perform stretching for her right arm. She is right hand dominant. Future Testing and Treatments Planned 04/05/23 ortho follow up Treatment Goals Patient/Caregiver Goals To be able to perform ADLs, IADLs and recreational activities Current Functional Impairments (Reported) Functional Limitations- ADL's Able to perform all ADLs Functional Limitations- Work/School Retired Functional Limitations- Recreation/ Is able to perform all ADLs Hobbies and IADLs but becomes sore in her shoulder afterward Functional Limitations- Other Still difficult to lift heavier items (ex: cat iron pot) PT-OP-C Subjective Start: 03/29/23 09:19 Freq: Status: Active Protocol: Document 07/04/23 09:12 NM (Rec: 07/04/23 09:45 NM [id number]) OP-PT Subjective Patient Comments Patient Comments Pt reports that she has no pain or soreness. She is wanting to discharge today as she has completed all of her goals and does not have any further sessions. She reports that she is able to complete all of her ADLs/IADLs without difficulty and participate in all recreational activities. PT-OP-J Posture/Palpation/Skin Start: 03/29/23 09:19 Freq: Status: Active Protocol: Document 05/23/23 09:44 AB (Rec: 05/23/23 09:44 AB [id number]) Posture Evaluation Position Sitting T-Spine Posture Increased Kyphosis Shoulder Posture (L) Elevated PT-OP-K Range of Motion Start: 03/29/23 09:19 Freq: Status: Active Protocol: Document 07/04/23 09:12 NM (Rec: 07/04/23 12:09 NM [id number]) Cervical Spine Range of Motion Cervical Spine Active Degrees Flexion 60 Extension 60 Rotation Left 70 Rotation Right 72 Lateral Flexion Left 35 Lateral Flexion Right 35 Comments No pain, min soft tissue tightness Shoulder Goniometric Range of Motion Shoulder Right Active Shoulder ROM WFL Yes Testing Position Sitting Flexion 170 Abduction 160 External Rotation at 0 degrees Abduction 85 Internal Rotation Behind Back (text) T6 Comments functional ER: T3 PT-OP-M Strength Start: 03/29/23 09:19 Freq: Status: Active Protocol: Document 05/23/23 08:35 AB (Rec: 05/23/23 09:44 AB [id number]) Shoulder Strength Shoulder Manual Muscle Testing Right Flexion 4- Good- Extension 4+ Good+ Abduction (C5) 4 Good External Rotation 4 Good Internal Rotation 4+ Good+ Comments Pain with flexion Left Flexion 5 Normal Extension 5 Normal Abduction (C5) 4+ Good+ External Rotation 5 Normal Internal Rotation 5 Normal Elbow/Forearm Strength Elbow and Forearm Manual Muscle Testing Right Flexion (C6) 5 Normal Extension (C7) 5 Normal Left Flexion (C6) 5 Normal Extension (C7) 5 Normal PT-OP-Q Treatments Start: 03/29/23 09:19 Freq: Status: Active Protocol: Document 07/04/23 09:12 NM (Rec: 07/04/23 09:45 NM [id number]) Therapeutic Exercises Supine Exercises Thoracic extension Supine Exercise Name for T spine mobility, max shoulder mobility of kinetic chain Side bilateral Equipment Used over pillow Reps/Minutes 10x5 Comments HEP Sidelying Exercises open book Sidelying Exercise Name HEP Sitting Exercises UT, LS, scalene stretch Sitting Exercise Name HEP Standing Exercises Shldr ABD stretch Side right Equipment Used wall Reps/Minutes 2x30 Comments arm in ER, lean into wall for more of a stretch Shldr ER/IR stretch Standing Exercise Name 1. IR behind back, 2. ER behind head Side right Equipment Used towel Reps/Minutes 2x30 Comments pull towel with opposite hand Push-up Side bilateral Equipment Used incline mat Reps/Minutes 1x10 Comments small elbow flex, added scap protraction with ascent B Shldr ER Standing Exercise Name B ER > FWD shldr Flex Resistance bilateral Reps/Minutes 2x12 Comments HEP; cues to maintain forearm and elbow at same level Front and lat raises Standing Exercise Name FF, scaption, ABD Side bilateral Resistance 3# db Reps/Minutes 2x10 Comments HEP Self-Care/Home Management Treatment Education Patient Education Home Exercise Program PT-OP-T Assessment and Plan Start: 03/29/23 09:19 Freq: Status: Active Protocol: Document 07/04/23 09:12 NM (Rec: 07/04/23 09:45 NM [id number]) Physical Therapy Assessment Goals Seven Impairment Patient questionnaire Short Term Goal (STG) Pt's QuickDASH score to improve to 50% or better and NDI score to improve to 14/50 or better to demonstrate improving symptoms for an improved QOL. 06/30/23: will bring back martha next tx for feedback progression. STG Duration 4 Test Design Engineer Goal (LTG) Pt's QuickDASH score to improve to 30% or better and NDI score to improve to 4/50 or better to demonstrate improving symptoms for an improved QOL. 07/04/23: MET LTG Duration 8 GOAL MET Four Impairment Shoulder AROM deficits Short Term Goal (STG) Pt to improve shoulder functional IR AROM to L1 or better to show improving ROM in order to improve ability to perform ADLs and IADLs. 06/27/23: GOAL MET: T11 STG Duration 4 GOAL MET Test Design Engineer Goal (LTG) Pt to improve shoulder functional IR AROM to T10 or better to show improving ROM in order to improve ability to perform ADLs and IADLs. 07/04/23: MET T8 06/27/23: almost met: T11 LTG Duration 8 GOAL MET Three Impairment Shoulder AROM deficits Short Term Goal (STG) Pt to improve shoulder functional ER AROM to C7 or better to show improving ROM in order to improve ability to perform ADLs and IADLs. 06/27/23: GOAL MET: T3 STG Duration 4 GOAL MET Residential Goal (LTG) Pt to improve shoulder functional ER AROM to T3 or better to show improving ROM in order to improve ability to perform ADLs and IADLs. 06/27/23: GOAL MET: T3 LTG Duration 8 GOAL MET Two Impairment Shoulder AROM deficits Short Term Goal (STG) Pt to improve shoulder ABD AROM to 110 degrees or better to show improving ROM in order to improve ability to perform ADLs and IADLs. 06/27/23: GOAL MET: R shld AROM : 152 deg STG Duration 4 goal MET Test Design Engineer Goal (LTG) Pt to improve shoulder ABD AROM to 160 degrees or better to show improving ROM in order to improve ability to perform ADLs and IADLs. 07/04/23: MET shoulder abd AROM 160 deg 06/27/23: progressing : 152 deg LTG Duration 8 GOAL MET One Impairment Shoulder AROM deficits Short Term Goal (STG) Pt to improve shoulder flexion AROM to 120 degrees or better to show improving ROM in order to improve ability to perform ADLs and IADLs. 06/27/23: GOAL MET: 135 deg STG Duration 4 GOAL MET Residential Goal (LTG) Pt to improve shoulder flexion AROM to 150 degrees or better to show improving ROM in order to improve ability to perform ADLs and IADLs. 07/04/23: MET FF 170 deg 06/27/23: progresssing FF 135 deg LTG Duration 8 goal MET Assessment Summary Assessment Tmt focus today on creating HEP for pt to perform after discharge. Progressed front/ lateral raises, push up, shoulder IR/ER stretches, and rotator cuff exercises. Added further shoulder abduction, flexion, ER/IR stretches to maintain R shoulder ROM. Pt has been seen in clinic since 03/2023 s/p R clavicle fracture. Pt does not report any R shoulder pain or discomfort with activity, during sleep, or at rest. She has met 5/5 remaining goals regarding R shoulder ROM, strength, and activity tolerance. Previously, she had met all goals related to C spine ROM and strength. She reports that she is able to perform all ADLs/IADLs in addition to all recreational activities without limitations or pain. She also states she has no difficulty with sleeping due to pain anymore. She further reports 0/50 difficulty on her NDI and only minor difficulty with washing her back on her Quickdash ( score = 12). She is also able to lift and carry at least 40# without difficulty or without demonstrating compensations in order to be able to carry her 's water bottles, which was her primary concern as she neared discharge. Pt is agreeable to discharge and is safe to discharge from PT perspective. HEP provided for independent exercise targeting continued shoulder strengthening and shoulder/ trunk mobility. PT instructed pt to contact PCP if she should experience any changes regarding her shoulder. Pt verbalizes understanding. Physical Therapy Plan Frequency and Duration Frequency of Treatment 2x/Week Duration of treatment (weeks) 6 Plan of Care Start Date 05/23/23 Plan of Care End Date 07/04/23 Therapeutic Interventions Therapeutic Interventions Home Exercise Program,Joint Mobilizations,Manual Therapy, Neuromuscular Re-education, Patient/Caregiver Education, Self-Care/Home Management,Soft Tissue Mobilization,Taping, Therapeutic Activities, Therapeutic Exercises Modalities Cold Pack/Ice Massage,Electric Stimulation,Hot Packs Discharge Physical Therapy Discharge Reasons Goals Met Discharge Comments Pt has met 5/5 remaining goals . She able to perform all lifting, carrying, all ADLs without limitation. Next Visit Focus/Plan Next Note Type Discharge Summary Next Visit Plan D/C from PT with HEP for independent exercise
== END 2023-07-14 13:30 | disposition home or self-care (01) ==
LOC: PHYS 09:00
PROVIDERS: Family Provider Physician Assistant; PCP Internal Medicine; Referring Provider Physician Assistant; Visit Provider Physician Assistant
DX: S42.024A Nondisplaced fracture of shaft of right clavicle, initial encounter for closed fracture (principal)
CPT/HCPCS: 97110; 97140; 97161; 97530; 97535